=== PATIENT | female | born 1990 | race Caucasian/White ===

== ENCOUNTER 2022-07-06 12:42 | Emergency (ER) | payer BC, SELFPAY ==
[2022-07-06 13:03] VITALS: BP 115/47; PULSE 77; RESP 18; TEMP 36.5; O2SAT 98
--- NOTE | 2022-07-06 13:16 | ED.GENADULT ---
HPI - General Adult General Chief complaint: Unspecified Stated complaint: medication request Time Seen by Provider: 07/06/22 13:11 Source: patient Mode of arrival: ambulatory Limitations: no limitations History of Present Illness HPI narrative: Patient presents today requesting a medication refill. She has 5 days left of her Lamictal and Lexapro. She has a new patient appointment with a psychiatrist on July 23. She has been stable on her medications for the last 16 months. Denies any SI or HI at this time. Related Data Home Medications Medication Instructions Recorded Confirmed escitalopram oxalate 20 mg tablet 20 mg DAILY 07/06/22 07/06/22 lamotrigine 100 mg tablet 100 mg DAILY 07/06/22 07/06/22 Allergies Allergy/AdvReac Type Severity Reaction Status Date / Time acetaminophen [From Lortab] Allergy Unknown Verified 07/06/22 13:12 bupropion [From Wellbutrin] Allergy Unknown Verified 07/06/22 13:12 hydrocodone [From Lortab] Allergy Unknown Verified 07/06/22 13:12 levofloxacin [From Levaquin] Allergy Unknown Verified 07/06/22 13:12 metoclopramide [From Reglan] Allergy Unknown Verified 07/06/22 13:12 oseltamivir [From Tamiflu] Allergy Unknown Verified 07/06/22 13:12 varenicline [From Chantix] Allergy Unknown Verified 07/06/22 13:12 Review of Systems Review of Systems: CONSTITUTIONAL: Denies body aches, fever, chills, or sweats. EYES: Denies visual changes, redness, or discharge. ENT: Denies rhinorrhea, congestion, sore throat, or otalgia. CARDIOVASCULAR: Denies chest pain, palpitations, or edema. RESPIRATORY: Denies cough or dyspnea. GASTROINTESTINAL: Denies abdominal pain, nausea, vomiting, or diarrhea. GENITOURINARY: Denies dysuria or hematuria. SKIN: Denies rash, itching, or wounds. MUSCULOSKELETAL: Denies back pain, joint pain, or myalgia. NEUROLOGIC: Denies headache, numbness, tingling, or weakness. PSYCH: Denies depression or anxiety. [facility] Past Medical History Medical History (Updated 07/06/22 @ 13:21 by Fawn Smith, MASONRY CONTRACTOR ADMINISTRATOR, BC) Bipolar disorder Comments At time of signature, I have reviewed and agree with nursing past medical, surgical, social and family history unless otherwise noted. Please see nursing chart for further information. There is no relevant family history pertinent to the presenting complaint Exam Narrative: GENERAL: Well-appearing, well-nourished, and in no acute distress. HEAD: Normocephalic, atraumatic. EYES: EOMI. No redness or drainage. Conjunctivae normal. ENT: Mucous membranes pink and moist. NECK: Normal AROM. CHEST: No respiratory distress. EXTREMITIES: Normal range of motion. No edema. SKIN: Warm, dry, no rash. Capillary refill normal. Normal skin turgor. NEURO: No focal deficits. Alert and oriented x3. Gait steady. PSYCH: Normal affect. No signs of depression or anxiety. Course Course Level of Care: Express Care Visit Vital Signs Vital signs: Vital Signs Temperature 97.7 F 07/06/22 13:03 Pulse Rate 77 07/06/22 13:03 Respiratory Rate 18 07/06/22 13:03 Blood Pressure 115/47 L 07/06/22 13:03 Pulse Oximetry 98 07/06/22 13:03 Oxygen Delivery Room Air 07/06/22 13:03 Temperature 97.7 F 07/06/22 13:03 Pulse Rate 77 07/06/22 13:03 Respiratory Rate 18 07/06/22 13:03 Blood Pressure 115/47 L 07/06/22 13:03 Pulse Oximetry 98 07/06/22 13:03 Oxygen Delivery Room Air 07/06/22 13:03 Reviewed Medical Decision Making Differential Diagnosis Differential Diagnosis: Medication refill, bipolar disorder Vital Signs Vital Signs: Vital Signs Temperature 97.7 F 07/06/22 13:03 Pulse Rate 77 07/06/22 13:03 Respiratory Rate 18 07/06/22 13:03 Blood Pressure 115/47 L 07/06/22 13:03 Pulse Oximetry 98 07/06/22 13:03 Oxygen Delivery Room Air 07/06/22 13:03 Temperature 97.7 F 07/06/22 13:03 Pulse Rate 77 07/06/22 13:03 Respiratory Rate 18 07/06/22 13:03 Blood Pressure 115/47 L 07/06
[2022-07-06 13:25] VITALS: BP 126/74; PULSE 71
== END 2022-07-06 13:26 | disposition home or self-care (01) ==
PROVIDERS: Emergency Provider Nurse Practitioner
DX: Z76.0 Encounter for issue of repeat prescription (principal); F31.9 Bipolar disorder, unspecified
CPT/HCPCS: 99211; G0463

== ENCOUNTER 2022-07-22 13:28 | Emergency (ER) | payer BC, SELFPAY ==
--- NOTE | ~2022-07-22 | XR_ITS ---
EXAMINATION: XR chest 2V DATE: 07/22/2022 16:42 INDICATION: Left-sided rib pain with movement TECHNIQUE: PA and lateral views of the chest were obtained. COMPARISON: None FINDINGS: The lungs are clear with no focal airspace opacities, pulmonary edema, pleural effusion or pneumothor ax. The cardiomediastinal silhouette is normal. Mild thoracic spondylosis. IMPRESSION: 1. No acute cardiopulmonary disease. Reviewed, dictated and finalized at location A.
[2022-07-22 13:32] VITALS: BP 147/85; PULSE 86; RESP 16; TEMP 36.5; O2SAT 98
[2022-07-22 14:00] LABS: Basophils Percent Auto 0.5 % (0.2-1.2); Eosinophils Absolute Auto 0.1 K/mm3 (0-0.3); Eosinophils Percent Auto 0.9 % (0-4.4); Hematocrit 38.4 % (37.0-47.0); Hemoglobin 12.6 g/dL (12.0-15.0); Immature Granulocyte Absolute 0.02 K/mm3 (0.00-0.031); Immature Granulocyte Percent A 0.3 % (0-0.5); Lymphocytes Absolute Auto 3.19 K/mm3 (0.9-3.2); Mean Corpuscular HGB Conc 32.8 g/dl (32-36); Mean Corpuscular Hemoglobin 29.9 pg (26-34); Mean Platelet Volume 10.1 fl (7.4-10.4); Monocytes Absolute Auto 0.5 K/mm3 (0.1-0.6); Monocytes Percent Auto 6.3 % (2.6-8.5); Neutrophils Absolute Auto 3.6 K/mm3 (1.3-6.7); Platelet Count Result 265 k/mm3 (150-375); Red Blood Count 4.22 M/mm3 (4.2-5.4); Red Cell Distribution Width 13.9 % (11.5-14.5); White Blood Count 7.4 K/mm3 (4.5-10.0)
[2022-07-22 14:02] LABS: Appearance Urine Clear (Clear); Bilirubin Urine Negative (Negative); Blood Urine Negative (Negative); Color Urine Yellow (Yellow); Glucose Urine UA Negative (Negative); Ketones Urine Negative (Negative); Leukocyte Esterase Ur Negative LEU/UL (Negative); Nitrate Urine Negative (Negative); Protein Urine Negative (Negative); Urobilinogen Urine 0.2 mg/dL (<2.0)
[2022-07-22 14:09] LABS: Alanine Aminotransferase 29 U/L (6-35); Albumin Level 4.1 g/dL (3.5-5.1); Alkaline Phosphatase 79 U/L (38-126); Anion Gap 11 mmol/L (8-16); Aspartate Amino Transferase 31 U/L (14-36); Bilirubin,Total 0.4 mg/dL (0.2-1.3); Blood Urea Nitrogen 9 mg/dL (7-17); Calcium 9.3 mg/dL (8.4-10.2); Carbon Dioxide 31 mmol/L (22-30); Chloride 96 mmol/L (98-107); Estimated CRCL calculation 133 ml/min; Estimated Glomerular Filt Rate > 60; Glucose 107 mg/dL (65-110); Lipase 37 U/L (23-300); Potassium 3.8 mmol/L (3.4-5.0); Sodium 138 mmol/L (137-145)
[2022-07-22 14:15] LABS: Add Urine Microscopic? NO
[2022-07-22 16:22] VITALS: BP 117/79; PULSE 70; RESP 18; O2SAT 96
--- NOTE | 2022-07-22 16:24 | ED.ABDPAIN ---
HPI - Abdominal Pain General Chief Complaint: Abdominal Pain Stated Complaint: abd pain Time Seen by Provider: 07/22/22 16:08 History of Present Illness HPI narrative: Patient is a 32-year-old female here for evaluation of left-sided pain over the next several days. She states the pain is there all the time but is worse with movement, palpation, and after eating. She states that sharp pain located along the left side of her ribs. Patient has been moving heavy boxes at work and has also been under a lot of stress. She had decreased appetite today but was able to eat breakfast. No vomiting, fevers, chills, constipation, chest pain, syncope. Related Data Home Medications Medication Instructions Recorded Confirmed escitalopram oxalate 20 mg tablet 20 mg DAILY 07/06/22 07/06/22 lamotrigine 100 mg tablet 100 mg DAILY 07/06/22 07/06/22 omeprazole 40 mg capsule,delayed mg 07/22/22 07/22/22 release Allergies Allergy/AdvReac Type Severity Reaction Status Date / Time acetaminophen [From Lortab] Allergy Unknown Verified 07/22/22 13:34 bupropion [From Wellbutrin] Allergy Unknown Verified 07/22/22 13:34 hydrocodone [From Lortab] Allergy Unknown Verified 07/22/22 13:34 levofloxacin [From Levaquin] Allergy Unknown Verified 07/22/22 13:34 metoclopramide [From Reglan] Allergy Unknown Verified 07/22/22 13:34 oseltamivir [From Tamiflu] Allergy Unknown Verified 07/22/22 13:34 varenicline [From Chantix] Allergy Unknown Verified 07/22/22 13:34 Review of Systems Review of Systems: Gen: Denies fevers or chills Eyes: Denies eye pain or visual change ENT: Denies congestion Respiratory: Reports pain on left side of ribs. Denies shortness of breath or cough CV: Denies chest pain or palpitations GI: Denies abdominal pain nausea, emesis or diarrhea denies burning, urgency, frequency or hematuria Musculoskeletal: Denies back pain or muscle pain Neuro: Denies numbness, tingling, weakness or focal weakness Skin: Denies rash Except as documented, all other systems reviewed and negative PMFSH Past Medical History Medical History Bipolar disorder Exam Narrative: APPEARANCE: No acute distress, nontoxic, resting in bed EYES: EOMI HEENT: Normocephalic, atraumatic, OMM RESPIRATORY: No respiratory distress Clear to auscultation bilaterally with no rhonchi wheezing or rales. CARDIOVASCULAR: Regular rate and rhythm without murmurs rubs or gallops. ABDOMINAL: Soft, nontender, nondistended, no rebound or guarding MUSCULOSKELETAL: Tender to palpation along left lateral ribs just under her breast.moves all extremities. No clubbing, cyanosis or edema. NEURO: Awake and alert. Following commands, speech normal, no focal deficits SKIN:: Warm, dry. No rashes lesions or abrasions PSYCHIATRIC: Normal affect/mood Course Vital Signs Vital signs: Vital Signs Temperature 97.7 F 07/22/22 13:32 Pulse Rate 86 07/22/22 13:32 Respiratory Rate 16 07/22/22 13:32 Blood Pressure 147/85 H 07/22/22 13:32 Pulse Oximetry 98 07/22/22 13:32 Oxygen Delivery Room Air 07/22/22 13:32 Temperature 97.7 F 07/22/22 13:32 Pulse Rate 70 07/22/22 16:22 Respiratory Rate 18 07/22/22 16:22 Blood Pressure 117/79 07/22/22 16:22 Pulse Oximetry 96 07/22/22 16:22 Oxygen Delivery Room Air 07/22/22 13:32 MDM - Abdominal Pain MDM Narrative Medical decision making narrative: 32-year-old female here for evaluation of left lateral side pain for the past several days. She is nontoxic-appearing on exam with normal vital signs, the area of pain is slightly tender to palpation and worse with movement. She has no abdominal tenderness whatsoever, no vomiting, no leukocytosis and has a normal lipase, doubt intra-abdominal process. Tolerated p.o. in the ED. Chest x-ray is negative for acute disease, was most concerned over pneumothorax or pneumonia. Urinalysis is normal. Suspect musc
[2022-07-22] MEDS: IBUPROFEN 600 MG TABLET PO (17:36)
[2022-07-22 19:14] VITALS: BP 138/82; PULSE 61; RESP 18; O2SAT 96
== END 2022-07-22 19:15 | disposition home or self-care (01) ==
PROVIDERS: Emergency Medicine; Emergency Provider Emergency Medicine
DX: R07.81 Pleurodynia (principal); F31.9 Bipolar disorder, unspecified
CPT/HCPCS: 36415; 71046; 80053; 81003; 81025; 83690; 85025; 99283; A9270

== ENCOUNTER 2023-05-14 01:26 | Day surgery (SDC) | payer OTHER, SELFPAY ==
[2023-05-04 13:57] VITALS: BMI 56.7
--- NOTE | 2023-05-13 12:42 | P.PNAN_ITS ---
Anes - Initial Pre Proc Eval Procedure: Operation Date: 05/14/23 12:30 Proposed Procedures p Esophagogastroduodenoscopy & Colonoscopy - Alan Black MD Date/Time: 05/13/23 12:42 Surgeon: Alan Black MD Pre Op Diagnosis: fistula in ano, change in bowel habits, GERD Patient Data Age: 33 Gender: F Height: 1.63 m Weight: 150 kg Allergies Allergy/AdvReac Type Severity Reaction Status Date / Time acetaminophen [From Lortab] Allergy Unknown Verified 05/14/23 11:39 bupropion [From Wellbutrin] Allergy Unknown Verified 05/14/23 11:39 hydrocodone [From Lortab] Allergy Unknown Verified 05/14/23 11:39 levofloxacin [From Levaquin] Allergy Unknown Verified 05/14/23 11:39 metoclopramide [From Reglan] Allergy Unknown Verified 05/14/23 11:39 oseltamivir [From Tamiflu] Allergy Unknown Verified 05/14/23 11:39 shellfish derived Allergy Other Verified 05/14/23 11:39 varenicline [From Chantix] Allergy Unknown Verified 05/14/23 11:39 Home Medications Medication Instructions Recorded Confirmed Type omeprazole 40 mg capsule,delayed 40 mg PO DAILY 07/22/22 05/14/23 History release escitalopram oxalate 20 mg tablet 20 mg PO DAILY 05/04/23 05/14/23 History (Lexapro) gabapentin 600 mg tablet 600 mg PO DAILY 05/04/23 05/14/23 History lamotrigine 100 mg tablet 100 mg PO DAILY 05/04/23 05/14/23 History (Lamictal) lisdexamfetamine 30 mg capsule 30 mg PO DAILY 05/04/23 05/14/23 History (Vyvanse) metformin 500 mg tablet,extended 500 mg PO DAILY 05/04/23 05/14/23 History release 24 hr spironolactone 25 mg tablet 25 mg PO DAILY 05/04/23 05/14/23 History Patient hx anesthesia problems: none Family hx anesthesia problems: none Results Review: All pre-operative results and documents have been reviewed as part of the pre-op erative evaluation. [facility] Past Medical History Medical History (Updated 05/14/23 @ 12:12 by Alan Black MD) ADHD Bipolar disorder Diabetes type 2, controlled PTSD (post-traumatic stress disorder) Social History Social History Smoking status: Current every day smoker Tobacco type: cigarettes and e-cigarettes/vaping Additional smoking assessment comments: used to smoke 1 ppd cigarettes, switched to e-cigs Living arrangements: with family Katharines - Dony Final PreProcedure Day of Procedure 05/13/23 12:42 Patient weight: super morbidly obese Heart: regular rate and rhythm Lungs: clear to auscultation Airway: Mallampati scale class II Neurological: alert and oriented Last oral intake: >/= 8 hours ASA classification: III Emergent: no Anesthetic plan: proceed Anesthesia type and monitoring: general GIVS and standard monitoring Results Review: All pre-operative results and documents have been reviewed as part of the pre- operative evaluation. Informed Consent: The patient's anesthetic plan and its attendant risks and benefits were discussed with the patient/family/POA. Questions were solicited and answers provided to the satisfaction of the patient/family/POA.
[2023-05-14 11:41] VITALS: BP 127/74; PULSE 71; RESP 18; TEMP 36.1; O2SAT 100
[2023-05-14] MEDS: LACTATED RINGERS 1,000 ML 150 ML IV CONT (11:43)
--- NOTE | 2023-05-14 12:09 | PM.HPGS ---
History of Present Illness History of Present Illness Consent: Risks, benefits, and alternatives have been discussed and questions answered. Patient agrees to proceed with procedure. Chief complaint: fistula in ano, change in bowel habits, GERD Narrative: Luz Elena Chang is a 33 year old female Referred for both colonoscopy and EGD. Patient apparently has had intermittent drainage near her anus. She recently was seen by a surgeon and was found to have an anal fistula. Patient gives a history of chronic constipation. She has intermittent diarrhea stools. For these reasons colonoscopy is recommended to exclude inflammatory bowel disease. Patient denies any bleeding. She denies any fever. She denies specific abdominal pain. Additionally patient has a chronic history of heartburn and acid reflux. She states 10 years ago was diagnosed. She was placed on omeprazole 20mg p.o. daily with good results. When she tries to discontinue this medication she promptly will have recurrence of her heartburn. She has been unable to transition to other medications. Patient denies any dysphagia bleeding. An EGD is requested at this time. Patient's past medical history is significant for diabetes and bipolar illness. Review of Systems Review of Systems: Review of systems noncontributory. [facility] Past Medical History Medical History (Updated 05/14/23 @ 12:12 by Alan Black MD) ADHD Bipolar disorder Diabetes type 2, controlled PTSD (post-traumatic stress disorder) Social History Social History Smoking status: Current every day smoker Tobacco type: cigarettes and e-cigarettes/vaping Additional smoking assessment comments: used to smoke 1 ppd cigarettes, switched to e-cigs Living arrangements: with family Meds Home Medications and Allergies Home Medications Medication Instructions Recorded Confirmed Type omeprazole 40 mg capsule,delayed 40 mg PO DAILY 07/22/22 05/14/23 History release escitalopram oxalate 20 mg tablet 20 mg PO DAILY 05/04/23 05/14/23 History (Lexapro) gabapentin 600 mg tablet 600 mg PO DAILY 05/04/23 05/14/23 History lamotrigine 100 mg tablet 100 mg PO DAILY 05/04/23 05/14/23 History (Lamictal) lisdexamfetamine 30 mg capsule 30 mg PO DAILY 05/04/23 05/14/23 History (Vyvanse) metformin 500 mg tablet,extended 500 mg PO DAILY 05/04/23 05/14/23 History release 24 hr spironolactone 25 mg tablet 25 mg PO DAILY 05/04/23 05/14/23 History Allergies Allergy/AdvReac Type Severity Reaction Status Date / Time acetaminophen [From Lortab] Allergy Unknown Verified 05/14/23 11:39 bupropion [From Wellbutrin] Allergy Unknown Verified 05/14/23 11:39 hydrocodone [From Lortab] Allergy Unknown Verified 05/14/23 11:39 levofloxacin [From Levaquin] Allergy Unknown Verified 05/14/23 11:39 metoclopramide [From Reglan] Allergy Unknown Verified 05/14/23 11:39 oseltamivir [From Tamiflu] Allergy Unknown Verified 05/14/23 11:39 shellfish derived Allergy Other Verified 05/14/23 11:39 varenicline [From Chantix] Allergy Unknown Verified 05/14/23 11:39 Vital Signs Vital Signs - 24 hr 05/14/23 11:41 Temperature 97 F L Pulse Rate 71 Respiratory Rate 18 Blood Pressure 127/74 Pulse Oximetry 100 Oxygen Delivery Room Air Exam Narrative: Physical exam reveals patient to be alert. Vital signs stable. HEENT exam is unremarkable. Patient is anicteric. Lungs are clear to auscultation and percussion. Heart is without murmur or extra sounds. Abdomen Is obese. bowel sounds are present soft nontender with no organomegaly. Digital external rectal exam normal. Assessment and Plan Assessment and plan (1) Anal fistula: Code(s): K60.3 - Anal fistula Status: Acute Assessment and Plan: Anal fistula followed by surgery. Surgical repair anticipated. Colonoscopy will be performed prior to this procedure
--- NOTE | 2023-05-14 13:02 | SUR.OPER ---
EGD started at 1255 and ended at 1256. Colonoscopy began at 1303.
[2023-05-14 13:15] VITALS: BP 99/60; PULSE 61; RESP 258; O2SAT 98
[2023-05-14 13:25] VITALS: BP 99/60; PULSE 61; RESP 28; O2SAT 98
[2023-05-14 13:35] VITALS: BP 101/66; PULSE 62; RESP 28; O2SAT 98
== END 2023-05-14 13:41 | disposition home or self-care (01) ==
PROVIDERS: PCP Physician Assistant; Visit Provider Internal Medicine Gastroenterology
PROC: 0DJ08ZZ Inspection of Upper Intestinal Tract, Via Natural or Artificial Opening Endoscopic (ICD-10-PCS; CPT 43235; principal; 2023-05-14 12:30)
DX: R19.4 Change in bowel habit (principal); K60.3 Anal fistula; K64.8 Other hemorrhoids; K21.9 Gastro-esophageal reflux disease without esophagitis; E11.9 Type 2 diabetes mellitus without complications; F31.9 Bipolar disorder, unspecified; F17.210 Nicotine dependence, cigarettes, uncomplicated; F17.290 Nicotine dependence, other tobacco product, uncomplicated; E66.9 Obesity, unspecified; Z68.43 Body mass index [BMI] 50.0-59.9, adult
CPT/HCPCS: 43239; 45378; 87081; J2704; J7120

== ENCOUNTER 2025-05-21 15:52 | Outpatient (CLI) | payer OTHER, SELFPAY ==
--- NOTE | ~2025-05-21 | US_ITS ---
EXAMINATION: US pelvic complete w TV DATE: 05/21/2025 17:10 INDICATION: Pelvic pain TECHNIQUE: Multiple transabdominal and endovaginal sonographic images of the pelvis were obtained. COMPARISON: None. FINDINGS: The uterus measures 7.7 x 3.6 x 4.9 cm. Linear echogenic and shadowing IUD within the endometrial can al. The endometrial complex measures 7 mm in thickness. 1.6 cm hypoechoic fibroid in the anterior adriel rine fundus. 5 mm anechoic nabothian cyst at the cervix. The right ovary measures 3.0 x 1.9 x 1.5 cm. There are a few anechoic follicles in the right ovary wi th a 2.1 cm dominant follicle. The left ovary measures 2.5 x 1.7 x 2.0 also with a couple anechoic fo llicles the largest measuring 1.2 cm. There is normal vascular flow in the ovaries. There is no free fluid in the pelvis. IMPRESSION: 1. IUD in expected position within the endometrial canal. 2. 1.6 cm uterine fibroid. Reviewed, dictated and finalized at location B.
--- OUTSIDE RECORDS SUMMARY | 2025-05-21 16:02 | XMS_ITS | Encounter Summary ---
Author Organization [facility] Healthcare Address [address] [place] [address] Care Team Providers Care Life Skills Trainer Name Role Phone Steph Kessler Primary Care Provider [phone] Aleyda Palomo Unavailable Unavailable Radha Ivy MD Unavailable Chao Gibson MD Unavailable [phone] Encounter Details Date Type Department Care Team (Late st Contact Info) Description 03/21/2025 Results Follow-Up [facility] Medical Group Family Medicine [address] [phone] Nikole Ovalles, TECHNICAL SUPPORT DIRECTOR [address] [facility] [address] [place], [place] [id number] Hemoglobin A1c, Basic metabolic panel, eGFR Social History Tobacco Use Types Packs/Day Years Used Date Smoking Tobacco: Every Day Cigarettes Vaping Started: 11/22 Smokeless Tobacco: Never Comments:Looking at options for quitting ao i can do ao successfully this time. AUDIT-C Answer Date Recorded Q1: How often do you have a drink containing alcohol? Never 03/20/2025 Q2: How many drinks containi ng alcohol do you have on a typical day when you are drinking? Patient does not drink Q3: How often do you have si x or more drinks on one occasion? Never 03/20/2025 PHQ-2 Answer Date Recorded PHQ-2 Total Score (If total score is 3 or more points, staff should administer the PHQ-9) 0 03/20/2025 Hunger Vital Sign Answer Date Recorded Within the past 12 months, y ou worried that your food would run out before you got the money to buy more. Never true 09/29/20 23 Within the past 12 months, t he food you bought just didn't last and you didn't have money to get more. Never true 09/29/2023 Personal Safety Answer Date Recorded Have you ever been in or are you currently in a harmful physical or emotional relationship or is someone making you feel afraid or unsafe? 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 Sexual Orientation Bisexual 10/26/2022 10 :54 AM ECOMMER[employer] PROJECT MANAGER documented as of this encounter Plan of Treatment Upcoming Encounters Date Type Department Care Team (Latest Contact Info) Description 05/31/2025 9:30 AM CDT Hospital Encounter [facility] [address] [place] [id number] Ramirez Mccarty MD [address] [place] [address] DR PAUL [address] [place] [phone] 05/31/2025 9:30 AM CDT - 05/31/2025 10:00 AM CDT Surgery [facility] [address] [place] [id number] Ramirez Mccarty MD [facility] [address] PAUL [address] [place] [id number] ESOPHAGOGASTRODUODENOSCOPY Scheduled Procedures Name Priority Associated Diagnoses Date/Ti me ESOPHAGOGASTRODUODENOSCOPY Abdominal pain 05/31/2025 9:30 AM CDT COLONOSCOPY Abdominal pain 05/31/2025 9:30 AM CDT documented as of this encounter Goals Goal Patient Goal Type Associated Problems Recent Progress Patient-Stated? Author CCM Chronic Pain Care Plan Chronic Care Management Worsening( 11:03 AM CDT) No aTli Ross, RN Note: Problem: Chronic Pain Goals: 1. Minimize further functional decline 2. Maximize quality of life 3. Control pain Strategies: - Activity/exercise program recommendation - Conservative stepwise pain medicine strategy with multi-disciplinary approach - Recommend healthy lifestyle strategies and compensatory methods as needed documented as of this encounter Visit Diagnoses Not on filedocumented in this encounter Care Teams Life Skills Trainer Relationship Specialty Start Date End Date Steph Kessler PA [address] [place] [address] PCP - General Critical Care Med 10/09/22 Aleyda Palomo 09/09/23 Radha Ivy MD [address] [place] [address] Anesthesiologist Pain Management 12/25/24 Chao Gibson MD [address] [place] [id number] Consulting Physician General Surgery 04/20/25 documented as of this encounter
--- OUTSIDE RECORDS SUMMARY | 2025-05-21 16:02 | XMS_ITS | Patient Health Record ---
Author Organization [facility] Billing Info Address [address] [place] [address] [place] [address] Care Team Providers Care Home Economics Expert Name Role Phone NANCY CHACKO Primary Care Provider Allergies Allergen (clinical drug ingredient) Drug/Non Drug Allergy documented on EMR Reaction Allergy Type Onset Date Status metoclopramide reglan (uncoded) hallucination Allergy Active varenicline Chantix rash Drug Allergy Activ e Levaquin muscle aches Drug Allergy Acti ve Lortab hallucination Drug Allergy Act cony oseltamivir Tamiflu suicidal ideation Drug Allergy Active Augmentin GI distress Drug Allergy Activ e SHELLFISH anaphylaxis Drug Allergy Activ e Reason For Referral No Information Medications Medication SIG (Take, Route, Frequency, Duration) Notes Start Date End Date Status Omeprazole 40 MG TAKE ONE CAPSULE BY MOUTH DAILY for 90 Active Fluticasone Propionate 50 MCG/ACT 1 spray in each nostril Nasally BID for 30 day(s) 10/27/2021 Active Azithromycin 250 MG 2 tablet on the s t day, then 1 tablet daily for 4 days Orally Once a day for 5 day(s) 06/27/2020 Active Metronidazole 500 MG 1 tablet Orally Thr ee times a day for 10 day(s) 10/27/2021 Active PredniSONE 20 MG 2 tablets Orally Onc e a day for 5 day(s) 07/29/2016 Active Mirena Active Albuterol Sulfate HFA 108 (90 Base) MCG/ACT 2 puffs as needed Inhalation every 6 hrs as needed for 30 days PRN 10/26/2017 Active Vraylar 1.5 MG 1 capsule Orally for 30 day(s) Not-Taking Multivitamin - 1 tablet Orally Once a day for 30 day(s) Not-Taking Lexapro 20 MG 1 tablet Orally Once a day for 90 days 05/28/2020 Active Zoloft 25 MG 1 tablet Orally Once a day Not-Taking Latuda 20 MG 2 tablets with food Orally Once a day for 30 day(s) Not-Taking Oil Base CBD OIL oral drops Not-Taking Metformin HCl 500 MG 1 tablet with a dina l Orally BID for 30 day(s) 05/27/2021 Not-Taking Lamictal 100 MG 1 tablet Orally Once a day for 90 days Active Zyrtec Allergy 10 MG 1 tablet Orally Onc e a day Not-Taking Fluticasone Propionate 50 MCG/ACT 1 spray in each nostril Nasally BID for 30 day(s) 03/06/2021 Not-Taking Social History Tobacco Use: Social History Observation Description Date Details (start date - stop date) Current Smoker NA - NA Tobacco Status: Question Answer Notes Patient is a current every day smoker e-cig and occasional cigarettes Problems Problem Type SNOMED Code ICD Code Onset Dates Problem Status W/U Status Risk Notes Problem 088536648 Hypothyroidism (244.9) Active confirmed Problem 64349116308792 Obesity (278.00) Active confirme d Problem 15006341 Allergic rhiniti s (477.9) Active confirmed Problem Bipolar 2 disord er (296.89) Active confirmed Problem 5379215 Chronic gastriti s (535.10) Active confirmed Problem 13803662 Bipolar 2 disord er (F31.81) Active confirmed Problem 95138820731873976 Hx of endometr iosis (Z87.42) Active confirmed Problem 187327134 Gastroesophageal reflux disease, esophagitis presence not specified (K21.9) Active confirmed Plan Of Treatment No Information Insurance Providers Payer Name Payer Address Payer Phone Subscriber Number Group Number Insured Name Patient Relationship to Insured Coverage Start Date Coverage End Date [id number] S 1 [facility] [place] [facility] [address] [place], [place] [id number] [facility] - patient is the insured 9 Medications Administered Medication Instructions Date of Administration Dosage Notes zMethylprednisolone Acetate 40 mg (Depo Medrol) 03/12/2016 80 ug zMethylprednisolone Acetate 80 mg (Depo Medrol) 05/31/2015 80 mg zMethylprednisolone Acetate 80 mg (Depo Medrol) 07/29/2016 80 mL zMethylprednisolone Acetate 80 mg (Depo Medrol) 12/07/2016 80 mg zMethylprednisolone Acetate 80 mg (Depo Medrol) 10/26/2017 80 mg zMethylprednisolone Acetate 80 mg (Depo Medrol) 06/24/2020 80 [facility] [id number] MethylPREDNISolone Acetate 10/27/2021 80 mg Dexamethasone Na Phosphate 05/31/2015 6 mg Dexamethasone Na Phosphate 07/29/2016 6 mg Dexamethasone Na Phosphate 12/07/2016 6 mg Dexamethasone Na Phosphate 10/26/2017 6 mg Dexamethasone Na Phosphate 06/24/2020 6 mg [facility] [id number] Dexamethasone Sodium Phosphate 10/27/2021 4 mg Dexamethasone Sodium Phosphate 10/27/2021 2 mg Dexamethasone Acetate 03/12/2016 6 mg Medical (General) History Medical History History ICD Code GERD obesity Anemia Depression/anxiety Thyroid disease gardisil X 3 last Td 2006 last pap/ physical 05/10/2012 Surgical History Surgery Date(Month/Year) tonsillectomy 1997 pilonidial cyst drained 2019 Hospitalization History Reason Date(Month/Year) suicidal 11/2009
--- OUTSIDE RECORDS SUMMARY | 2025-05-21 16:02 | XMS_ITS | Encounter Summary ---
Author Organization [facility] Address [address] [facility] [address] Care Team Providers Care Fitness Sales Consultant Name Role Phone Unavailable Primary Care Provider Unavailabl e Encounter Details Date Type Department Care Team (Late st Contact Info) Description 07/09/2023 Lab Requisition [facility] - DermPath Lab [address] [facility] [place] [address] Chao Larkin MD [address] [address] [place] [address] Social History Tobacco Use Types Packs/Day Years Used Date Smoking Tobacco: Never Assessed Comments Unknown Sex and Gender Information Value Date Recorded Sex Assigned at Not on file Legal Sex Female 4:15 PM CDT Gender Identity Not on file Sexual Orientation Not on file documented as of this encounter Plan of Treatment Not on file documented as of this encounter Procedures Procedure Name Priority Date/Time Associated Diagnosis Comments DERMATOPATHOLOGY Routine 07/07/2023 3:33 AM CDT documented in this encounter Results * DERMATOPATHOLOGY (07/07/2023 3:33 AM CDT) Case Report Dermatopathology Report Case: [id number] Authorizing Provider: Chao Larkin MD Collected: 07/07/2023 03:33 AM Ordering Location: [facility] DermPath Lab Received: 07/12/2023 06:15 AM Pathologist: Liyah Gray MD Specimen: Skin, right upper back 12:54 PM CDT DERMATOPATHOLOGY LABORATORY Final Diagnosis Specimen A. 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 Other R/O Malignancy 3 12:54 PM CDT DERMATOPATHOLOGY LABORATORY Gross Description Specimen A: Received is one formalin filled container labeled with the patient's name and designated right upper back. The specimen consists of a shave biopsy measuring 6x4x2 mm. Jar 0. 3 12:54 PM CDT DERMATOPATHOLOGY LABORATORY Microscopic Description Specimen A. SKIN, right upper back: There are nests of melanocytes at the dermal-epidermal junction and within the dermis. 3 12:54 PM CDT DERMATOPATHOLOGY LABORATORY Disclaimer An external and internal positive and negative controls are appropriate for the histochemical, immunohistochemical and immunofluorescence stain(s) in this case (if any), except where stated explicitly. The performance characteristics of the stain(s) cited in this report were developed and its performance characteristic determined by the Dermatopathology Laboratory at [facility], directed by Dr. Giancarlo Cam. These tests need not be, and therefore are not, approved by the [place] Food and Drug Administration. The tests are used for clinical purposes. Billing Codes Specimen Charges Stain Charges 43740 1 3 12:54 PM CDT DERMATOPATHOLOGY LABORATORY Embedded Images 3 12:54 PM CDT DERMATOPATHOLOGY LABORATORY Pathology/Cytolo gy TISSUE SPECIMEN FROM SKIN / Unknown 07/07/2023 3:33 AM CDT 07/12/2023 6:15 AM CDT Chao Larkin MD LAB - PATHOLOGY/CYTOLOGY ORD ERABLES Final Result DERMATOPATHOLOGY LABORATORY [facility] - Department of Dermatology [address] [place] [address], [facility] [phone] documented in this encounter Visit Diagnoses Not on filedocumented in this encounter
--- OUTSIDE RECORDS SUMMARY | 2025-05-21 16:02 | XMS_ITS | Patient Health Record ---
Author Organization [facility] Address [address] [place] [address] Care Team Providers Care Livestock Agent Name Role Phone Daniele Lee Primary Care Provider Mayelin Cardoso Unavailable Allergies Allergen (clinical drug ingredient) Drug/Non Drug Allergy documented on EMR Reaction Allergy Type Onset Date Status Shellfish (FN) Shellfish (uncoded) Unknown Allergy Active Chantix Unknown Drug Allergy Active Levaquin Unknown Drug Allergy Active Lortab Unknown Drug Allergy Active Reglan Unknown Drug Allergy Active hydrocodone hydrocodone Unknown Drug Allergy Act cony Reason For Referral No Information Medications Medication SIG (Take, Route, Frequency, Duration) Notes Start Date End Date Status Multivitamin - 1 tablet Orally Once a day Active Iron 325 (65 Fe) MG 1 tablet Orally Once a day Active Lexapro 10 MG 1 tablet Orally Once a day Active Omeprazole 40 MG 1 capsule 30 minutes before morning meal Orally Once a day Active Vraylar 1.5 MG 1 capsule Orally Active Albuterol Sulfate HFA 108 (90 Base) MCG/ACT 1 puff as needed Inhalation every 4 hrs Active ZyrTEC 10 mg 1 tab(s) orally once a day *Pick strength-[facility] for [facility]* Active Problems Problem Type SNOMED Code ICD Code Onset Dates Problem Status W/U Status Risk Notes Problem Atypical facial pain (23553734) 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) Active confirmed Problem Allergic rhinitis caused by pollen (disorder) (26265436) Allergic rhinitis due to pollen (J30.1) Active confirmed Problem Chronic pansinusitis (84016614) Chronic pansinusitis (J32.4) Active confirmed Problem Deviated nasal septum (158830373) Deviated nasal septum (J34.2) Active confirmed Plan Of Treatment Pending Test Test Name Order Date Home Sleep Study 03/17/2021 Insurance Providers Payer Name Payer Address Payer Phone Subscriber Number Group Number Insured Name Patient Relationship to Insured Coverage Start Date Coverage End Date [facility] [employer] [address] [facility] [place] [phone] [id number] MADELYN LINARES Self - patient is the insured Medical (General) History Medical History History ICD Code GERD Anemia Depression/Anxiety Thyroid Disease Surgical History Surgery Date(Month/Year) Tonsillectomy Tonsillectomy 1998 Pilonidial Cyst Drained Hospitalization History Reason Date(Month/Year) Suicidal 2010
--- OUTSIDE RECORDS SUMMARY | 2025-05-21 16:02 | XMS_ITS | Clinical Summary ---
Author Organization [facility] Address [address] [facility] [place] [address] Care Team Providers Care Surgery Consultant Name Role Phone Unavailable Primary Care Provider Unavailabl e Source Comments [facility],non-owned Affiliates and Associated Physician Practices is amultiple site organization consisting of ambulatory clinics and hospital sitesin [place], [place], [place]. This disclosure is being madepursuant to the Care Everywhere program and may not contain all information available regarding this patient. Last updated 18.[facility] Social History Tobacco Use Types Packs/Day Years Used Date Smoking Tobacco: Never Assessed Comments Unknown Sex and Gender Information Value Date Recorded Sex Assigned at Not on file Legal Sex Female 4:15 PM CDT Gender Identity Not on file Sexual Orientation Not on file Plan of Treatment Health Maintenance Due Date Last Done Comments HIV SCREENING 2005 HEPATITIS C SCREENING 04/07/2008 DTAP/TDAP/TD VACCINES (1 - Tdap) 2009 HEPATITIS B VACCINE (1 of 3 - 19+ 3-dose series) 2009 PAP SMEAR 2011 COVID-19 VACCINE ( - 2023-2 5 season) 2024 DEPRESSION SCREENING 11/22/2024 INFLUENZA VACCINE (Season Ended) 2025 ZOSTER VACCINE (1 of 2) 2040 HIB VACCINE Aged Out No longer eligi ble based on patient's age to complete this topic HPV VACCINE Aged Out No longer eligi ble based on patient's age to complete this topic MENINGOCOCCAL (Group B) VACC INE SHARED DECISION-MAKING Aged Out No longer eligibl e based on patient's age to complete this topic MENINGOCOCCAL GROUPS A/C/Y/W VACCINE Aged Out No longer eligible b ased on patient's age to complete this topic PNEUMOCOCCAL VACCINE Aged Out No long er eligible based on patient's age to complete this topic Insurance [facility]
--- OUTSIDE RECORDS SUMMARY | 2025-05-21 16:02 | XMS_ITS ---
Author Organization [facility] Address [address] [place] [address] Care Team Providers Care Professor Of Radiology Name Role Phone MISSY MORTON Primary Care Provider zzMigration, Provider Unavailable Unavailabl e Allergies Allergen (clinical drug ingredient) Drug/Non Drug Allergy documented on EMR Reaction Allergy Type Onset Date Status LEVAQUIN (uncoded) other Allergy A ctive LORTAB (uncoded) Unknown Allergy Act cony metoclopramide Reglan Unknown Drug Allergy Ac tive oseltamivir Tamiflu Unknown Drug Allergy Activ e varenicline Chantix Unknown Drug Allergy Activ e REASON FOR VISIT [facility] To [facility] Conversion Encounter Medications Medication SIG (Take, Route, Frequency, Duration) Notes Start Date End Date Status Lexapro 20 MG 1 tab(s) orally once a day for 30 day(s) Active Ventolin HFA 108 (90 Base) MCG/ACT 2 puff(s) inhaled 4 times a day Active Omeprazole 40 MG 1 cap(s) orally once a day Active Encounters Encounter Location Date Provider Diagnosis [facility] [address] [place] [address] 01/07/2025 Provider zzMigration Plan Of Treatment No Information Progress Notes * MAR JARRETTOB:1989 (35 yo F)Acc No.[id number]:01/07/2025 Patient: Estevan MADELYN SUE Provider: Estevan Orosco :1990 A ge:34 Y S ex:Female Date:01/07/2025 Address:[facility] [place], [id number] Pcp:MISSY MORTON Subjective: * Chief Complaints: * [facility] . [facility] Conversion Encounter. * Medical History: * Medications: T aking Omeprazole 40 MG Capsule Delayed Release 1 cap(s) orally once a day , Taking Ventolin HFA 108 (90 Base) MCG/ACT Aerosol Solution 2 puff(s) inhaled 4 times a day , Taking Lexapro 20 MG Tablet 1 tab(s) orally once a day * Allergies: C hantix, LORTAB, Tamiflu, Reglan, LEVAQUIN: other - Allergy. Objective: Assessment: Plan: * Treatment: Forms: * Billing Information: * Visit Code: * Procedure Codes: * Electronic signature of Isaac Ruiz on 05/21/2025 at 04:02 PM CDT Sign off status: Pending * Provider: Estevan Orosco Date: 0 01/07/2025 Generated for Carolyn knapp/Eyal/Shaheedsmitting on: 0 05/21/2025 04:02 PM CDT
--- OUTSIDE RECORDS SUMMARY | 2025-05-21 16:02 | XMS_ITS | Encounter Summary ---
Author Organization [facility] Address [address] [place] [address] Care Team Providers Care Poultry Scalder Name Role Phone Steph Kessler Primary Care Provider [phone] Aleyda Palomo Unavailable Unavailable Radha Ivy MD Unavailable [phone] Chao Gibson MD Unavailable [phone] Encounter Details Date Type Department Care Team (Late st Contact Info) Description 04/23/2025 Results Follow-Up [facility] Family Medicine [address] [address] Steph Kessler PA [address] [phone] XR Abdomen 1 View AP Social History Tobacco Use Types Packs/Day Years Used Date Smoking Tobacco: Every Day Cigarettes Vaping Started: 11/22 Smokeless Tobacco: Never Comments:Looking at options for quitting ao i can do ao successfully this time. AUDIT-C Answer Date Recorded Q1: How often do you have a drink containing alcohol? Never 04/11/2025 Q2: How many drinks containi ng alcohol do you have on a typical day when you are drinking? Patient does not drink Q3: How often do you have si x or more drinks on one occasion? Never 04/11/2025 PHQ-2 Answer Date Recorded PHQ-2 Total Score (If total score is 3 or more points, staff should administer the PHQ-9) 0 04/11/2025 Hunger Vital Sign Answer Date Recorded Within [...] making you feel afraid or unsafe? Denies 04/20/2025 Comments No Sex and Gender Information Value Date Recorded Sex Assigned at Not on file Legal Sex Female 3:16 PM CDT Gender Identity Female 10/26/2022 10:54 AM BRIDGE INSPECTOR Sexual Orientation Bisexual 10/26/2022 10 :54 AM BRIDGE INSPECTOR documented as of this encounter Miscellaneous Notes * Telephone Encounter - Steph Kessler PA - 05/10/2025 11:28 AM CDT Thanks! * Telephone Encounter - Verenice Gray LPN - 05/10/2025 11:22 AM CDT I spoke with patient and given her pain and her concerns, we decided her going to the [facility] would be the best next step. She will keep us updated documented in this encounter Plan of Treatment Upcoming Encounters Date Type Department Care Team (Latest Contact Info) Description 05/31/2025 9:30 AM CDT Hospital Encounter [facility] GI [facility] [address] [place] [address] Ramirez Mccarty MD [address] [place] [id number] 05/31/2025 9:30 AM CDT - 05/31/2025 10:00 AM CDT Surgery [facility] [address] [place] [address] Ramirez Mccarty MD [facility] [address] PA[address] [place] [address] ESOPHAGOGASTRODUODENOSCOPY Scheduled Procedures Name Priority Associated Diagnoses Date/Ti me ESOPHAGOGASTRODUODENOSCOPY Abdominal pain 05/31/2025 9:30 AM CDT COLONOSCOPY Abdominal pain 05/31/2025 9:30 AM CDT documented as of this encounter Goals Goal Patient Goal Type Associated Problems Recent Progress Patient-Stated? Author CCM Chronic Pain Care Plan Chronic Care Management Worsening( 11:03 AM CDT) Tali Olsen, RN Note: Problem: Chronic Pain Goals: 1. Minimize further functional decline 2. Maximize quality of life 3. Control pain Strategies: - Activity/exercise program recommendation - Conservative stepwise pain medicine strategy with multi-disciplinary approach - Recommend healthy lifestyle strategies and compensatory methods as needed documented as of this encounter Visit Diagnoses Not on filedocumented in this encounter Care Teams Poultry Scalder Relationship Specialty Start Date End Date Steph Kessler PA [address] [place] [address] PCP - General Critical Care Med 10/09/22 Aleyda Palomo 09/09/23 Radha Ivy MD [address] [place] [address] Anesthesiologist Pain Management 12/25/24 Chao Gibson MD [address] [place] [phone] Consulting Physician General Surgery 04/20/25 documented as of this encounter
--- OUTSIDE RECORDS SUMMARY | 2025-05-21 16:02 | XMS_ITS | Referral Summary ---
Author Organization [facility] Address [address] [place] [address] Phone Care Team Providers Care Enroute Controller Name Role Phone Steph Kessler Primary Care Provider Aleyda Palomo Unavailable Unavailable Radha Ivy MD Unavailable Chao Gibson MD Unavailable Encounters Date Type Department Care Team Description 05/10/2025 Orders Only [facility] at [address] [place] [address] Ramirez Mccarty MD Abdominal pain (Primary Dx) 05/10/2025 2:13 PM CDT - 05/10/2025 3:12 PM CDT Emergency [facility] Emergency Department [address] [place] [address] Abdominal pain (Primary Dx) Discharge Disposition: Discharge to home or self care 04/30/2025 10:50 AM CDT - 04/30/2025 11:59 PM CDT Hospital Encounter [facility] at the [facility] [address] [place] [address] Advanced Medicine [address] [place] [address] Meir Hernandez NP Lumbar radiculopathy (Primary Dx); Chronic bilateral low back pain with left-sided sciatica Discharge Disposition: Discharge to home or self care 04/23/2025 Results Follow-Up [facility] [address] [phone] Steph Kessler PA XR Abdomen 1 View AP 04/20/2025 9:30 AM CDT - 04/20/2025 10:55 AM CDT Surgery [facility] [address] [place] [id number] Chao Gibson MD RECTAL EXAMINATION UNDER ANESTHESIA, UNROOFING OF PERIANAL CHRONIC INFLAMMATORY CAVITY, 04/20/2025 9:32 AM CDT Anesthesia Event [facility] [address] [place] [id number] Sylvester Brannon MD Lee, Walter, MD 04/20/2025 7:09 AM CDT - 04/20/2025 12:02 PM CDT Hospital Encounter [facility] [address] [place] [phone] Chao Gibson MD Discharge Disposition: Discharge to home or self care 04/17/2025 1:20 PM CDT Pre-Admission Testing [facility] Pre Admit Testing [address] [place] [id number] Pre-op testing (Primary Dx) 04/11/2025 3:09 PM CDT - 04/11/2025 11:59 PM CDT Hospital Encounter [facility] Diagnostic Imaging [address] [place] [id number] Chronic idiopathic constipation; LUQ pain Discharge Disposition: Discharge to home or self care 04/11/2025 Letter (Out) [facility] [address] [place] [phone] 04/11/2025 Telephone [facility] Medicine [address] [place] [phone] Steph Kessler PA 04/11/2025 11:00 AM CDT Office Visit [facility] [address] [place] [phone] Steph Kessler PA Pilonidal abscess of cleft (Primary Dx); Chronic idiopathic constipation; LUQ pain 04/04/[address] [phone] Steph Kessler PA 03/21/2025 Results Follow-Up [address] [phone] Nikole Ovalles NP Hemoglobin A1c, Basic metabolic panel, eGFR 03/20/2025 1:[address] [facility] OP Lab [address] [place] [phone] Prediabetes; Pure hypercholesterolemia 03/20/2025 12:30 PM CDT Office Visit [address] [phone] Steph Kessler PA Chronic idiopathic constipation (Primary Dx); Gastroesophageal reflux disease, unspecified whether esophagitis present; Acute cystitis without hematuria; Foraminal stenosis of lumbar region; At moderate risk for fall 03/08/2025 Nurse Triage [address] [phone] Steph Kessler PA 02/20/2025 E-Visit [address] [phone] Steph Kessler PA Your Medications from Last 3 Months Allergies Active Allergy Reactions Criticality Noted Date Comments Amoxicillin-Pot Clavulanate Other (See comments) Medium 04/23/2016 Stomach upset Augmentin Hydrocodone-Acetaminoph en Hallucinations,Me ntal status changes,Rash Medium 04/23/2016 hallucinations Levofloxacin Other (See comments) Low 01/23/2017 Body aches Metoclopramide Unknown 08/31/2020 Psychosis, hallucinations Oseltamivir Mental status changes,Hallucina tions Medium 08/26/2017 tamiflu Shellfish Containing Products Shortness of breath High 02/19/2023 Shellfish Derived Shortness of breath High 02/06/2023 Varenicline Rash Medium 04/23/2016 Chantix Bupropion Delusions Medium 10/27/2022 Medications lamoTRIgine (LaMICtal) 100 mg tablet Take 1 tablet (100 mg total) by mouth daily 10/09/20 22 Active multivitamin with minerals tablet Take 1 tablet by mouth daily Active escitalopram (Lexapro) 20 mg tablet Take 1 tablet (20 mg total) by mouth daily 10/11/20 23 Active ketoconazole (NIZORAL) 2 % creamIndications: Seborrheic dermatitis APPLY CREAM TOPICALLY TO AFFECTED AREA ONCE DAILY 30 g 01/06/20 24 Active fluticasone propionate (FLONASE) 50 mcg/actuation nasal sprayIndications: Post-nasal drip Administer 2 sprays into each nostril daily 3 each 4 04/11/20 24 Active escitalopram (LEXAPRO) 10 mg tablet Take 1 tablet (10 mg total) by mouth daily 04/25/20 24 Active blood glucose diagnostic (glucose blood) stripIndications: Diabetes Mellitus,New onset Use strips TID prn to check blood sugar 300 each 3 11/23/19 25 Active OneTouch Delica Plus Lancet 33 gauge miscIndications:P rediabetes Use to monitor sugars TID. 300 each 5 11/23/19 25 Active levonorgestreL (LILETTA) 20.4 mcg/24 hr (8 yrs) 52 mg IUD by intrauterine route once Active pregabalin (LYRICA) 75 mg capsuleIndication s:Neuropathic Pain Take 1 capsule (75 mg total) by mouth 2 (two) times a day 60 capsule 5 12/18/19 25 025 Active cane deviceIndications :Chronic left-sided low back pain with left-sided sciatica,At moderate risk for fall,Foraminal stenosis of lumbar region,Lumbar radiculopathy 1 quad cane with offset handle 1 each 12/26/19 25 Active compression socks, x-large miscIndications:L eg fatigue,Chronic left-sided low back pain with left-sided sciatica,Foramina l stenosis of lumbar region 1 Units daily 3 each 3 12/26/19 25 Active chlorhexidine (HIBICLENS) 4 % external liquidIndications :Skin Disinfection Apply topically daily as needed for wound care 946 mL 2 12/26/19 25 Active TENS unit and electrodes combo packIndications:C hronic left-sided low back pain with left-sided sciatica,Foramina l stenosis of lumbar region,Lumbar radiculopathy 1 TENS unit for chronic back pain- unit + 4 electrodes. 1 each 12/26/19 25 Active blood pressure test kit-large kitIndications:El evated blood pressure reading 1 Units daily Use to monitor blood pressure daily 1 kit 12/26/19 25 Active omeprazole (PriLOSEC) 20 mg capsuleIndication s:Gastroesophagea l reflux disease, unspecified whether esophagitis present Take 1 capsule (20 mg total) by mouth daily 90 capsule 3 02/08/20 25 Active ergocalciferol (VITAMIN D) 50,000 unit capsuleIndication s:Vitamin D deficiency Take 1 capsule (50,000 Units total) by mouth every 14 (fourteen) days 45 capsule 1 02/08/20 25 Active famotidine (PEPCID) 20 mg tabletIndications :Gastroesophageal reflux disease, unspecified whether esophagitis present Take 1 tablet (20 mg total) by mouth 2 (two) times a day as needed for heartburn or indigestion 180 tablet 1 02/08/20 25 Active Additional Information Patient taking differently:20 mg oralNightly, Reported on 04/30/2025 spironolactone (ALDACTONE) 50 mg tabletIndications :Hirsutism Take 1 tablet by mouth once daily 100 tablet 1 02/16/20 25 Active Additional Information Patient taking differently: 75 mgoral Daily, Reported on 04/30/2025 metFORMIN XR (GLUCOPHAGE XR) 500 mg 24 hr tabletIndications :Insulin resistance Take 1 tablet by mouth once daily with breakfast 90 tablet 03/08/20 25 Active polyethylene glycol (MIRALAX) 17 gram/dose bulk powderIndications :Chronic idiopathic constipation Take 17 g by mouth daily 510 g 3 03/20/20 25 Active docusate sodium (COLACE) 100 mg capsuleIndication s:constipation Take 1 capsule (100 mg total) by mouth 2 (two) times a day 180 capsule 1 03/20/20 25 Active clindamycin (CLINDAGEL) 1 % gel Apply topically 2 (two) times a day as needed (skin infections/cyst s) 60 g 04/09/20 25 Active Caplyta 10.5 mg capsule Take 10 mg by mouth nightly 04/06/20 25 Active lamoTRIgine (LaMICtal) 150 mg tablet Take 1 tablet (150 mg total) by mouth nightly Active ibuprofen (ADVIL,MOTRIN) 800 mg tablet Take 1 tablet (800 mg total) by mouth every 8 (eight) hours as needed for pain 90 tablet 04/20/20 25 Active docusate sodium (DOK) 100 mg tabletIndications :constipation Take 1 tablet (100 mg total) by mouth 2 (two) times a day for 10 days 20 tablet 04/20/20 25 Active oxyCODONE (ROXICODONE) 5 mg immediate release tabletIndications :Pain Take 1 tablet (5 mg total) by mouth every 4 (four) hours as needed for pain 10 tablet 04/20/20 25 Active blood-glucose meter miscIndications:P rediabetes Use daily or as directed for monitoring of diabetes. 1 each 04/30/20 25 Active OneTouch Verio Flex meter miscIndications:P rediabetes Inject 1 m under the skin daily as needed (prediabetes) 1 each 04/30/20 25 Active clindamycin (CLEOCIN T) 1 % gel APPLY TOPICALLY TO AFFECTED AREA TWICE DAILY NEEDED(SKIN INFECTIONS/CYST S) 04/10/20 25 Active ondansetron ODT (ZOFRAN-ODT) 4 mg disintegrating tabletIndications :Prevention of Post-Operative Nausea and Vomiting Take 1 tablet (4 mg total) by mouth every 6 (six) hours as needed for nausea or vomiting 2 tablet 05/10/20 25 Active bisacodyl EC (DULCOLAX EC) 5 mg EC tabletIndications :constipation Take 2 tablets (10 mg total) by mouth daily 4 tablet 05/10/20 25 Active OneTouch Verio Flex meter misc as directed 11/19/20 22 025 Discontinu ed(Reorder ) polyethylene glycol (GoLYTELY) 236-22.74-6.74 -5.86 gram solutionIndicatio ns:Abdominal pain Take 4,000 mL by mouth once for 1 dose 4000 mL 05/10/20 25 025 Active Problems Problem Noted Date Diagnosed Date Abdominal pain 05/10/2025 Foraminal stenosis of lumbar region 12/05/2024 Assessment & Plan (03/20/2025 1:09 PM CDT): Assessment & Plan (12/05/2024 3:24 PM ROOFER METAL): Continue to follow-up with neurosurgery and pain management Temporary parking permit completed and scanned into chart Will work on weight loss with medical nutrition therapy Herniated lumbar intervertebral disc 12/05/2024 Assessment & Plan (12/05/2024 3:24 PM ROOFER METAL): Continue to follow-up with neurosurgery and pain management Temporary parking permit completed and scanned into chart Will work on weight loss with medical nutrition therapy 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 Use a topical antibiotic ointment on affected area until healed. If currently using bar soap-discard the current bar; while having an active sore use liquid soap or Hibiclens. Once sore is healed use antibacterial soap to help prevent future infections. Discussed lots of handwashing, and bleaching shower or tub after each use while having active sores. Discussed laundering patients linens and clothes separate from other family members while having active sores. Try not to itch, rub, squeeze or pick. Watch for worsening symptoms i.e. sweats, chills, itching, burning sensation, pain, swelling, drainage, worsening redness and/or streaking. RTC prn or if new symptoms arise. Patient verbalizes understanding, all questions have been answered. Okay to follow-up with dermatology as this is a chronic condition still has frequent exacerbations Bipolar II disorder 09/12/2024 Overview (09/12/2024): Bipolar 2 disorder Chronic gastritis 09/12/2024 Overview (09/12/2024): Chronic gastritis Allergic rhinitis 09/12/2024 Overview (09/12/2024): Allergic rhinitis Hypothyroidism 09/12/2024 Overview (09/12/2024): Hypothyroidism Assessment & Plan (12/05/2024 3:23 PM ROOFER METAL): Would benefit for medical nutrition therapy, ordered Vasomotor rhinitis 09/12/2024 Overview (09/12/2024): 05-29-2013- VASAP Allergy Skin Testing- Standard Inhalants and Foods. Non- reactive. Heat intolerance 08/17/2024 Assessment & Plan (08/17/2024 3:31 PM CDT): New issue, likely side effects of antipsychotics and SSRI Will check labs to rule out endocrine cause Chronic right shoulder pain 08/17/2024 Assessment & Plan (08/17/2024 3:32 PM CDT): Due to some mild osteoarthritis She is doing better with rest, sleeping adjustment, occasional NSAIDs We discussed action and side effects of corticosteroid injection she declined today Carpal tunnel syndrome of right wrist 04/21/2024 Carpal tunnel syndrome of left wrist 12/30/2023 Attention deficit hyperactiv ity disorder (ADHD), predominantly inattentive type 12/22/2023 Assessment & Plan (12/22/2023 4:27 PM ROOFER METAL): Doing well with Vyvanse, continue Annual physical exam 12/22/2023 Assessment & Plan (12/22/2023 4:28 PM ROOFER METAL): Exercise 5 days a week, 30 mins per day recommended. Eat a heart healthy diet consisting of good, healthy protein (eggs, nuts, peanut butter, chicken, fish, turkey, less pork/beef), lots of vegetables, less carbohydrates and less sugar. Annual physical recommended. Pap- NIL neg HPV 01/2023 Vaccines recommended at health department patient declined Nicotine use disorder 12/22/2023 Assessment & Plan (08/17/2024 3:30 PM CDT): Uncontrolled She is doing poorly with the generic patches. Requested Branded because he stay on more than 3 hours and also seem to work better Adding gum for breakthrough cravings She is working with Psychiatry to adjust her medications to help with smoking cessation I am enrolling her in his state wide program, message sent to Nurse Assessment & Plan (12/22/2023 4:29 PM ROOFER METAL): Smoking cessation discussed Carpal tunnel syndrome, bilateral 11/03/2023 Assessment & Plan (12/22/2023 4:27 PM ROOFER METAL): Uncontrolled, chronic. Upcoming appointment with hand surgery Assessment & Plan (11/03/2023 3:37 PM ROOFER METAL): Rest, Ice baths 3 times a day Unable to use NSAIDs right now due to epigastric pain but try Voltaren gel Can use tylenol for breakthrough pain Home exercises discussed and demonstrated Cock up splint at night time if helpful Avoid wrist flexion Hand surgery consult due to severity and nerve conduction studies ordered Pure hypercholesterolemia 11/03/2023 Assessment & Plan (12/05/2024 3:23 PM ROOFER METAL): Would benefit for medical nutrition therapy, ordered Assessment & Plan (12/22/2023 4:27 PM ROOFER METAL): Labs were better, continue healthy eating patterns Assessment & Plan (11/03/2023 3:37 PM ROOFER METAL): Low-fat diet, check labs Insulin resistance 11/03/2023 Assessment & Plan (12/05/2024 3:23 PM ROOFER METAL): Would benefit for medical nutrition therapy, ordered Assessment & Plan (12/22/2023 4:27 PM ROOFER METAL): Continue metformin, stable Assessment & Plan (11/03/2023 3:38 PM ROOFER METAL): Low carb diet recommended, check labs Spondylosis of lumbar spine 09/08/2023 Assessment & Plan (12/05/2024 3:23 PM ROOFER METAL): Continue to follow-up with neurosurgery and pain management Temporary parking permit completed and scanned into chart Will work on weight loss with medical nutrition therapy Weight gain 06/10/2023 Assessment & Plan (08/17/2024 3:31 PM CDT): Checking labs to ensure there was no endo or metabolic reason for weight gain Agree with going back on Concerta as this will help with weight management and appetite control Class 3 severe obesity due t o excess calories without serious comorbidity with body mass index (BMI) of 50.0 to 59.9 in adult 06/10/2023 Assessment & Plan (12/05/2024 3:22 PM ROOFER METAL): BMI is trending up. Would benefit for medical nutrition therapy, ordered Assessment & Plan (08/17/2024 3:29 PM CDT): BMI is up Patient would like to get weight loss surgery but needs to quit smoking Checking labs to ensure there was no endocrine or metabolic issue contributing to her weight gain We discussed that some of the psychiatric meds cause weight gain Assessment & Plan (12/22/2023 4:26 PM ROOFER METAL): BMI has been stable. We briefly discussed weight loss surgery and patient is apprehensive regarding this due to history of eating disorder and possibility of future Currently on Vyvanse I will continue Obstructive sleep apnea 03/30/2023 Assessment & Plan (08/03/2024 2:14 PM CDT): Patient continue to wear CPAP at 14 cm water pressure while sleeping. Her DME is [facility]. Assessment & Plan (02/01/2024 2:53 PM CDT): Due to the patient stating the pressure is too high, I have decreased the pressure to 16 cm of water pressure. I did encourage the patient to wear the CPAP machine. The patient is going to reach out to her psychiatrist in hopes of helping with the anxiety. DME is [facility] I asked the patient to call into the office if the pressure needs to be readjusted Assessment & Plan (12/22/2023 4:26 PM ROOFER METAL): Uncontrolled due to difficulties with facemask, has upcoming appointment Assessment & Plan (08/03/2023 1:54 PM CDT): Due to the patient having difficulty keeping a mask seal and dry mouth I would decrease the patient's CPAP pressure to 18 cm water pressure while sleeping. I have also provided the patient with a sample fullface mask. The patient will call back in if she does not like the change in pressure. Assessment & Plan (03/30/2023 1:28 PM CDT): Patient continue to wear her CPAP at 20 cm water pressure while sleeping. Her DME is [facility]. [id number] 03/11/2023 Assessment & Plan (12/22/2023 4:26 PM ROOFER METAL): resolving Lumbar radiculopathy 01/19/2023 Assessment & Plan (12/05/2024 3:23 PM ROOFER METAL): Continue to follow-up with neurosurgery and pain management Temporary parking permit completed and scanned into chart Will work on weight loss with medical nutrition therapy Hirsutism 10/27/2022 Assessment & Plan (08/17/2024 3:28 PM CDT): Uncontrolled chronic problem Increase spironolactone to 50 mg daily Follow-up in 3-6 months may need to increase that time Assessment & Plan (12/22/2023 4:23 PM ROOFER METAL): Controlled chronic condition continue spironolactone Assessment & Plan (11/03/2023 3:38 PM ROOFER METAL): Check labs, consider increasing spironolactone to help with abnormal hair growth Prediabetes 10/27/2022 Assessment & Plan (12/05/2024 3:22 PM ROOFER METAL): Would benefit for medical nutrition therapy, ordered Assessment & Plan (08/17/2024 3:29 PM CDT): Recheck A1c Continue metformin Low carb diet Assessment & Plan (12/22/2023 4:23 PM ROOFER METAL): Controlled chronic condition continue metformin Assessment & Plan (11/03/2023 3:35 PM ROOFER METAL): I highly encouraged her to follow a low carb diet. I explained that this will help with her carpal tunnel pain and inflammation in her wrists Bipolar disorder, in full re mission, most recent episode mixed 10/27/2022 Assessment & Plan (12/22/2023 4:24 PM ROOFER METAL): Controlled chronic condition continue a psychiatry care and Vidal Ardon Vyvanse Gastroesophageal reflux disease 10/27/2022 Assessment & Plan (03/20/2025 1:09 PM CDT): Assessment & Plan (02/07/2025 3:22 PM CDT): Orders: omeprazole (PriLOSEC) 20 mg capsule; Take 1 capsule (20 mg total) by mouth daily famotidine (PEPCID) 20 mg tablet; Take 1 tablet (20 mg total) by mouth 2 (two) times a day as needed for heartburn or indigestion Assessment & Plan (12/22/2023 4:24 PM ROOFER METAL): Stable on Prilosec. Long-term use of Prilosec discussed with patient. She wishes to remain on it. Briefly discussed weight loss surgery Assessment & Plan (11/03/2023 3:36 PM ROOFER METAL): She is experiencing some abdominal pain secondary to NSAID use. She currently denies black tarry stools. I recommended doubling her Prilosec for a week so 40 mg morning and night. Avoid NSAIDs for now. Chronic post-traumatic stress disorder (PTSD) Assessment & Plan (12/22/2023 4:25 PM ROOFER METAL): Controlled in chronic condition, managed by Psychiatry continue prescription medication Vitamin D deficiency 10/27/2022 Overview (10/27/2022): Continue with vitamin-D supplementation Assessment & Plan (02/07/2025 3:22 PM CDT): Orders: ergocalciferol (VITAMIN D) 50,000 unit capsule; Take 1 capsule (50,000 Units total) by mouth every 14 (fourteen) days Assessment & Plan (12/22/2023 4:25 PM ROOFER METAL): Continue with vitamin-D supplementation, stable Assessment & Plan (11/03/2023 3:36 PM ROOFER METAL): Check labs Low serum vitamin B12 10/27/2022 Overview (10/27/2022): Continue B12 supplementation, check labs Assessment & Plan (12/22/2023 4:25 PM ROOFER METAL): Continue with B12 supplementation, at goal Assessment & Plan (11/03/2023 3:36 PM ROOFER METAL): Check labs Chronic left-sided low back pain with left-sided sciatica 10/27/2022 Assessment & Plan (12/05/2024 3:22 PM ROOFER METAL): Continue to follow-up with neurosurgery and pain management Temporary parking permit completed and scanned into chart Will work on weight loss with medical nutrition therapy Assessment & Plan (12/22/2023 4:26 PM ROOFER METAL): Remains uncontrolled but chronic. Working with pain management at this time. Improving Resolved Problems Problem Noted Date Diagnosed Date Resolved Date Sinus congestion 08/03/2024 08/17/2024 Assessment & Plan (08/03/2024 2:14 PM CDT): I have ordered a CT scan of the sinuses and referred the patient to ENT. Upper respiratory tract infection 06/22/2023 12/22/2023 Assessment & Plan (06/22/2023 12:53 PM CDT): VSS, NAD, lungs CTAB, throat exam unremarkable Symptom duration 3-4 days Rapid strep neg. Throat culture pending Rapid covid, flu negative. PCR pending Supportive care for now and monitor symptoms Tylenol or Ibuprofen for aches, pains. Take per package directions Warm salt gargles, honey, tea Antihistamines like Claritin or Zyrtec as needed for drainage. Take per package directions Delsym (cough suppressant) and Mucinex (cough expectorant) as needed for coughing. Follow package directions Frequent cough drops and lozenges Increase sugar free fluids, especially decaffeinated ones Sleep with head of bed raised to promote drainage Flonase or nasal saline spray, 2 sprays each nostril daily Discussed the life expectancy of a viral illness is 7 to 10 days. Discussed supportive measures including increase fluid intake, rest, use of Tylenol/Motrin for discomfort and/or fevers. Recommend using drug-free nasal saline every 3-4 hours with frequent nose blowing to alleviate nasal congestion and honey +/- warm tea to alleviate cough/sore throat. Instructed to use good handwashing within the household. Patient understands and agrees with treatment plan. Call or return to clinic with any questions or concerns. Patient verbalizes understanding and agreeable to plan. Avoid spreading the virus by remaining at home and away from others until you are fever-free (temperature below 100) for 24 hours. Good handwashing and covering your mouth when coughing are also important. If you are not improving or worsening in the next 5-7 days you must RETURN to the clinic, go to your PCP, or Urgent Care/ER to be SEEN and reevaluated. No further prescriptions or refills will be given by phone without another evaluation. If you develop a high fever 103+, neck stiffness, trouble breathing, chest pain, or other life threatening symptoms GO TO THE ER IMMEDIATELY. Sacroiliac joint dysfunction of both sides 01/19/2023 12/22/2023 Snoring 11/02/2022 03/30/2023 Assessment & Plan (11/02/2022 11:31 AM ROOFER METAL): The patient presents with snoring, witnessed apneas and daytime hypersomnia. I have recommended proceeding with a nocturnal polysomnogram with a split night protocol if necessary and no MSLT. She will follow-up here in 3 months. Pilonidal cyst 10/27/2022 12/22/2023 Overview (10/27/2022): to surgery for excision Suspected sleep apnea 10/27/20222022 Overview (10/27/2022): Sleep study indicated History of suicidal ideation 10/27/2022 12/22/2023 Overview (10/27/2022): to psychiatry Cellulitis of female breast 10/27/2022 12/22/2023 Immunizations Immunization Administration Dates Next Due Influenza, Trivalent, Cell Culture-based MDCK, Preservative Free, Antibiotic Free, Intramuscular 01/08/2025 Influenza, Unspecified 08/22/2024(Deferr ed: Patient decision),08/22/2024(Deferred: Patient decision),08/17/2024(Deferred: Patient Refused),07/23/2024(Deferred: Patient decision),12/22/2023(Deferred: Patient decision),11/03/2023(Deferred: Patient decision),09/23/2023(Deferred: Parental decision),09/23/2023(Deferred: Patient decision),08/22/2023(Deferred: Patient decision),08/22/2023(Deferred: Patient decision),08/22/2023(Deferred: Patient Refused),11/04/2022(Deferred: Patient decision),10/27/2022(Deferred: Patient Refused),09/23/2022(Deferred: Patient decision),09/23/2022(Deferred: Patient decision),09/23/2022(Deferred: Patient decision),08/22/2022(Deferred: Patient Refused),08/22/2022(Deferred: Patient decision),08/22/2022(Deferred: Patient decision),08/22/2022(Deferred: Patient decision),12/24/2021(Deferred: Patient Refused),08/22/2021(Deferred: Patient decision),08/22/2021(Deferred: Patient decision),08/22/2021(Deferred: Patient decision),08/22/2021(Deferred: Patient decision),08/22/2021(Deferred: Patient Refused),11/22/2020(Deferred: Patient Refused) Tdap 06/15/2024,03/07/2014 Varicella 03/07/2014 Social History Tobacco Use Types Packs/Day Years Used Date Smoking Tobacco: Every Day Cigarettes Vaping Started: 11/22 Smokeless Tobacco: Never Tobacco Cessation:Ready to Q uit: Not Asked; Counseling Given: Not Answered Comments:Looking at options for quitting ao i can do ao successfully this time. AUDIT-C Answer Date Recorded Q1: How often do you have a drink containing alcohol? Never 04/30/2025 Q2: How many drinks containi ng alcohol do you have on a typical day when you are drinking? Patient does not drink Q3: How often do you have si x or more drinks on one occasion? Never 04/30/2025 PHQ-2 Answer Date Recorded PHQ-2 Total Score [...] making you feel afraid or unsafe? Denies 05/10/2025 Comments No Sex and Gender Information Value Date Recorded Sex Assigned at Not on file Legal Sex Female 3:16 PM CDT Gender Identity Female 10/26/2022 10:54 AM ROOFER METAL Sexual Orientation Bisexual 10/26/2022 10 :54 AM ROOFER METAL Last Filed Vital Signs Vital Sign Reading Time Taken Comments Blood Pressure 104/56 05/10/2025 3:05 PM CDT Pulse 69 05/10/2025 3:05 PM CDT Temperature 37.2 C (98.9 F) 05/10/2025 12:03 PM CDT Respiratory Rate 18 05/10/2025 3:05 PM CDT Oxygen Saturation 96% 05/10/2025 3:05 PM CDT Inhaled Oxygen Concentration - - Weight 153.2 kg (337 lb 11.9 oz) 2024 12:03 PM CDT Height 162.6 cm (5' 4) 05/10/2025 12:0 3 PM CDT Body Mass Index 57.97 05/10/2025 12:03 PM CDT Plan of Treatment Upcoming Encounters Date Type Department Care Team (Latest Contact Info) Description 05/31/2025 9:30 AM CDT Hospital Encounter [facility] GI [facility] [address] [place] [id number] Ramirez Mccarty MD [facility] [facility] [address] [place] [address] 05/31/2025 9:30 AM CDT - 05/31/2025 10:00 AM CDT Surgery [facility] [address] [place] [address] Ramirez Mccarty MD [address] [place] [id number] ESOPHAGOGASTRODUODENOSCOPY Scheduled Procedures Name Priority Associated Diagnoses Date/Ti de ESOPHAGOGASTRODUODENOSCOPY Abdominal pain 05/31/2025 9:30 AM CDT COLONOSCOPY Abdominal pain 05/31/2025 9:30 AM CDT Goals Goal Patient Goal Type Associated Problems [...] lifestyle strategies and compensatory methods as needed Procedures Procedure Name Priority Date/Time Associated Diagnosis Comments CT ABDOMEN PELVIS W CONTRAST ED 05/10/2025 1:48 PM CDT POCT HCG, URINE Routine 05/10/2025 1:03 PM CDT URINALYSIS, MICROSCOPIC ONLY STAT 05/10/2025 12:21 PM CDT URINALYSIS AND REFLEX TO MICROSCOPIC AND CULTURE STAT 05/10/2025 12:21 PM CDT EGFR STAT 05/10/2025 12:13 PM CDT DIFFERENTIAL AUTO STAT 05/10/2025 12:13 PM CDT LIPASE STAT 05/10/2025 12:13 PM CDT COMPREHENSIVE METABOLIC PANEL STAT 05/10/2025 12:13 PM CDT CBC WITH AUTO DIFFERENTIAL STAT 05/10/2025 12:13 PM CDT POCT GLUCOSE DEVICE Routine 05/10/2025 12:03 PM CDT POCT GLUCOSE DEVICE Routine 04/20/2025 10:36 AM CDT IA AN PROCEDURE PLACEHOLDER Routine 04/20/2025 9:56 AM CDT IA AN ELECTIVE ENDOTRACHEAL AIRWAY Routine 04/20/2025 9:56 AM CDT ANAL FISTULOTOMY 04/20/2025 9:37 AM CDT PERIANAL FISTULA POC BLOOD GAS AND CHEMISTRIES, VENOUS Routine 04/20/2025 8:22 AM CDT POCT GLUCOSE DEVICE Routine 04/20/2025 7:40 AM CDT POCT HCG, URINE Routine 04/20/2025 7:30 AM CDT ECG 12-LEAD Routine 04/17/2025 2:02 PM CDT Pre-op testing XR ABDOMEN AP 1 VIEW Schedule Routine, Read Routine (OP Routine) 04/11/2025 3:27 PM CDT Chronic idiopathic constipation LUQ pain EGFR Routine 03/20/2025 1:19 PM CDT Prediabetes Pure hypercholesterolemia BASIC METABOLIC PANEL Routine 03/20/2025 1:19 PM CDT Prediabetes Pure hypercholesterolemia HEMOGLOBIN A1C Routine 03/20/2025 1:19 PM CDT Prediabetes Pure hypercholesterolemia HM PAP SMEAR WITH HPV Routine 03/04/2023 from Last 3 Months or Most Recently Relevant to Health Maintenance Results * CT Abdomen Pelvis W Contrast (05/10/2025 1:48 PM CDT) Anatomical Region Laterality Modality Body N/A Computed Tomogra phy 05/10/2025 2:24 PM CDT Narrative 05/10/2025 2:28 PM CDT EXAM DESCRIPTION: CT ABDOMEN PELVIS W CONTRAST REASON FOR STUDY: Abdominal pain, acute, nonlocalized c/o left upper quad abdominal pain and nausea. Reports PCP sent in for possible obstruction TECHNIQUE: CT scan of the abdomen and pelvis performed with intravenous and without oral contrast using helical scanning technique with dynamic intravenous contrast injection. Reconstructed coronal and sagittal MPR images reviewed. All images stored on PACS. Automated exposure control was used as a dose optimization technique for this examination. CONTRAST TYPE/DOSE: 100mL of IOVERSOL 350 MG IODINE/ML INTRAVENOUS SYRINGE injected via intravenous COMPARISON: None FINDINGS: LOWER CHEST: No significant pulmonary abnormalities. No effusion. LIVER: Normal size. No identified cystic or solid masses. GALLBLADDER: No stones identified. No wall thickening or inflammatory changes. BILE DUCTS: No intrahepatic or extrahepatic ductal dilatation. SPLEEN: Normal size. No focal lesions. PANCREAS: No identified cystic or solid masses. No significant calcifications. No adjacent inflammation or peripancreatic fluid collections. Pancreatic duct not dilated. ADRENALS: Normal. KIDNEYS/URINARY TRACT: No significant perinephric stranding. No identified significant cystic or solid masses. No visualized stones. No hydronephrosis or hydroureter. Symmetric enhancement. Urinary bladder is unremarkable. GI: The distal esophagus and stomach are unremarkable. No dilated bowel loops. No obvious wall thickening. Normal appendix. No significant diverticular disease. PERITONEUM: No ascites or free air. RETROPERITONEUM: No mass or adenopathy. REPRODUCTIVE: An IUD is present. No adnexal mass. VASCULATURE: No abdominal aortic aneurysm. MUSCULOSKELETAL: No significant abnormality. OTHER: No other abnormality. IMPRESSION: No acute findings of the abdomen or pelvis. THIS IS AN ELECTRONICALLY VERIFIED FINAL REPORT 05/10/2025 2:28 PM - Electronically signed by Phani Acosta M.D. KR: JAVED Report ID: [id number] Reading Location: [place] [address] Procedure Note Phani Acosta MD - 05/10/2025 EXAM DESCRIPTION: CT ABDOMEN PELVIS W CONTRAST REASON FOR STUDY: Abdominal pain, acute, nonlocalized c/o left upper quad abdominal pain and nausea. Reports PCP sent in for possible obstruction TECHNIQUE: CT scan of the abdomen and pelvis performed with intravenousand without oral contrast using helical scanning technique with dynamic intravenous contrast injection. Reconstructed coronal and sagittal MPRimages reviewed. All images stored on PACS. Automated exposure control was usedas a dose optimization technique for this examination. CONTRAST TYPE/DOSE: 100mL of IOVERSOL 350 MG IODINE/ML INTRAVENOUSSYRINGE injected via intravenous COMPARISON: None FINDINGS: LOWER CHEST: No significant pulmonary abnormalities. Noeffusion. LIVER: Normal size. No identified cystic or solid masses. GALLBLADDER: No stones identified. No wall thickening or inflammatory changes. BILE DUCTS: No intrahepatic or extrahepatic ductal dilatation. SPLEEN: Normal size. No focal lesions. PANCREAS: No identified cystic or solid masses. No significant calcifications. No adjacent inflammation or peripancreatic fluidcollections. Pancreatic duct not dilated. ADRENALS: Normal. KIDNEYS/URINARY TRACT: No significant perinephric stranding. Noidentified significant cystic or solid masses. No visualized stones. Nohydronephrosis or hydroureter. Symmetric enhancement. Urinary bladder is unremarkable. GI: The distal esophagus and stomach are unremarkable. No dilated bowel loops. No obvious wall thickening. Normal appendix. No significant diverticular disease. PERITONEUM: No ascites or free air. RETROPERITONEUM: No mass or adenopathy. REPRODUCTIVE: An IUD is present. No adnexal mass. VASCULATURE: No abdominal aortic aneurysm. MUSCULOSKELETAL: No significant abnormality. OTHER: No other abnormality. IMPRESSION: No acute findings of the abdomen or pelvis. THIS IS AN ELECTRONICALLY VERIFIED FINAL REPORT 05/10/2025 2:28 PM - Electronically signed by Phani Acosta M.D. KR: JAVED Report ID: [id number] Reading Location: [place] [address] PROCEDURES Final Re sult * POCT hCG, urine (05/10/2025 1:03 PM CDT) HCG, ur, POC Negative Negative Lot Number [id number] QC Backgroud Clear Acceptable QC Control Line Acceptable Urine 05/10/2025 1:03 PM CDT Alcides Lu DO POINT OF CARE TEST ORDERABL ES Final Result * (ABNORMAL) Urinalysis reflex to microscopic and culture Urine (05/10/2025 12:21 PM CDT) Color, ur Yellow Yellow Comment:Testing performed by : [address] [address] Clarity, ur Clear Clear GLENNY Comment:Testing performed by : [address] [address] Specific gravity, ur 1.015 1.003 - 1.030 GLENNY Comment:Testing performed by : [address] [address] pH, urine 5.5 GLENNY Comment: Interpretive Data U rine pH is affected by diet, medications, systemic acid-base disturbances, and renal tubular function. pH may affect urinary stone formation. For example, urine pH below 6.0 may help reduce the tendency for calcium phosphate stones and pH greater than 6.0 may reduce the tendency for uric acid stone formation. Source: [facility] Current Interpretive Data was last revised on 2017 Testing performed by: [facility], [address] [place] [address]., [address] Protein, ur ql Negative Negative GLENNY Comment:Testing performed by : [address] [address] Glucose, ur ql Negative Negative GLENNY Comment:Testing performed by : [address], [place]., [address] Ketones, ur Negative Negative GLENNY Comment:Testing performed by : [address] [address] Bilirubin, ur Negative Negative GLENNY Comment:Testing performed by : [address], [place]., [address] Blood, ur Trace(A) Negative GLENNY Comment:Testing performed by : [address] [address] Urobilinogen, ur <2.0 <2.0 mg/dL GLENNY Comment:Testing performed by : [address] [address] Nitrite, ur Negative Negative GLENNY Comment:Testing performed by : [address] [address] Leukocyte esterase, ur Negative Negative GLENNY Comment:Testing performed by : [address] [address] UA reflex comment Reflex to microscopic UA will be performed. GLENNY Comment:Testing performed by : [address] [address] Urine 05/10/2025 12:2 1 PM CDT 05/10/2025 12:25 PM CDT us Alcides Lu DO LAB MICROBIOLOGY - GENERAL ORDERABLES Final Result GLENNY GARCIA [address] [facility] Department [place] [address] * (ABNORMAL) Urinalysis, microscopic only (05/10/2025 12:21 PM CDT) Pathologist [facility] WBC, ur 0-5 0 - 5 /HPF Comment:Testing performed by : [facility], [address] [place] [address]., [address] RBC, ur 3-5(A) 0 - 2 /HPF GLENNY Comment:Testing performed by : [address] [address] Epithelial cells, squamous, ur 21-50(A) 0 - 5 /HPF GLENNY Comment:Testing performed by : [address] [address] Mucous, ur Present(A) GLENNY Comment:Testing performed by : [address] [address] Culture Reflex Comment Reflex conditions for urine culture (WBC >10) not met. GLENNY Comment:Testing performed by : [address] [address] Urine 05/10/2025 12:2 1 PM CDT 05/10/2025 12:25 PM CDT Alcides Lu DO LAB URINE ORDERABLES Final Result GLENNY [facility] Department [place] [address] * eGFR (05/10/2025 12:13 PM CDT) Pathologist [facility] eGFR >90 >=60 mL/min/1. 73 m2 Comment: Interpretive Data Reference Interval Normal >/= 90 mL/min/1.73m2 Mildly decreased* 60 - 89 mL/min/1.73m2 Mildly to moderately decreased 45 - 59 mL/min/1.73m2 Moderately to severely decreased 30 - 44 mL/min/1.73m2 Severely decreased 15 - 29 mL/min/1.73m2 Kidney Failure < 15 mL/min/1.73m2 *Relative to young adult level Estimated glomerular filtration rate is determined by the 2020 CKD-EPI equation recommended by the National Kidney Foundation (A Unifying Approach to GFR Estimation: Recommendations of the NKF-ASK Task Force on Reassessing the Inclusion of Race in Diagnosing Kidney Disease, JASN 202). The CKD-EPI equation should not be used for patients with unstable renal function and has not been validated in children and those over 70. Current interpretive data was last reviewed 2021. Testing performed by: [address] [address] Blood 05/10/2025 12:1 3 PM CDT 05/10/2025 12:16 PM CDT us Alcides Lu DO LAB BLOOD ORDERABLES Final Result GLENNY [facility] Department [place] [address] * (ABNORMAL) Differential, auto (05/10/2025 12:13 PM CDT) Neutrophil abs 7.29(H) 1.50 - 6.50 K/cumm Comment:Testing performed by : [address] [address] Imm gran abs 0.05 0.00 - 0.10 K/cumm GLENNY Comment:Testing performed by : [address] [address] Lymphocyte abs 2.61 0.80 - 3.30 K/cumm GLENNY Comment:Testing performed by : [address] [address] Monocyte abs 0.47 0.20 - 0.80 K/cumm GLENNY Comment:Testing performed by : [address] [address] Eosinophil abs 0.08 0.00 - 0.50 K/cumm GLENNY Comment:Testing performed by : [address] [address] Basophil abs 0.06 0.00 - 0.10 K/cumm GLENNY Comment:Testing performed by : [address] [address] Neutrophil pct 68.9 % [facility] Comment: Interpretive Data Percent cell count reference ranges are not reported, since discordance with absolute values may lead to misinterpretation of CBC data. Current Interpretive Data was last revised on 2018. Testing performed by: [address] [address] Imm gran pct 0.5 % [facility] Comment: Interpretive Data Percent cell count reference ranges are not reported, since discordance with absolute values may lead to misinterpretation of CBC data. Current Interpretive Data was last revised on 2018. Testing performed by: [address] [address] Lymphocyte pct 24.7 % [facility] Comment: Interpretive Data Percent cell count reference ranges are not reported, since discordance with absolute values may lead to misinterpretation of CBC data. Current Interpretive Data was last revised on 2018. Testing performed by: [address] [address] Monocyte pct 4.5 % [facility] Comment: Interpretive Data Percent cell count reference ranges are not reported, since discordance with absolute values may lead to misinterpretation of CBC data. Current Interpretive Data was last revised on 2018. Testing performed by: [address] [address] Eosinophil pct 0.8 % [facility] Comment: Interpretive Data Percent cell count reference ranges are not reported, since discordance with absolute values may lead to misinterpretation of CBC data. Current Interpretive Data was last revised on 2018. Testing performed by: [address] [address] Basophil pct 0.6 % [facility] Comment: Interpretive Data Percent cell count reference ranges are not reported, since discordance with absolute values may lead to misinterpretation of CBC data. Current Interpretive Data was last revised on 2018. Testing performed by: [address] [address] Blood 05/10/2025 12:1 3 PM CDT 05/10/2025 12:15 PM CDT Alcides Lu DO LAB BLOOD ORDERABLES Final Result [facility] [address] [facility] Department [place] [address] * (ABNORMAL) CBC with auto differential (05/10/2025 12:13 PM CDT) [facility] Signature WBC 10.56(H) 3.80 - 9.90 K/cumm Comment:Testing performed by : [address] [address] Hgb 11.4(L) 11.9 - 15.5 g/dL GLENNY Comment:Testing performed by : [address] [address] Hct 34.3(L) 35.6 - 45.5 % GLENNY Comment:Testing performed by : [address] [address] Plt 297 150 - 400 K/cumm GLENNY Comment:Testing performed by : [address] [address] MPV 10.2 9.1 - 12.3 fL GLENNY Comment:Testing performed by : [address] [address] RBC 3.95 3.90 - 5.20 M/cumm GLENNY Comment:Testing performed by : [address] [address] MCV 86.8 81.3 - 96.4 fL GLENNY Comment:Testing performed by : [address] [address] MCH 28.9 27.1 - 33.3 pg GLENNY Comment:Testing performed by : [address] [address] MCHC 33.2 32.3 - 35.7 g/dL GLENNY Comment:Testing performed by : [address] [address] RDW CV 14.5 11.1 - 14.9 % GLENNY Comment:Testing performed by : [address], [address] RDW SD 46.0 35.7 - 48.1 fL GLENNY GARCIA Comment:Testing performed by : [address] [address] NRBC abs 0.00 0.00 - 0.01 K/cumm GLENNY GARCIA Comment:Testing performed by : [address] [address] Blood Venous blood specimen / Unknown 05/10/2025 12:13 PM CDT 05/10/2025 12:15 PM CDT Alcides Lu LAB BLOOD ORDERABLES Final Result Performing Organization Address City/[facility]/ZIP Co de Phone Number [address] [employer] [place] [address] * Lipase (05/10/2025 12:13 PM CDT) Pathologist [facility] Lipase 28 10 - 99 Units/L Comment:Testing performed by : [address] [address] Blood Venous blood specimen / Unknown 05/10/2025 12:13 PM CDT 05/10/2025 12:16 PM CDT Alcides Lu LAB BLOOD ORDERABLES Final Result Performing Organization Address City/[facility] Co de Phone Number [address] [address] * Comprehensive metabolic panel (05/10/2025 12:13 PM CDT) Sodium 137 135 - 145 mmol/L Comment:Testing performed by : [address] [address] Potassium, pl 4.2 3.3 - 4.9 mmol/L GLENNY GARCIA Comment:Testing performed by : [address] [address] Chloride 100 97 - 110 mmol/L GLENNY GARCIA Comment:Testing performed by : [address] [address] CO2 25 22 - 32 mmol/L GLENNY Comment:Testing performed by : [address] [address] Anion gap 12 2 - 15 mmol/L GLENNY Comment:Testing performed by : [address] [address] BUN 12 6 - 25 mg/dL GLENNY Comment:Testing performed by : [address] [address] Creatinine 0.80 0.60 - 1.10 mg/dL GLENNY Comment:Testing performed by : [address] [address] Glucose 151 70 - 199 mg/dL [facility] Comment: Interpretive Data Fasting glucose >/= 126 mg/dl is diagnostic for diabetes. Fasting is defined as no caloric intake for at least 8 hours. Fasting glucose between 100 mg/dl to 125 mg/dl is diagnostic of prediabetes. In a patient with classic symptoms of hyperglycemia or hyperglycemic crisis, a random glucose >/= 200 mg/dl is diagnostic for diabetes. In the absence of unequivocal hyperglycemia, results should be confirmed by repeat testing. The classification and Diagnosis of Diabetes Diabetes Care 202; 46: S19-S40. Current interpretive data was last revised 2022. Testing performed by: [address] [address] Calcium 9.2 8.5 - 10.3 mg/dL GLENNY Comment:Testing performed by : [address] [address] Bilirubin, total 0.2 0.1 - 1.2 mg/dL GLENNY Comment:Testing performed by : [address] [address] Protein, pl 6.8 6.5 - 8.5 g/dL GLENNY Comment:Testing performed by : [address] [address] Albumin 4.2 3.5 - 5.0 g/dL GLENNY Comment:Testing performed by : [address] [address] Alk phos 96 40 - 130 Units/L GLENNY Comment:Testing performed by : [address] [address] ALT 25 7 - 45 Units/L GLENNY GARCIA Comment:Testing performed by : [address] [address] AST 22 10 - 45 Units/L GLENNY Comment:Testing performed by : [address] [address] Blood 05/10/2025 12:1 3 PM CDT 05/10/2025 12:16 PM CDT Alcides Lu DO LAB BLOOD ORDERABLES Final Result Performing Organization Address [facility] Co de Phone Number [address] [employer] [place] [address] * POCT glucose (05/10/2025 12:03 PM CDT) Glucose, POC 178 70 - 199 mg/dL Comment:Testing performed by : [address], [address] Glucose comment 1 Use This Result GLENNY GARCIA Comment:Testing performed by : [address] [address] Blood 05/10/2025 12:0 3 PM CDT 05/10/2025 12:03 PM CDT Notinfile Unknown LAB POCT ORDERABLES - DEVICE F inal Result Performing Organization Address [facility] Co de Phone Number [address] [address] * POCT glucose (04/20/2025 10:36 AM CDT) Glucose, POC 116 70 - 199 mg/dL Comment:Testing performed by : [address] [address] Blood 04/20/2025 10:3 6 AM CDT 04/20/2025 10:36 AM CDT Chao Gibson MD LAB POCT ORDERABLES - DEVICE Final Result GLENNY GARCIA [address] [facility] Department [place] [address] * IA AN ELECTIVE ENDOTRACHEAL AIRWAY, IA AN PROCEDURE PLACEHOLDER (04/20/2025 9:56 AM CDT) Narrative Celia Peralta CRNA - 04/20/2025 9:56 AM CDT Celia Peralta CRNA 04/20/2025 9:57 AM Airway Patient location: OR Urgency: elective Date/time: 04/20/2025 9:44 AM Indications for airway management: anesthesia Difficult airway: no Staff: Supervising provider: Sylvester Brannon MD Placed by: FIRE INVESTIGATION MANAGER: Celia Peralta CRNA Emergent airway documentation: Risks and benefits discussed: yes Consent obtained: yes Consent given by: patient Airway prep: Preoxygenated: yes Mask difficulty assessment: 0 - not attempted Spontaneous ventilation during airway: absent Sedation level during airway: deep Final airway details: Final airway type: endotracheal airway Tube type: ETT ETT size: 7.0 mm Cuffed: yes Technique used for successful ETT placement: direct laryngoscopy Devices/Methods used in placement: cricoid pressure Insertion site: oral Blade type: Riya Blade size: 3 Cormack-Lehane (direct): grade I - full view of glottis Cuff volume: 3 mL Cuff inflated with: air ETT to teeth: 22 cm Placement verified by: auscultation and CO2 detection Airway secured with: silk tape Number of attempts: 1no Sylvester Brannon MD ANESTHESIA ORDERAB LES Final Result * (ABNORMAL) POC Blood Gas and Chemistries, Venous - (04/20/2025 8:22 AM CDT) [facility] pH,robert POC 7.35 7.32 - 7.43 Comment:Testing performed by : [address] [address] pCO2, robert POC 45 40 - 50 mmHg GLENNY GARCIA Comment:Testing performed by : [address] [address] pO2,robert POC 39 mmHg [facility] Comment: Interpretive Data No reference range established. Current interpretive data was last revised 2020. Testing performed by: [address] [address] HCO3, robert (Calc) POC 25 20 - 30 mmol/L [facility] Comment:Testing performed by : [address], [place]., [address] Base excess, robert POC -1 mmol/L [facility] Comment: Interpretive Data No reference range established. Current interpretive data was last revised 2020. Testing performed by: [address], [place]., [address] Hemoglobin, robert POC 11.6(L) 11.9 - 15.5 g/dL [facility] Comment:Testing performed by : [address], [place]., [address] Hematocrit, robert POC 34.0(L) 35.6 - 45.5 % [facility] Comment:Testing performed by : [address] [address] Sodium, robert POC 139 135 - 145 mmol/L [facility] Comment:Testing performed by : [address] [address] Potassium, robert POC 4.1 3.3 - 4.9 mmol/L [facility] Comment: Interpretive Data This method is not able to assess for hemolysis, which may falsely increase potassium concentrations. If further testing is needed to evaluate this result, consider in-laboratory plasma potassium. Current Interpretive Data was last revised on 2022. Testing performed by: [address] [address] Glucose, robert POC 102 70 - 199 mg/dL [facility] Comment:Testing performed by : [address] [address] Ionized Calcium, robert POC 5.00 4.50 - 5.10 mg/dL [facility] Comment:Testing performed by : [address], [place]., [address] Blood 04/20/2025 8:22 AM CDT 04/20/2025 8:22 AM CDT Chao Gibson MD LAB POCT ORDERABLES - DEVICE Final Result Performing Organization Address City/[facility]/ZIP Co de Phone Number [facility] [employer] [place] [address] * POCT glucose (04/20/2025 7:40 AM CDT) Pathologist [facility] Glucose, POC 100 70 - 199 mg/dL Comment:Testing performed by : [facility], [address] [place] [address]., [address] Blood 04/20/2025 7:40 AM CDT 04/20/2025 7:40 AM CDT Chao Gibson MD LAB POCT ORDERABLES - DEVICE Final Result Performing Organization Address [facility] de Phone Number [facility] [employer] [place] [address] * POCT hCG, urine (04/20/2025 7:30 AM CDT) [facility] HCG, ur, POC Negative Negative Lot Number [id number] QC Backgroud Clear Acceptable QC Control Line Acceptable Urine 04/20/2025 7:30 AM CDT Manohar Reece MD POINT OF CARE TEST ORDERABLES Fi nal Result * ECG 12 lead (04/17/2025 2:02 PM CDT) Pathologist [facility] Ventricular Rate EKG/Min 67 BPM [facility] Atrial Rate 67 BPM [facility] IA-Interval (MSEC) 156 ms [facility] QRS-Interval (MSEC) 98 ms [facility] QT-Interval (MSEC) 414 ms [facility] QTc 437 ms [facility] P [place] 58 degrees [facility] R [place] 47 degrees [facility] T [place] 50 degrees [facility] Diagnosis Normal sinus rhythm Normal ECG When compared with ECG of 13-JAN-2024 13:38, No significant change was found Confirmed by SULTAN TUTTLE M.D. ([id number]) on 04/17/2025 4:17:05 PM [facility] 04/17/2025 2:02 PM CDT 04/17/2025 4:17 PM CDT Manohar Reece MD ECG ORDERABLES Final Result [facility] * XR Abdomen 1 View AP (04/11/2025 3:27 PM CDT) Anatomical Region Laterality Modality Body, Abdomen N/A Computed Radiogr aphy 04/22/2025 2:46 PM CDT Narrative 04/22/2025 2:47 PM CDT EXAM DESCRIPTION: XR ABDOMEN AP 1 VIEW REASON FOR STUDY: LUQ abdominal pain LUQ abdominal pain w/ constipation x 3 weeks. Little bowel movements. TECHNIQUE: 1 radiographic view of the abdomen. COMPARISON: None FINDINGS: BOWEL: Nonobstructive gas pattern. Moderate stool throughout the colon. SOFT TISSUES: No abnormal calcifications. LINES/TUBES: None. BONES: No acute osseous abnormality. IUD overlying the pelvis. IMPRESSION: No acute abnormality. THIS IS AN ELECTRONICALLY VERIFIED FINAL REPORT 04/22/2025 2:47 PM - Electronically signed by Nicholas Wilcox M.D. RW: NUBIA Report ID: [id number] Reading Location: [id number] Procedure Note Nicholas Wilcox MD - 04/22/2025 EXAM DESCRIPTION: XR ABDOMEN AP 1 VIEW REASON FOR STUDY: LUQ abdominal pain LUQ abdominal pain w/ constipation x 3 weeks. Little bowel movements. TECHNIQUE: 1 radiographic view of the abdomen. COMPARISON: None FINDINGS: BOWEL: Nonobstructive gas pattern. Moderate stool throughoutthe colon. SOFT TISSUES: No abnormal calcifications. LINES/TUBES: None. BONES: No acute osseous abnormality. IUD overlying the pelvis. IMPRESSION: No acute abnormality. THIS IS AN ELECTRONICALLY VERIFIED FINAL REPORT 04/22/2025 2:47 PM - Electronically signed by Nicholas Wilcox M.D. RW: NUBIA Report ID: [id number] Reading Location: [id number] us Steph CD IMG XR PROCEDURES Final Result * eGFR (03/20/2025 1:19 PM CDT) eGFR >90 >=60 mL/min/1. 73 m2 Comment: Interpretive Data Reference Interval Normal >/= 90 mL/min/1.73m2 Mildly decreased* 60 - 89 mL/min/1.73m2 Mildly to moderately decreased 45 - 59 mL/min/1.73m2 Moderately to severely decreased 30 - 44 mL/min/1.73m2 Severely decreased 15 - 29 mL/min/1.73m2 Kidney Failure < 15 mL/min/1.73m2 *Relative to young adult level Estimated glomerular filtration rate is determined by the 2020 CKD-EPI equation recommended by the National Kidney Foundation (A Unifying Approach to GFR Estimation: Recommendations of the NKF-ASK Task Force on Reassessing the Inclusion of Race in Diagnosing Kidney Disease, JASN 2020). The CKD-EPI equation should not be used for patients with unstable renal function and has not been validated in children and those over 70. Current interpretive data was last reviewed 2021. Testing performed by: [address] [address] Blood 03/20/2025 1:19 PM CDT 03/20/2025 7:12 PM CDT us Nikole Ovalles HOSTING ENGINEER LAB BLOOD ORDERABLES Final R esult [facility] [address] [facility] Department [place] [address] * (ABNORMAL) Hemoglobin A1c (03/20/2025 1:19 PM CDT) Hgb A1C 6.0(H) 4.0 - 5.6 % Comment:Testing performed by : [address] [address] Estimated Average Glucose 126 mg/dL [facility] Comment: The ADA recommends reporting an estimated Average Glucose (eAG) with all Hemoglobin A1c results using the equation derived from a study of 507 normal and diabetic adults. Minority populations were underrepresented and children were not included. (Diabetes Care 31:0272-7280, 2008). The eAG is not equivalent to a fasting glucose. Testing performed by: [address] [address] Blood 03/20/2025 1:19 PM CDT 03/20/2025 7:12 PM CDT us Nikole Ovalles NP LAB BLOOD ORDERABLES Final R esult [facility] Department [place] [address] * (ABNORMAL) Basic metabolic panel (03/20/2025 1:19 PM CDT) Sodium 137 135 - 145 mmol/L Comment:Testing performed by : [address] [address] Potassium, pl 5.1(H) 3.3 - 4.9 mmol/L [facility] Comment:Testing performed by : [address] [address] Chloride 101 97 - 110 mmol/L [facility] Comment:Testing performed by : [address] [address] CO2 27 22 - 32 mmol/L [facility] Comment:Testing performed by : [address] [address] Anion gap 9 2 - 15 mmol/L [facility] Comment:Testing performed by : [address] [address] BUN 10 6 - 25 mg/dL [facility] Comment:Testing performed by : [address] [address] Creatinine 0.80 0.60 - 1.10 mg/dL [facility] Comment:Testing performed by : [address] [address] Glucose 101 70 - 199 mg/dL [facility] Comment: Interpretive Data Fasting glucose >/= 126 mg/dl is diagnostic for diabetes. Fasting is defined as no caloric intake for at least 8 hours. Fasting glucose between 100 mg/dl to 125 mg/dl is diagnostic of prediabetes. In a patient with classic symptoms of hyperglycemia or hyperglycemic crisis, a random glucose >/= 200 mg/dl is diagnostic for diabetes. In the absence of unequivocal hyperglycemia, results should be confirmed by repeat testing. The classification and Diagnosis of Diabetes Diabetes Care 202; 46: S19-S40. Current interpretive data was last revised 2022. Testing performed by: [address] [address] Calcium 9.8 8.5 - 10.3 mg/dL [facility] Comment:Testing performed by : [address] [address] Blood 03/20/2025 1:19 PM CDT 03/20/2025 7:12 PM CDT us Nikole Ovalles NP LAB BLOOD ORDERABLES Final R esult [facility] [address] [facility] Department [place] [address] * PAP SMEAR WITH HPV (03/04/2023) Historical Provider HEALTH MAINTENANCE Final Result from Last 3 Months or Most Recently Relevant to Health Maintenance Insurance [facility] Care Teams Enroute Controller Relationship Specialty Start Date End Date Steph Kessler PA [address] [place], [place] [id number] PCP - General Critical Care Med 10/09/22 Aleyda Palomo 09/09/23 Radha Ivy MD [address] [place] [address] Anesthesiologist Pain Management 12/25/24 Chao Gibson MD [address] [place] [id number] Consulting Physician General Surgery 04/20/25
--- OUTSIDE RECORDS SUMMARY | 2025-05-21 16:03 | XMS_ITS | Clinical Summary ---
Author Organization [facility] Address [address] [place] [address] Care Team Providers Care Lime Kiln Operator Name Role Phone Steph Kessler PA-C Primary Care Provider [phone] Allergies Active Allergy Reactions Criticality Noted Date Comments Amoxicillin-Pot Clavulanate Other (see comment) Medium 04/23/2016 Augmentin that makes pt sick to stomach, other amoxicillin based products can tolerate Bupropion Hallucinations Medium 10/27/2022 Hydrocodone-Acetamino phen Hallucinations,Other (see comment),Rash Medium 04/23/2016 hallucinations hallucinations Levofloxacin Other (see comment) Low 01/23/2017 Body aches Body aches Metoclopramide Unknown 08/31/2020 Psychosis, hallucinations Oseltamivir Hallucinations Medium 10/27/2022 Shellfish-Derived Products Shortness of Breath High 02/06/2023 Varenicline Rash Medium 04/23/2016 Medications Multiple Vitamin (MULTIVITAMIN ADULT OR) Take 1 tablet by mouth daily. Active escitalopram (LEXAPRO) 20 MG tablet Take 1.5 tablets (30 mg total) by mouth see administration instructions. Takes a total of 30 mg 12/14/19 23 Active ibuprofen (MOTRIN) 200 MG tablet Take 1 tablet (200 mg total) by mouth every 8 (eight) hours as needed. Active lamoTRIgine (LAMICTAL) 100 MG tablet Take 1 tablet (100 mg total) by mouth 2 (two) times daily. 100 mg am, 250 mg pm 10/09/20 Active levonorgestrel (MIRENA) 20 MCG/DAY IUD 1 Intra Uterine Device by Intrauterine route once. Active omeprazole (PRILOSEC) 40 MG capsule Take 1 capsule (40 mg total) by mouth daily. 11/23/19 23 Active metFORMIN ER (GLUCOPHAGE-XR) 500 MG 24 hr tablet Take 1 tablet (500 mg total) by mouth daily with breakfast. 11/04/20 22 Active spironolactone (ALDACTONE) 25 MG tablet Take 2 tablets (50 mg total) by mouth daily. 11/04/20 22 Active ondansetron (ZOFRAN-ODT) 4 MG disintegrating tablet Take 1 tablet (4 mg total) by mouth every 8 (eight) hours as needed for Nausea. 20 tablet 02/10/20 24 Active ketoconazole (NIZORAL) 2 % cream Apply topically daily. 01/06/20 24 Active methylphenidate CR (CONCERTA) 36 MG tablet Take 1 tablet (36 mg total) by mouth every morning. Active pregabalin (LYRICA) 75 MG capsule Take 1 capsule (75 mg total) by mouth 2 (two) times daily. Active traMADol (ULTRAM) 50 MG tabletIndications: Acute Pain < 7 Day Supply Take 1 tablet (50 mg total) by mouth every 6 (six) hours as needed for Pain. Indications: Acute Pain < 7 Day Supply 20 tablet 02/09/20 25 Active naproxen (NAPROSYN) 500 MG tablet Take 1 tablet (500 mg total) by mouth 2 (two) times daily with meals. 10 tablet 03/08/20 25 Active Encounters Date Type Department Care Team Description 05/18/2025 1:30 PM CDT Office Visit [facility] Physical Therapy [address] [place], [place] [id number] Meir Friedman NP Walters, Cierra J, PT Initial Evaluation 05/18/2025 Travel 03/08/2025 1:49 PM CDT - 03/08/2025 2:54 PM CDT Emergency [facility] Emergency Room [address] [place] [address] Alan Tinoco MD Urinary Symptoms Discharge Disposition: Home or Self Care (Routine Discharge) 03/08/2025 Travel 03/06/2025 1:06 PM CDT - 03/06/2025 11:59 PM CDT Hospital Encounter [facility] Outpatient [place] [address] Steph Kessler PA-C Pawloski, Megan M, OTR Discharge Disposition: Home or Self Care (Routine Discharge) 03/06/2025 Travel from Last 3 Months Social History Tobacco Use Types Packs/Day Years Used Date Smoking Tobacco: Every Day Cigarettes Smokeless Tobacco: Current Tobacco Cessation:Ready to Q uit: Not Asked; Counseling Given: Not Answered Alcohol Use Standard Drinks/Week Comments Not Currently 0 (1 standard drink = 0.6 oz pur e alcohol) Comments No Sex and Gender Information Value Date Recorded Sex Assigned at Female 02/08/2025 11:44 AM CDT Legal Sex Female 11:10 AM LEGAL RECOVERY SPECIALIST Gender Identity Not on file Sexual Orientation Not on file Last Filed Vital Signs Vital Sign Reading Time Taken Comments Blood Pressure 130/89 03/08/2025 1:51 PM CDT Pulse 80 03/08/2025 1:51 PM CDT Temperature 36.3 C (97.3 F) 03/08/2025 1:51 PM CDT Respiratory Rate 16 03/08/2025 1:51 PM CDT Oxygen Saturation 98% 03/08/2025 1:51 PM CDT Inhaled Oxygen Concentration - - Weight 153.3 kg (338 lb) 03/08/2025 1:51 PM CDT Height 162.6 cm (5' 4) 03/08/2025 1:51 PM CDT Body Mass Index 58.02 03/08/2025 1:51 PM CDT Plan of Treatment Upcoming Encounters Date Type Department Care Team (Late st Contact Info) Description 05/22/2025 3:00 PM CDT Office Visit [facility] Physical Therapy [address] [place], [place] [address] Meir Friedman, SANDRA [address] [facility] [address] [place] [address] Celia Varma, [place] [address] 06/01/2025 1:30 PM CDT Office Visit [facility] Physical Therapy [address] [place] [address] Maximilian العراقي, BRAKE ADJUSTER 06/04/2025 1:30 PM CDT Office Visit [facility] Physical Therapy [address] [place] [address] Sarina Beltrán, PT [address] [place] [address] 06/11/2025 1:30 PM CDT Office Visit [facility] Physical Therapy [address] [place] [address] Sybil Perez, BRAKE ADJUSTER 06/19/2025 1:30 PM CDT Office Visit [facility] Physical Therapy [address] [place] [address] Sarina Beltrán, PT [address] [place], [place] [id number] Health Maintenance Due Date Last Done Comments Cervical Cancer Screening Pa p Smear (Age 30 to 64) Every 3 Years 1990 Annual Physical 1993 Hepatitis C 2008 Hepatitis B Vaccines (1 of 3 - 19+ 3-dose series) 2009 Pneumococcal Vaccine: Pediatrics (0 to 5 Years) and At-Risk Patients (6 to 49 Years) (1 of 2 - PCV) 2009 Cervical Cancer Screening Pa p with HPV Testing (Age 30 to 64) Every 5 Years 2020 Cervical Cancer Screening wi th HPV 2020 COVID-19 Vaccine (2023-2 5 season) 2024 DTaP, Tdap and Td Vaccines ( 3 - Td or Tdap) 06/15/2034 06/15/2024, 03/07/2014 HPV Vaccines Aged Out No longer eligi ble based on patient's age to complete this topic Meningococcal B Vaccine Aged Out No l onger eligible based on patient's age to complete this topic Meningococcal Vaccine Aged Out No jayro manuel eligible based on patient's age to complete this topic RSV Immunizations Under 20 Months Aged Out No longer eligible b ased on patient's age to complete this topic Procedures Procedure Name Priority Date/Time Associated Diagnosis Comments TEST URINE STAT 03/08/2025 2:00 PM CDT HC URINALYSIS AUTO W/O MICRO STAT 03/08/2025 2:00 PM CDT from Last 3 Months Results * (ABNORMAL) URINALYSIS (03/08/2025 2:00 PM CDT) COLOR (U) LIGHT YELLOW 03/08/2025 2:24 PM CDT [facility] TRANSPARENCY SLIGHTLY CLOUDY 03/08/2025 2:24 PM CDT [facility] SPECIFIC GRAVITY (U) 1.010 1.002 - 1.030 03/08/2025 2:24 PM CDT [facility] U PH 7.0 4.5 - 8.0 03/08/2025 2:24 PM CDT [facility] LEUKOCYTES (U) 3+(A) NEGATIVE 03/08/2025 2:24 PM CDT [facility] NITRITES NEGATIVE NEGATIVE 03/08/2025 2:24 PM CDT [facility] PROTEIN RANDOM (U) 2+(A) NEGATIVE 03/08/2025 2:24 PM CDT [facility] GLUCOSE (U) NEGATIVE NEGATIVE 03/08/2025 2:24 PM CDT [facility] KETONES MG/DL (U) NEGATIVE NEGATIVE 03/08/2025 2:24 PM CDT [facility] UROBILINOGEN NORMAL NORMAL EU/DL 03/08/2025 2:24 PM CDT [facility] BILIRUBIN (U) NEGATIVE NEGATIVE 03/08/2025 2:24 PM CDT [facility] BLOOD (U) 5+(A) NEGATIVE 03/08/2025 2:24 PM CDT [facility] WBC/HPF 20-50 /HPF 03/08/2025 2:24 PM CDT [facility] RBC/HPF 50-100 /HPF 03/08/2025 2:24 PM CDT [facility] EPI/HPF 0-5 /HPF 03/08/2025 2:24 PM CDT [facility] MUCUS 1+ 03/08/2025 2:24 PM CDT [facility] URINE SPECIMEN OBTAINED BY CLEAN CATCH PROCEDURE / Unknown 03/08/2025 2:00 PM CDT us Alan Tinoco MD URINE ORDERABLES Final Result Performing Organization Address City/[facility] Co de Phone Number [facility] [address] [place] [address], [place] [phone] * TEST URINE (03/08/2025 2:00 PM CDT) URINE HCG TEST NEGATIVE NEGATIVE 03/08/2025 2:14 PM CDT [facility] Comment: VERY DILUTE URINE SPECIMENS MAY NOT CONTAIN RECEPTION AGENT LEVELS OF HCG. IF IS STILL SUSPECTED, A SERUM HCG TEST IS RECOMMENDED. URINE SPECIMEN FROM URETHRA / Unknown 03/08/2025 2:00 PM CDT us Alan Tinoco MD URINE ORDERABLES Final Result Performing Organization Address City/[facility]/ZIP Co de Phone Number [facility] [address] [place] [address], [place] [phone] from Last 3 Months Insurance [place] Care Teams Lime Kiln Operator Relationship Specialty Start Date End Date Steph Kessler PA-C [address] [place] [address] PCP - General PHYSICIAN SOLID WASTE DIVISION SUPERVISOR 11/03/22
--- OUTSIDE RECORDS SUMMARY | 2025-05-21 16:03 | XMS_ITS | Patient Health Record ---
Author Organization Formerly [facility] Address [address] [place] [address] Care Team Providers Care Block Hacker Name Role Phone Stacia Aleyda Primary Care Provider Karin Cabello Unavailable Allergies Allergen (clinical drug ingredient) Drug/Non Drug Allergy documented on EMR Reaction Allergy Type Onset Date Status metoclopramide Reglan psychosis Drug Allergy Ac tive Shellfish (FN) Shellfish-derived Products nausea and vomiting Drug Allergy Active Reason For Referral No Information Medications Medication SIG (Take, Route, Frequency, Duration) Notes Start Date End Date Status Lexapro 20 MG 1 tablet Orally Once a day; Duration: 30 days 30 mg total Active Lyrica 50 MG 1 capsule Orally two times daily Active Lexapro 10 MG 1 tablet Orally Once a day; Duration: 16 days total Lexapro 30 mg daily 01/31/2024 Active Lexapro 10 MG 1 tablet Orally Once a day; Duration: 30 days 30 mg total Active lamoTRIgine 100 MG 1 tablet every morning, 1.5 tablet every evening Orally two times daily; Duration: 30 days Active Caplyta 10.5 MG 2 tablets Orally onc e daily; Duration: 30 days Active Social History Tobacco Use: Social History Observation Description Date Details (start date - stop date) Light tobacco s moker 06/05/2007 - NA PRAPARE Question Answer Notes Date Completed/Updated: 04/02/2025 What is your current housing situation? I have h ousing Are you worried about losing your housing? No What is the highest level of school that you have finished? More than high school What is your current work situation? Oth erwise unemployed but not seeking work (ex. 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 Check all that apply I do not have problems meeting my needs Has lack of transportation k ept you from medical appointments, meetings, work or from getting things needed for daily living? No How often do you see or talk to people that you care about and feel close to? (For example: talking to friends on the phone, visiting friends or family, going to congregational or club meetings) 3 to 5 times a week How stressed are you? Stress is when someone feels tense, nervous, anxious, or can\t sleep at night because their mind is troubled Quite a bit In the past year have you sp ent more than 2 nights in a row in a fdc, nursing home, senior living center, or juvenile correctional facility? No Do you feel physically and e motionally safe where you currently live? Yes In the past year, have you b een afraid of your partner or ex-partner? No PRAPARE Score: 4 Tobacco Control (Standard) Question Answer Notes Tobacco use: Light tobacco smoker When did you start smoking? 06/05/2007 How often do you smoke cigarettes? Every day How many cigarettes a day do you smoke? 5 or les s How soon after you wake up d o you smoke your first cigarette? 6-30 minutes Are you interested in quitting? Not ready to jesús t When did you start smoking? 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), inattentive type (F90.0) Active confirmed Problem Bipolar 2 disorder (81989021) Bipolar 2 disorder (F31.81) Active confirmed Problem Tobacco user (082319595) Nicotine dependence with current use (F17.200) Active confirmed Encounters Encounter Location Date Provider Diagnosis [address] [place] [phone] 06/14/2024 Aleyda Sparr PTSD (post-traumatic stress disorder) F43.10 ; ADHD (attention deficit hyperactivity disorder), inattentive type F90.0 and Bipolar 2 disorder F31.81 [facility] [address] [place] [phone] 07/19/2024 Aleyda Sparr PTSD (post-traumatic stress disorder) F43.10 ; ADHD (attention deficit hyperactivity disorder), inattentive type F90.0 ; Bipolar 2 disorder F31.81 and Nicotine dependence with current use F17.200 [facility] [address] [place] [phone] 08/11/2024 Aleyda Sparr PTSD (post-traumatic stress disorder) F43.10 ; ADHD (attention deficit hyperactivity disorder), inattentive type F90.0 ; Bipolar 2 disorder F31.81 and Nicotine dependence with current use F17.200 [facility] [address] [place] [phone] 09/22/2024 Aleyda Sparr PTSD (post-traumatic stress disorder) F43.10 ; ADHD (attention deficit hyperactivity disorder), inattentive type F90.0 ; Bipolar 2 disorder F31.81 and Nicotine dependence with current use F17.200 [facility] [address] [place] [phone] 11/02/2024 Aleyda Sparr PTSD (post-traumatic stress disorder) F43.10 ; ADHD (attention deficit hyperactivity disorder), inattentive type F90.0 ; Bipolar 2 disorder F31.81 and Nicotine dependence with current use F17.200 [facility] [address] [place] [phone] 12/08/2024 Aleyda Sparr PTSD (post-traumatic stress disorder) F43.10 ; ADHD (attention deficit hyperactivity disorder), inattentive type F90.0 ; Bipolar 2 disorder F31.81 and Nicotine dependence with current use F17.200 [facility] [address] [place] [phone] 01/03/2025 Aleyda Sparr PTSD (post-traumatic stress disorder) F43.10 ; ADHD (attention deficit hyperactivity disorder), inattentive type F90.0 ; Bipolar 2 disorder F31.81 and Nicotine dependence with current use F17.200 [facility] [address] [place] [phone] 02/28/2025 Aleyda Sparr PTSD (post-traumatic stress disorder) F43.10 ; ADHD (attention deficit hyperactivity disorder), inattentive type F90.0 ; Bipolar 2 disorder F31.81 and Nicotine dependence with current use F17.200 [facility] [address] [address] 04/05/2025 Aleyda Sparr PTSD (post-traumatic stress disorder) F43.10 ; ADHD (attention deficit hyperactivity disorder), inattentive type F90.0 ; Bipolar 2 disorder F31.81 and Nicotine dependence with current use F17.200 [facility] [address] [place] [phone] 05/15/2025 Aleyda Sparr PTSD (post-traumatic stress disorder) F43.10 ; ADHD (attention deficit hyperactivity disorder), inattentive type F90.0 ; Bipolar 2 disorder F31.81 and Nicotine dependence with current use F17.200 [facility] [address] [place] [phone] 08/03/2024 [facility] [address] [address] 08/23/2024 Aleyda Palomo [address] [place] [address] 09/13/2024 Aleyda Palomo Bipolar 2 disorder F31.81 and ADHD (attention deficit hyperactivity disorder), inattentive type F90.0 [facility] [address] [address] 09/13/2024 Aleyda Palomo ADHD (attention deficit hyperactivity disorder), inattentive type F90.[address] [place] [address] 10/05/2024 Aleyda Palomo [address] [place] [address] 10/24/2024 Karin Cabello [facility] [address] [address] 11/02/2024 Aleyda Palomo [facility] [address] [address] 02/16/2025 Aleyda Sparr Bipolar 2 disorder F31.81 [address] [place] [address] 02/16/2025 Aleyda Aguilerar [facility] [address] [address] 03/20/2025 Aleyda Sparr Bipolar 2 disorder F31.81 and ADHD (attention deficit hyperactivity disorder), inattentive type F90.[address] [place] [address] 04/03/2025 Aleyda Palomo [facility] [address] [address] 04/18/2025 Aleyda Palomo [address] [place] [address] 05/01/2025 Aleyda Sparr Bipolar 2 disorder F31.81 Assessments Encounter Date Diagnosis (ICD Code) Assessment Notes Treatment Notes Treatment Clinical Notes Section Notes 07/19/2024 PTSD (post-traumatic stress disorder) (ICD-10 - F43.10) PTSD group therapy with therapist Apryl [facility] 08/11/2024 PTSD (post-traumatic stress disorder) (ICD-10 - F43.10) PTSD group therapy with therapist Apryl [facility] 09/13/2024 Bipolar 2 disorder (ICD-10 - F31.81) 09/13/2024 ADHD (attention deficit hyperactivity disorder), inattentive type (ICD-10 - F90.0) 09/22/2024 PTSD (post-traumatic stress disorder) (ICD-10 - F43.10) PTSD group therapy with therapist Apryl [facility] 11/02/2024 PTSD (post-traumatic stress disorder) (ICD-10 - F43.10) PTSD group therapy with therapist Apryl [facility] 02/16/2025 Bipolar 2 disorder (ICD-10 - F31.81) 02/28/2025 PTSD (post-traumatic stress disorder) (ICD-10 - F43.10) PTSD group therapy with therapist Apryl [facility] 06/14/2024 PTSD (post-traumatic stress disorder) (ICD-10 - F43.10) PTSD group therapy with therapist Apryl [facility] 05/15/2025 PTSD (post-traumatic stress disorder) (ICD-10 - F43.10) PTSD group therapy with therapist Apryl [facility] 05/01/2025 Bipolar 2 disorder (ICD-10 - F31.81) 04/05/2025 PTSD (post-traumatic stress disorder) (ICD-10 - F43.10) PTSD group therapy with therapist Apryl [facility] 03/20/2025 Bipolar 2 disorder (ICD-10 - F31.81) 01/03/2025 PTSD (post-traumatic stress disorder) (ICD-10 - F43.10) PTSD group therapy with therapist Apryl [facility] 12/08/2024 PTSD (post-traumatic stress disorder) (ICD-10 - F43.10) PTSD group therapy with therapist Apryl [facility] 12/08/2024 ADHD (attention deficit hyperactivity disorder), inattentive type (ICD-10 - F90.0) -- titrate Concerta for poor focus and concentration, evaluate at follow up --improved focus and concentration, decreased racing thoughts, still feels a little foggy, ran out of Concerta 27 mg started taking Concerta 18 mg x2, head felt more clear, improved focus with 36 mg, will titrate Concerta and monitor for SE, education provided concerning Concerta titration, pt verbalized understanding of the same trialed Vyvanse and AdderallAmrita 01/03/2025 ADHD (attention deficit hyperactivity disorder), inattentive type (ICD-10 - F90.0) -- continue Concerta for poor focus and concentration, evaluate at follow up --improved focus and concentration, occasional racing thoughts, still feels a little foggy at times, feels this is situational, trialed Vyvanse and Adderall, Strattera 03/20/2025 ADHD (attention deficit hyperactivity disorder), inattentive type (ICD-10 - F90.0) 04/05/2025 ADHD (attention deficit hyperactivity disorder), inattentive type (ICD-10 - F90.0) - __feels like Concerta isn't working at all, poor focus and concentration, poor motivation - DC Concerta due to ineffectiveness, and elevated b/p - hold ADHD tx for now trialed Vyvanse and Adderall, Strattera 05/15/2025 ADHD (attention deficit hyperactivity disorder), inattentive type (ICD-10 - F90.0) - - hold ADHD tx for now trialed Vyvanse and Adderall, Strattera, Concerta 09/13/2024 ADHD (attention deficit hyperactivity disorder), inattentive type (ICD-10 - F90.0) 06/14/2024 ADHD (attention deficit hyperactivity disorder), inattentive type (ICD-10 - F90.0) -feels Stratter was helpful in calming mind, improve focus, improve motivation, symptoms are not as bad as they had been, but feels they could be better __titrate Strattera for poor focus and concentration, evaluate at follow up trialed Vyvanse and Adderall 02/28/2025 ADHD (attention deficit hyperactivity disorder), inattentive type (ICD-10 - F90.0) -- titrate Concerta for poor focus and concentration, evaluate at follow up --feels like Concerta isn't strong enough, or last long enoug, isn't as effective as Vyvanse was, decreased focus and concentration, racing thoughts at times, trialed Vyvanse and Adderall, Strattera 11/02/2024 ADHD (attention deficit hyperactivity disorder), inattentive type (ICD-10 - F90.0) -- titrate Concerta for poor focus and concentration, evaluate at follow up --decreased focus, increased racing thoughts, doesn't feel Concerta has been working at all, poor motivaiton trialed Vyvanse and Adderall, Strattera 09/22/2024 ADHD (attention deficit hyperactivity disorder), inattentive type (ICD-10 - F90.0) --continue Concerta for poor focus and concentration, evaluate at follow up --feels Concerta is working well, slows down racing thoughts, slowly loses effectiveness during the day, no abrupt drop off, lasts about 10 hours, prefers to continue same dose trialed Vyvanse and Adderall, Strattera 08/11/2024 ADHD (attention deficit hyperactivity disorder), inattentive type (ICD-10 - F90.0) --trial Concerta for poor focus and concentration, evaluate at follow up trialed Vyvanse and Adderall, Strattera 07/19/2024 ADHD (attention deficit hyperactivity disorder), inattentive type (ICD-10 - F90.0) -feels Stratter was causing constipation, quit taking Strattera __DC Strattera --hold treatment for ADHD for now, due to trialing Naltrexone for smoking cessation trialed Vyvanse and Adderall 07/19/2024 Bipolar 2 disorder (ICD-10 - F31.81) Reasons, potential benefits, potential risks, interactions and side effects of all medications were discussed. The Patient/Guardian asked appropriate questions, appeared to understand the answers, and decided to accept the treatment and continue being followed. Alternatives and expected course without treatment were reviewed. The Patient/Guardian is aware of the need to contact the office or return for an earlier appointment if any problems or concerns arise. May also contact the 24-hour crisis hotline ([facility]), refer to the closest emergency room or call 911 if new symptoms arise of existing symptoms worsen. The Patient/Guardian is aware that this would apply to symptoms like: suicidal ideation, homicidal ideation, high risk behaviors, manic symptoms, psychotic symptoms, physical symptoms, or any other symptoms that may be dangerous to self or others. Greater than 50% of time spent on coordination and counseling where psychopharmacology as well as psychotherapeutic interventions were discussed along with review of treatments in the past. Education provided concerning need for adequate hydration Patient/Guardian verbalized understanding of education, treatment plan and follow up Follow-up appt performed 100% telephonically/virtua lly unable to assess, VS, involuntary movement, Follow up in 1 MO or sooner as needed --May self-administer or be administered own oral medication per [facility]. Provided informed consent with understanding of side effects, risks and benefits as well as alternative treatments as previously discussed and with the above recommended medications ang other aspects of the treatment program. Agrees to return sooner if symptoms worsen or suicidal or homicidal ideations occur. --support and education provided concerning illness and treatment plan, risks and benefits, pt verbalized understanding of the same and agreeable __continue Lamotrigine for mood swings, depression, anxiety __continue Lexapro for anxiety and depression, evaluate at follow up __denies mood swings, feels irritable with hot weather, trying to quit smoking and feels more depressed with attempts to quit --is quitting smoking to have bypass surgery 07/19/2024 Nicotine dependence with current use (ICD-10 - F17.200) --quit smoking x12 hours, started crying, low energy and motivation, started smoking again --education and support concerning smoking cessation, pt has trialed Chantix and Nicotine patches --trial Naltrexone for smoking cessation, evaluate at follow up, pt verbalized understaning of the same, risks and benefit education provided, verbalized understanding of the same 08/11/2024 Bipolar 2 disorder (ICD-10 - F31.81) Reasons, potential benefits, potential risks, interactions and side effects of all medications were discussed. The Patient/Guardian asked appropriate questions, appeared to understand the answers, and decided to accept the treatment and continue being followed. Alternatives and expected course without treatment were reviewed. The Patient/Guardian is aware of the need to contact the office or return for an earlier appointment if any problems or concerns arise. May also contact the 24-hour crisis hotline ([facility]), refer to the closest emergency room or call 911 if new symptoms arise of existing symptoms worsen. The Patient/Guardian is aware that this would apply to symptoms like: suicidal ideation, homicidal ideation, high risk behaviors, manic symptoms, psychotic symptoms, physical symptoms, or any other symptoms that may be dangerous to self or others. Greater than 50% of time spent on coordination and counseling where psychopharmacology as well as psychotherapeutic interventions were discussed along with review of treatments in the past. Education provided concerning need for adequate hydration Patient/Guardian verbalized understanding of education, treatment plan and follow up Follow-up appt performed 100% telephonically/virtua lly unable to assess, VS, involuntary movement, Follow up in 1 MO or sooner as needed --May self-administer or be administered own oral medication per [facility]. Provided informed consent with understanding of side effects, risks and benefits as well as alternative treatments as previously discussed and with the above recommended medications ang other aspects of the treatment program. Agrees to return sooner if symptoms worsen or suicidal or homicidal ideations occur. --support and education provided concerning illness and treatment plan, risks and benefits, pt verbalized understanding of the same and agreeable __continue Lamotrigine for mood swings, depression, anxiety __continue Lexapro for anxiety and depression, evaluate at follow up __admits mood swings, feels irritable, trying to quit smoking and feels more depressed with attempts to quit, feels focus and concentration is uncontrolled, having financial difficulties --is quitting smoking to have gastric bypass surgery 09/22/2024 Bipolar 2 disorder (ICD-10 - F31.81) Reasons, potential benefits, potential risks, interactions and side effects of all medications were discussed. The Patient/Guardian asked appropriate questions, appeared to understand the answers, and decided to accept the treatment and continue being followed. Alternatives and expected course without treatment were reviewed. The Patient/Guardian is aware of the need to contact the office or return for an earlier appointment if any problems or concerns arise. May also contact the 24-hour crisis hotline ([facility]), refer to the closest emergency room or call 911 if new symptoms arise of existing symptoms worsen. The Patient/Guardian is aware that this would apply to symptoms like: suicidal ideation, homicidal ideation, high risk behaviors, manic symptoms, psychotic symptoms, physical symptoms, or any other symptoms that may be dangerous to self or others. Greater than 50% of time spent on coordination and counseling where psychopharmacology as well as psychotherapeutic interventions were discussed along with review of treatments in the past. Education provided concerning need for adequate hydration Patient/Guardian verbalized understanding of education, treatment plan and follow up Follow-up appt performed 100% telephonically/virtua javier unable to assess, VS, involuntary movement, Follow up in 1 MO or sooner as needed --May self-administer or be administered own oral medication per [facility]. Provided informed consent with understanding of side effects, risks and benefits as well as alternative treatments as previously discussed and with the above recommended medications ang other aspects of the treatment program. Agrees to return sooner if symptoms worsen or suicidal or homicidal ideations occur. --support and education provided concerning illness and treatment plan, risks and benefits, pt verbalized understanding of the same and agreeable __continue Lamotrigine for mood swings, depression, anxiety evaluate at follow up __continue Lexapro for anxiety and depression, evaluate at follow up __decreased mood swings, less irritable, has has several life situations that have increased depression and anxiety, had to put cat to sleep, friend OD'd and wouldn't give her location, feels she's handled these situations ok --is quitting smoking to have gastric bypass surgery 11/02/2024 Bipolar 2 disorder (ICD-10 - F31.81) Reasons, potential benefits, potential risks, interactions and side effects of all medications were discussed. The Patient/Guardian asked appropriate questions, appeared to understand the answers, and decided to accept the treatment and continue being followed. Alternatives and expected course without treatment were reviewed. The Patient/Guardian is aware of the need to contact the office or return for an earlier appointment if any problems or concerns arise. May also contact the 24-hour crisis hotline ([facility]), refer to the closest emergency room or call 911 if new symptoms arise of existing symptoms worsen. The Patient/Guardian is aware that this would apply to symptoms like: suicidal ideation, homicidal ideation, high risk behaviors, manic symptoms, psychotic symptoms, physical symptoms, or any other symptoms that may be dangerous to self or others. Greater than 50% of time spent on coordination and counseling where psychopharmacology as well as psychotherapeutic interventions were discussed along with review of treatments in the past. Education provided concerning need for adequate hydration Patient/Guardian verbalized understanding of education, treatment plan and follow up Follow-up appt performed 100% telephonically/virtua lly unable to assess, VS, involuntary movement, Follow up in 1 MO or sooner as needed --May self-administer or be administered own oral medication per [facility]. Provided informed consent with understanding of side effects, risks and benefits as well as alternative treatments as previously discussed and with the above recommended medications ang other aspects of the treatment program. Agrees to return sooner if symptoms worsen or suicidal or homicidal ideations occur. --support and education provided concerning illness and treatment plan, risks and benefits, pt verbalized understanding of the same and agreeable __titrate Lamotrigine for mood swings, depression, anxiety evaluate at follow up __continue Lexapro for anxiety and depression, evaluate at follow up __increased mood swings, irritable, easily triggered, increased depression, moderate anxiety, poor sleep, poor energy and motivation, holidays have always been a struggle, __is quitting smoking to have gastric bypass surgery 02/28/2025 Bipolar 2 disorder (ICD-10 - F31.81) Reasons, potential benefits, potential risks, interactions and side effects of all medications were discussed. The Patient/Guardian asked appropriate questions, appeared to understand the answers, and decided to accept the treatment and continue being followed. Alternatives and expected course without treatment were reviewed. The Patient/Guardian is aware of the need to contact the office or return for an earlier appointment if any problems or concerns arise. May also contact the 24-hour crisis hotline ([facility]), refer to the closest emergency room or call 911 if new symptoms arise of existing symptoms worsen. The Patient/Guardian is aware that this would apply to symptoms like: suicidal ideation, homicidal ideation, high risk behaviors, manic symptoms, psychotic symptoms, physical symptoms, or any other symptoms that may be dangerous to self or others. Greater than 50% of time spent on coordination and counseling where psychopharmacology as well as psychotherapeutic interventions were discussed along with review of treatments in the past. Education provided concerning need for adequate hydration Patient/Guardian verbalized understanding of education, treatment plan and follow up Follow-up appt performed 100% telephonically/virtua lly with pt consent, unable to assess, VS, involuntary movement, Follow up in 1 MO or sooner as needed --May self-administer or be administered own oral medication per [facility]. Provided informed consent with understanding of side effects, risks and benefits as well as alternative treatments as previously discussed and with the above recommended medications ang other aspects of the treatment program. Agrees to return sooner if symptoms worsen or suicidal or homicidal ideations occur. --support and education provided concerning illness and treatment plan, risks and benefits, pt verbalized understanding of the same and agreeable --had sinus surgery 02/08/25--feeling tired and still recovering from surgery. Some mood swings, racing thoughts, and irritability, feels they are related to the current political climate and fairly well managed. Mild depression, moderate anxiety she feels are manageable. Ok energy and motivation. Denies SI/HI, AH/VH. Prefers to continue with current med regimen --mood swings at times, denies racing thoughts, irritable at times, mild depression, moderate anxiety. Still healing from sinus surgery which is affecting her mood. Current political climate is also affecting her mood, feels medicine is effective enough. Prefers to continue with same med regimen for now. Poor energy and motivation. __continue Lamotrigine for mood swings, depression, anxiety evaluate at follow up __continue Lexapro for anxiety and depression, evaluate at follow up __ 06/14/2024 Bipolar 2 disorder (ICD-10 - F31.81) Reasons, potential benefits, potential risks, interactions and side effects of all medications were discussed. The Patient/Guardian asked appropriate questions, appeared to understand the answers, and decided to accept the treatment and continue being followed. Alternatives and expected course without treatment were reviewed. The Patient/Guardian is aware of the need to contact the office or return for an earlier appointment if any problems or concerns arise. May also contact the 24-hour crisis hotline ([facility]), refer to the closest emergency room or call 911 if new symptoms arise of existing symptoms worsen. The Patient/Guardian is aware that this would apply to symptoms like: suicidal ideation, homicidal ideation, high risk behaviors, manic symptoms, psychotic symptoms, physical symptoms, or any other symptoms that may be dangerous to self or others. Greater than 50% of time spent on coordination and counseling where psychopharmacology as well as psychotherapeutic interventions were discussed along with review of treatments in the past. Education provided concerning need for adequate hydration Patient/Guardian verbalized understanding of education, treatment plan and follow up Follow-up appt performed 100% telephonically/virtua javier unable to assess, VS, involuntary movement, Follow up in 1 MO or sooner as needed --May self-administer or be administered own oral medication per [facility]. Provided informed consent with understanding of side effects, risks and benefits as well as alternative treatments as previously discussed and with the above recommended medications ang other aspects of the treatment program. Agrees to return sooner if symptoms worsen or suicidal or homicidal ideations occur. --support and education provided concerning illness and treatment plan, risks and benefits, pt verbalized understanding of the same and agreeable __continue Lamotrigine for mood swings, depression, anxiety __continue Lexapro for anxiety and depression, evaluate at follow up __occasional mood swings, feels irritable is due to quitting smoking,, hormone fluctuations, and pain, pt is seeing pain med clinic for pain management, continue med regimen, evaluate at follow up --has appt scheduled with [facility] in August to discuss bariatric surgery --is quitting smoking to have bypass surgery 05/15/2025 Bipolar 2 disorder (ICD-10 - F31.81) Reasons, potential benefits, potential risks, interactions and side effects of all medications were discussed. The Patient/Guardian asked appropriate questions, appeared to understand the answers, and decided to accept the treatment and continue being followed. Alternatives and expected course without treatment were reviewed. The Patient/Guardian is aware of the need to contact the office or return for an earlier appointment if any problems or concerns arise. May also contact the 24-hour crisis hotline ([facility]), refer to the closest emergency room or call 911 if new symptoms arise of existing symptoms worsen. The Patient/Guardian is aware that this would apply to symptoms like: suicidal ideation, homicidal ideation, high risk behaviors, manic symptoms, psychotic symptoms, physical symptoms, or any other symptoms that may be dangerous to self or others. Greater than 50% of time spent on coordination and counseling where psychopharmacology as well as psychotherapeutic interventions were discussed along with review of treatments in the past. Education provided concerning need for adequate hydration Patient/Guardian verbalized understanding of education, treatment plan and follow up Follow-up appt performed 100% telephonically/virtua lly with pt consent, unable to assess, VS, involuntary movement, Follow up in 6-8 weeks or sooner as needed - May self-administer or be administered own oral medication per [facility]. Provided informed consent with understanding of side effects, risks and benefits as well as alternative treatments as previously discussed and with the above recommended medications ang other aspects of the treatment program. Agrees to return sooner if symptoms worsen or suicidal or homicidal ideations occur. - support and education provided concerning illness and treatment plan, risks and benefits, pt verbalized understanding of the same and agreeable - Denies mood swings, occasional racing thoughts. Decreased irritability. Mild depression, Mild to moderate anxiety, spikes at times. Poor energy and motivation. Slightly improved executive functioning, task paralysis. Currently experiencing hidradentitis supprative. Denies SI/HI, AH/VH. Improved sleep, and sleep schedule. Caplyta has been somewhat effective, agreeable to titrating Caplyta - __continue Lamotrigine for mood swings, depression, anxiety evaluate at follow up __continue Lexapro for anxiety and depression, evaluate at follow up __titrate Caplyta for anxiety, depression, anhedonia, evaluate at follow up 04/05/2025 Bipolar 2 disorder (ICD-10 - F31.81) Reasons, potential benefits, potential risks, interactions and side effects of all medications were discussed. The Patient/Guardian asked appropriate questions, appeared to understand the answers, and decided to accept the treatment and continue being followed. Alternatives and expected course without treatment were reviewed. The Patient/Guardian is aware of the need to contact the office or return for an earlier appointment if any problems or concerns arise. May also contact the 24-hour crisis hotline ([facility]), refer to the closest emergency room or call 911 if new symptoms arise of existing symptoms worsen. The Patient/Guardian is aware that this would apply to symptoms like: suicidal ideation, homicidal ideation, high risk behaviors, manic symptoms, psychotic symptoms, physical symptoms, or any other symptoms that may be dangerous to self or others. Greater than 50% of time spent on coordination and counseling where psychopharmacology as well as psychotherapeutic interventions were discussed along with review of treatments in the past. Education provided concerning need for adequate hydration Patient/Guardian verbalized understanding of education, treatment plan and follow up Follow-up appt performed 100% telephonically/virtua lly with pt consent, unable to assess, VS, involuntary movement, Follow up in 1 MO or sooner as needed - May self-administer or be administered own oral medication per [facility]. Provided informed consent with understanding of side effects, risks and benefits as well as alternative treatments as previously discussed and with the above recommended medications ang other aspects of the treatment program. Agrees to return sooner if symptoms worsen or suicidal or homicidal ideations occur. - support and education provided concerning illness and treatment plan, risks and benefits, pt verbalized understanding of the same and agreeable - Denies mood swings, occasional racing thoughts. Only irritable when she's around more people or leaves home. Then it takes me a while to recover. Moderate depression, spikes at times. Moderate anxiety, spikes at times. Decreased energy and motivation. Reports poor executive functioning, task paralysis. Currently experiencing hidradentitis supprative. Denies SI/HI, AH/VH. Poor sleep, inconsistent sleep and schedule. Education provided related to to sleep routine and interventions. Pt offers multiple excuses for why offered options and interventions wouldn't work or be effective. -reports therapist thinks she needs a medication change and medication isn't working for her. Education and support provided related to medication management and tx options __continue Lamotrigine for mood swings, depression, anxiety evaluate at follow up __continue Lexapro for anxiety and depression, evaluate at follow up __trial Caplyta for anxiety, depression, anhedonia, evaluate at follow up 01/03/2025 Bipolar 2 disorder (ICD-10 - F31.81) Reasons, potential benefits, potential risks, interactions and side effects of all medications were discussed. The Patient/Guardian asked appropriate questions, appeared to understand the answers, and decided to accept the treatment and continue being followed. Alternatives and expected course without treatment were reviewed. The Patient/Guardian is aware of the need to contact the office or return for an earlier appointment if any problems or concerns arise. May also contact the 24-hour crisis hotline ([facility]), refer to the closest emergency room or call 911 if new symptoms arise of existing symptoms worsen. The Patient/Guardian is aware that this would apply to symptoms like: suicidal ideation, homicidal ideation, high risk behaviors, manic symptoms, psychotic symptoms, physical symptoms, or any other symptoms that may be dangerous to self or others. Greater than 50% of time spent on coordination and counseling where psychopharmacology as well as psychotherapeutic interventions were discussed along with review of treatments in the past. Education provided concerning need for adequate hydration Patient/Guardian verbalized understanding of education, treatment plan and follow up Follow-up appt performed 100% telephonically/virtua lly with pt consent, unable to assess, VS, involuntary movement, Follow up in 2 MO or sooner as needed --May self-administer or be administered own oral medication per [facility]. Provided informed consent with understanding of side effects, risks and benefits as well as alternative treatments as previously discussed and with the above recommended medications ang other aspects of the treatment program. Agrees to return sooner if symptoms worsen or suicidal or homicidal ideations occur. --support and education provided concerning illness and treatment plan, risks and benefits, pt verbalized understanding of the same and agreeable __continue Lamotrigine for mood swings, depression, anxiety evaluate at follow up __continue Lexapro for anxiety and depression, evaluate at follow up __decreased mood swings, less frequent and intense, less irritable, not as easily triggered, mild depression, moderate anxiety, poor sleep, improved energy and motivation, somewhat overwhelmed and stressed due to back pain. Prefers to continue with same med regimen __wants to quit smoking so she can have gastric bypass surgery 12/08/2024 Bipolar 2 disorder (ICD-10 - F31.81) Reasons, potential benefits, potential risks, interactions and side effects of all medications were discussed. The Patient/Guardian asked appropriate questions, appeared to understand the answers, and decided to accept the treatment and continue being followed. Alternatives and expected course without treatment were reviewed. The Patient/Guardian is aware of the need to contact the office or return for an earlier appointment if any problems or concerns arise. May also contact the 24-hour crisis hotline ([facility]), refer to the closest emergency room or call 911 if new symptoms arise of existing symptoms worsen. The Patient/Guardian is aware that this would apply to symptoms like: suicidal ideation, homicidal ideation, high risk behaviors, manic symptoms, psychotic symptoms, physical symptoms, or any other symptoms that may be dangerous to self or others. Greater than 50% of time spent on coordination and counseling where psychopharmacology as well as psychotherapeutic interventions were discussed along with review of treatments in the past. Education provided concerning need for adequate hydration Patient/Guardian verbalized understanding of education, treatment plan and follow up Follow-up appt performed 100% telephonically/virtua javier unable to assess, VS, involuntary movement, Follow up in 1 MO or sooner as needed --May self-administer or be administered own oral medication per [facility]. Provided informed consent with understanding of side effects, risks and benefits as well as alternative treatments as previously discussed and with the above recommended medications ang other aspects of the treatment program. Agrees to return sooner if symptoms worsen or suicidal or homicidal ideations occur. --support and education provided concerning illness and treatment plan, risks and benefits, pt verbalized understanding of the same and agreeable __continue Lamotrigine for mood swings, depression, anxiety evaluate at follow up __continue Lexapro for anxiety and depression, evaluate at follow up __decreased mood swings, less irritable, not as easily triggered, mild depression, moderate anxiety, poor sleep, improved energy and motivation, somewhat overwhelmed due to back pain __wants to quit smoking so she can have gastric bypass surgery 12/08/2024 Nicotine dependence with current use (ICD-10 - F17.200) --education and support concerning smoking cessation, pt has trialed Chantix and Nicotine patches 01/03/2025 Nicotine dependence with current use (ICD-10 - F17.200) --education and support concerning smoking cessation, pt has trialed Chantix and Nicotine patches 04/05/2025 Nicotine dependence with current use (ICD-10 - F17.200) - education and support concerning smoking cessation, pt has trialed Chantix and Nicotine patches 05/15/2025 Nicotine dependence with current use (ICD-10 - F17.200) - education and support concerning smoking cessation, pt has trialed Chantix and Nicotine patches 02/28/2025 Nicotine dependence with current use (ICD-10 - F17.200) --education and support concerning smoking cessation, pt has trialed Chantix and Nicotine patches 11/02/2024 Nicotine dependence with current use (ICD-10 - F17.200) --education and support concerning smoking cessation, pt has trialed Chantix and Nicotine patches 09/22/2024 Nicotine dependence with current use (ICD-10 - F17.200) --education and support concerning smoking cessation, pt has trialed Chantix and Nicotine patches 08/11/2024 Nicotine dependence with current use (ICD-10 - F17.200) --education and support concerning smoking cessation, pt has trialed Chantix and Nicotine patches --DC Naltrexone like the way she felt with Naltrexone 05/15/2025 Other Engaged individ ual in suicide risk assessment. Provided risk based intervention to ensure saftey and linkage to ongoing services Plan Of Treatment No Information Insurance Providers Payer Name Payer Address Payer Phone Subscriber Number Group Number Insured Name Patient Relationship to Insured Coverage Start Date Coverage End Date [address] [phone] [id number] [facility] on, Luz Elena Self - patient is the insured [facility] [address] [place] [phone] [id number] [facility] on, Luz Elena Self - patient is the insured 3 Medical (General) History Surgical History Surgery Date(Month/Year) Radio Frequency Nerve abaltion 12/21/23 Left Carpal tunnel surgery 01/18/24
--- OUTSIDE RECORDS SUMMARY | 2025-05-21 16:03 | XMS_ITS | Patient Health Record ---
Author Organization [facility] Address [address] [address] Care Team Providers Care Home Care Coordinator Name Role Phone MISSY MORTON Primary Care Provider zzMigration, Provider Unavailable Unavailabl e Allergies Allergen (clinical drug ingredient) Drug/Non Drug Allergy documented on EMR Reaction Allergy Type Onset Date Status LEVAQUIN (uncoded) other Allergy A ctive LORTAB (uncoded) Unknown Allergy Act cony metoclopramide Reglan Unknown Drug Allergy Ac tive oseltamivir Tamiflu Unknown Drug Allergy Activ e varenicline Chantix Unknown Drug Allergy Activ e Reason For Referral No Information Medications Medication SIG (Take, Route, Frequency, Duration) Notes Start Date End Date Status Lexapro 20 MG 1 tab(s) orally once a day for 30 day(s) Active Ventolin HFA 108 (90 Base) MCG/ACT 2 puff(s) inhaled 4 times a day Active Omeprazole 40 MG 1 cap(s) orally once a day Active Social History Tobacco Use: Social History Observation Description Date Details (start date - stop date) Current Smoker NA - NA TOBACCO USE Question Answer Notes Are you a: current smoker Problems Problem Type SNOMED Code ICD Code Onset Dates Problem Status W/U Status Risk Notes Problem 17492123 Chronic fatigue (R53.82) Active confirmed Problem BMI 45.0-49.9, adult (Z68.42) Active confirmed Encounters Encounter Location Date Provider Diagnosis [facility] [address] [place] [address] 01/07/2025 Provider moiseszMigration Plan Of Treatment No Information Insurance Providers Payer Name Payer Address Payer Phone Subscriber Number Group Number Insured Name Patient Relationship to Insured Coverage Start Date Coverage End Date [facility] [address] [facility] [address] [place], [place] [id number] [place], [place]N Self - patient is the insured Medications Administered Medication Instructions Date of Administration Dosage Notes DEXAMETHASONE <1 mg> 02/03/2017 1 mL DEXAMETHASONE <1 mg> 10/06/2018 10 mg Medical (General) History Medical History History ICD Code obesity depression Surgical History Surgery Date(Month/Year) tonsillectomy wisdom teeth removal Hospitalization History Reason Date(Month/Year) stomach virus 2013 psychiatric hospitalization 2009
--- OUTSIDE RECORDS SUMMARY | 2025-05-21 16:03 | XMS_ITS | Continuity of Care Document ---
Author Organization [facility]. 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 Name Role Phone Unavailable Unavailable Unavailable Unavailable Unavailable Unavailable Unavailable Unavailable Unavailable Unavailable Unavailable Unavailable Unavailable Unavailable Unavailable Unavailable Unavailable Unavailable Unavailable Unavailable Unavailable Unavailable Unavailable Unavailable Unavailable Unavailable Unavailable Unavailable Unavailable Unavailable Unavailable Unavailable Unavailable Unavailable Problems Pilonidal cyst Onset:10-Jun-2020 Kimmie Duarte DO NOTICE: A previous version o f this encounter summary may have had an inaccurate diagnosis descriptor that has been removed. The previous version with the inaccurate descriptor is available in an archived version. Onset:27-Jul-2018 Bitten by dog, initial encounter Onset:26-Aug-2017 Puncture wound without forei gn body of left upper arm, initial encounter Onset:26-Aug-2017 History of endometriosis Comments:Hx of endometriosis Gastroesophageal reflux dise ase Comments:Gastroesophageal reflux disease, esophagitis presence not specified Bipolar II disorder Comments:Bipolar 2 disorder Chronic gastritis Comments:Chronic gastritis Allergic rhinitis Comments:Allergic rhinitis OTHER AND UNSPECIFIED BIPOLA R DISORDERS, OTHER(296.89) Comments:Bipolar 2 disorder Severe obesity Comments:Obesity Acquired hypothyroidism Comments:Hypothyroidism Gastro-esophageal reflux disease without esophagitis Generalized anxiety disorder Allergies and Adverse Reactions levofloxacin(Allergy) Onset: 10-Jun-2020 Reaction:MUSCLE PAIN Levaquin(Allergy) Onset: 26-Aug-2017 Shellfish(Allergy) Onset: 26-Aug-2017 Reglan(Allergy) Onset: 26-Aug-2017 Tamiflu(Allergy) Onset: 26-Aug-2017 hydrocodone(Allergy) Onset: 31-Oct-2014 Reaction:UNKNOWN acetaminophen(Allergy) Onset: 31-Oct-2014 Reaction:UNKNOWN metoclopramide(Allergy) Onset: 31-Oct-2014 Reaction:UNKNOWN shellfish derived(Allergy) Onset: 31-Oct-2014 Reaction:UNKOWN Lortab(Allergy) Reaction:hallucination Augmentin(Allergy) Reaction:GI distress Augmentin(Allergy) Reaction:GI distress Augmentin(Allergy) Reaction:GI distress Levaquin(Allergy) Reaction:muscle aches Augmentin(Allergy) Reaction:GI distress Chantix(Allergy) Reaction:rash Augmentin(Allergy) Reaction:GI distress reglan(Allergy) Reaction:hallucination Oseltamivir 75 MG Oral Capsu le [Tamiflu](Allergy) Reaction:suicidal ideation Augmentin(Allergy) Reaction:GI distress SHELLFISH(Allergy) Reaction:anaphylaxis Augmentin(Allergy) Reaction:GI distress Augmentin(Allergy) Reaction:GI distress Medications 120 ACTUAT Fluticasone propi singh 0.05 MG/ACTUAT Nasal Inhaler;50 MCG/ACT Nasally BID, 1 spray in each nostril Quantity:1 SANDOVAL PAPPAS Start:27-Oct-2021 Comments:50 MCG/ACT Nasally BID, 1 spray in each nostril metroNIDAZOLE 500 MG Oral Tablet;500 MG Orally Three times a day, 1 tablet Quantity:30 SANDOVAL PAPPAS Start:27-Oct-2021 Comments:500 MG Orally Three times a day, 1 tablet metFORMIN hydrochloride 500 MG Oral Tablet;500 MG Orally BID, 1 tablet with a meal Quantity:60 SANDOVAL PAPPAS Start:27-May-2021 Status:Inactive Comments:500 MG Orally BID, 1 tablet with a meal Azithromycin;250 MG Orally O nce a day, 2 tablet on the first day, then 1 tablet daily for 4 days Quantity:6 SANDOVAL PAPPAS Start:27-Jun-2020 Comments:250 MG Orally Once a day, 2 tablet on the first day, then 1 tablet daily for 4 days escitalopram 10 MG Oral Tabl et;10 MILLIGRAM PO DAILY Start:10-Jun-2020 Comments:10 MG PO DAILY omeprazole 40 MG Delayed Rel ease Oral Capsule;40 MILLIGRAM PO DAILY Start:10-Jun-2020 Comments:40 MG PO DAILY Escitalopram 20 MG Oral Tabl et [Lexapro];20 MG Orally Once a day, 1 tablet SANDOVAL PAPPAS Start:28-May-2020 Comments:20 MG Orally Once a day, 1 tablet Ciprofloxacin 3 MG/ML / Dexamethasone 1 MG/ML Otic Suspension [Ciprodex];0.3-0.1 % Otic Twice a day, 4 drops into affected ear Quantity:1 SANDOVAL MIAN Start:10-Aug-2018 Status:Inactive Comments:0.3-0.1 % Otic Twice a day, 4 drops into affected ear Medrol (Manoj);Medrol (Manoj) Quantity:1 Refills:0 6 tablets by mouth as directed Emanuel Bansal Start:27-Jul-2018 amoxicillin 875 MG / clavula zayra 125 MG Oral Tablet [Augmentin];Augmentin Quantity:20 Refills:0 1 tablet by mouth twice a day Emanuel Bansal Start:27-Jul-2018 promethazine hydrochloride 2 5 MG Oral Tablet;promethazine Quantity:20 Refills:0 1 tablet by mouth every 4 hours as needed PRN Emanuel Bansal Start:27-Jul-2018 omeprazole 40 MG Delayed Rel ease Oral Capsule;omeprazole 40 mg capsule,delayed release 1 By Mouth (PO), QD(Daily) Start:27-Jul-2018 lamoTRIgine 25 MG Oral Table t [LaMICtal];Lamictal 25 mg tablet 1 By Mouth (PO), QD(Daily) Start:27-Jul-2018 sertraline 50 MG Oral Tablet [Zoloft];Zoloft 50 mg tablet 1 By Mouth (PO), QD(Daily) Start:27-Jul-2018 Ventolin HFA;108 (90 Base) M CG/ACT Inhalation every 6 hrs as needed, 2 puffs as needed Quantity:1 SANDOVAL PAPPAS Start:26-Oct-2017 Comments:108 (90 Base) MCG/ACT Inhalation every 6 hrs as needed, 2 puffs as needed Ergocalciferol 20527 UNT Ora l Capsule;87933 UNIT Orally Weekly, 1 capsule Quantity:6 SANDOVAL PAPPAS Start:29-Apr-2017 Status:Inactive Comments:86300 UNIT Orally Weekly, 1 capsule Cyclobenzaprine HCl;10 MG Or ally At bedtime as needed, 1 tablet as needed Quantity:15 SANDOVAL PAPPAS Start:27-Apr-2017 Status:Inactive Comments:10 MG Orally At bedtime as needed, 1 tablet as needed {21 (methylPREDNISolone 4 MG Oral Tablet [Medrol]) } Pack [Medrol Dosepak];4 MG Orally Daily, as directed Quantity:1 SANDOVAL PAPPAS Start:03-Feb-2017 Status:Inactive Comments:4 MG Orally Daily, as directed Oseltamivir 75 MG Oral Capsu le [Tamiflu];75 MG Orally Twice a day, 1 capsule Quantity:10 SANDOVAL MIAN Start:05-Jan-2017 Status:Inactive Comments:75 MG Orally Twice a day, 1 capsule ALPRAZolam 0.5 MG Oral Table t [Xanax];0.5 MG Orally Once a day as needed for panic attacks, 1/2 to 1 tablet Quantity:30 SANDOVAL MIAN Start:11-Nov-2016 Status:Inactive Comments:0.5 MG Orally Once a day as needed for panic attacks, 1/2 to 1 tablet cefdinir 300 MG Oral Capsule ;300 MG Orally every 12 hrs, 1 capsule Quantity:20 SANDOVAL MIAN Start:03-Aug-2016 Status:Inactive Comments:300 MG Orally every 12 hrs, 1 capsule predniSONE 20 MG Oral Tablet ;20 MG Orally Once a day, 2 tablets Quantity:10 SANDOVAL MIAN Start:29-Jul-2016 Comments:20 MG Orally Once a day, 2 tablets 60 ACTUAT Fluticasone propio zayra 0.05 MG/ACTUAT Nasal Inhaler [Flonase];50 MCG/ACT Nasally Twice per day, 1 spray in each nostril Quantity:1 SANDOVAL MIAN Start:12-Mar-2016 Status:Inactive Comments:50 MCG/ACT Nasally Twice per day, 1 spray in each nostril Phentermine HCl;37.5 MG Oral ly Once a day, 1 tablet Quantity:30 SANDOVAL MIAN Start:14-Aug-2015 Status:Inactive Comments:37.5 MG Orally Once a day, 1 tablet 200 ACTUAT Ipratropium Bromi de 0.017 MG/ACTUAT Metered Dose Inhaler [Atrovent];17 MCG/ACT Inhalation Four times a day, 2 puffs Quantity:1 SANDOVAL MIAN Start:24-Jun-2015 Status:Inactive Comments:17 MCG/ACT Inhalation Four times a day, 2 puffs {21 (methylPREDNISolone 4 MG Oral Tablet [Medrol]) } Pack [Medrol Dosepak];4 MG Orally , as directed Quantity:1 SANDOVAL MIAN Start:20-Jun-2015 Status:Inactive Comments:4 MG Orally , as directed Levofloxacin 500 MG Oral Tab let [Levaquin];500 MG Orally Once a day, 1 tablet Quantity:7 SANDOVAL PAPPAS Start:20-Jun-2015 Status:Inactive Comments:500 MG Orally Once a day, 1 tablet Benzonatate;200 MG Orally Th ree times a day, 1 capsule as needed Quantity:21 SANDOVAL PAPPAS Start:03-Jun-2015 Status:Inactive Comments:200 MG Orally Three times a day, 1 capsule as needed Mupirocin 0.02 MG/MG Topical Ointment [Bactroban];2 % Externally Three times a day, 1 application to affected area Quantity:1 SANDOVAL PAPPAS Start:31-May-2015 Status:Inactive Comments:2 % Externally Three times a day, 1 application to affected area Amoxicillin 875 MG / Clavula zayra 125 MG Oral Tablet [Augmentin];875-125 MG Orally Twice a day, 1 tablet Quantity:20 SANDOVAL PAPPAS Start:31-May-2015 Status:Inactive Comments:875-125 MG Orally Twice a day, 1 tablet NexIUM Start:30-Oct-2014 Status:Discontinued estradiol 0.5 MG Oral Tablet Start:30-Oct-2014 Status:Discontinued sertraline 50 MG Oral Tablet Start:30-Oct-2014 Status:Discontinued Flonase;, SANDOVAL PAPPAS Status:Inactive Comments:, Iwakezrq-Effzwlmmmk-Xlodnzws n;- Externally Once a day, 1 application to affected area SANDOVAL PAPPAS Status:Inactive Comments:- Externally Once a day, 1 application to affected area Multivitamin/Iron;, SANDOVAL PAPPAS Status:Inactive Comments:, Nexium;, SANDOVAL PAPPAS Status:Inactive Comments:, Mirena;, SANDOVAL PAPPAS Comments:, Oil Base;CBD OIL oral drops , SANDOVAL PAPPAS Status:Inactive Comments:CBD OIL oral drops , Anna Allergy;, SANDOVAL PAPPAS Status:Inactive Comments:, Estradiol;, SANDOVAL PAPPAS Status:Inactive Comments:, Sertraline 25 MG Oral Tablet [Zoloft];25 MG Orally Once a day, 1 tablet SANDOVAL PAPPAS Status:Inactive Comments:25 MG Orally Once a day, 1 tablet 120 ACTUAT Triamcinolone Lazaro tonide 0.055 MG/ACTUAT Nasal Inhaler [Nasacort];55 MCG/ACT Nasally Once a day, 1 puff in each nostril Quantity:1 SANDOVAL PAPPAS Status:Inactive Comments:55 MCG/ACT Nasally Once a day, 1 puff in each nostril Prazosin 1 MG Oral Capsule;1 MG Orally Twice a day, 1 capsule SANDOVAL PAPPAS Status:Inactive Comments:1 MG Orally Twice a day, 1 capsule Ondansetron;8 MG Orally ever y 6 hours as needed, 1 tablet Quantity:12 SANDOVAL PAPPAS Status:Inactive Comments:8 MG Orally every 6 hours as needed, 1 tablet lamoTRIgine 100 MG Oral Tabl et [LaMICtal];100 MG Orally Once a day, 1 tablet Quantity:30 SANDOVAL PAPPAS Comments:100 MG Orally Once a day, 1 tablet {21 (Ethinyl Estradiol 0.035 MG / Norethindrone 0.4 MG Oral Tablet) / 7 (Inert Ingredients 1 MG Oral Tablet) } Pack [Ovcon 35 Day];1MG Norethindrone Acetate/20 MCG Ethinyl orally daily, 1 tablet SANDOVAL PAPPAS Status:Inactive Comments:1MG Norethindrone Acetate/20 MCG Ethinyl orally daily, 1 tablet Amoxicillin 775 MG Extended Release Oral Tablet [Moxatag];unknown Orally bid, 1 tablet with a meal SANDOVAL PAPPAS Status:Inactive Comments:unknown Orally bid, 1 tablet with a meal Magnesium;200 MG Orally Once a day, 2 tablets with a meal SANDOVAL PAPPAS Status:Inactive Comments:200 MG Orally Once a day, 2 tablets with a meal Vitamin B12;100 MCG Orally O nce a day, 1 tablet SANDOVAL PAPPAS Status:Inactive Comments:100 MCG Orally Once a day, 1 tablet Probiotic;Orally , SANDOVAL PAPPAS Status:Inactive Comments:Orally , Fexofenadine hydrochloride 1 80 MG Oral Tablet [Anna];, SANDOVAL PAPPAS Status:Inactive Comments:, Multi Vitamin;- Orally Once a day, 1 tablet Quantity:30 SANDOVAL PAPPAS Status:Inactive Comments:- Orally Once a day, 1 tablet ZyrTEC (cetirizine dihydroch loride 10 MG) Oral Tablet;10 MG Orally Once a day, 1 tablet SANDOVAL PAPPAS Status:Inactive Comments:10 MG Orally Once a day, 1 tablet Omeprazole 40 MG Delayed Rel ease Oral Capsule;40 MG , TAKE ONE CAPSULE BY MOUTH DAILY Quantity:90 SANDOVAL PAPPAS Comments:40 MG , TAKE ONE CA PSULE BY MOUTH DAILY Vraylar;1.5 MG Orally , 1 ca psule Quantity:15 SANDOVAL PAPPAS Status:Inactive Comments:1.5 MG Orally , 1 capsule Lurasidone Hydrochloride 20 MG Oral Tablet [Latuda];20 MG Orally Once a day, 2 tablets with food Quantity:60 SANDOVAL PAPPAS Status:Inactive Comments:20 MG Orally Once a day, 2 tablets with food Social History Smoking Status Smokes tobacco daily Recorded: 10-Jun-2020 Heavy tobacco smoker Results INFECTIOUS AGENT, IMMUNOASSAY, DIRECT OBSERVATION; INFLUENZA ([id number]) [facility] Comments:SHWETHA CELESTE 12/07/2016 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 Chlamydia and Gonorrhoeae Encounters Ambulatory 27-Jul-2018 EMANUEL BANSAL (Attending) [facility] 12-Mar-2015 18:28 Rosa Pulliam DO (Attending) [facility] 12-Mar-2015 14:54 Rosa Pulliam DO (Attending) [facility] 22-Oct-2014 16:42 Rosa Pulliam DO (Attending) [facility]
--- OUTSIDE RECORDS SUMMARY | 2025-05-21 16:03 | XMS_ITS | Clinical Summary ---
Author Organization [facility] Address [address] [address] Phone Care Team Providers Care Business Mgr Name Role Phone Steph Kessler Primary Care Provider [phone] Aleyda Palomo Unavailable Unavailable Radha Ivy MD Unavailable [phone] Choa Gibson MD Unavailable Allergies Active Allergy Reactions Criticality Noted Date [...] CDT): Assessment & Plan (12/05/2024 3:24 PM WARDROBE SUPERVISOR): Continue to follow-up with neurosurgery and pain management Temporary parking permit completed and scanned into chart Will work on weight loss with medical nutrition therapy Herniated lumbar intervertebral disc 12/05/2024 Assessment & Plan (12/05/2024 3:24 PM WARDROBE SUPERVISOR): Continue to follow-up with neurosurgery and pain management Temporary parking permit completed and scanned into chart Will work on weight loss with medical nutrition therapy Degeneration of intervertebr al disc of lumbar region with discogenic back pain and lower extremity pain 12/05/2024 Assessment & Plan (12/05/2024 3:24 PM WARDROBE SUPERVISOR): Continue to follow-up with neurosurgery and pain management Temporary parking permit completed and scanned into chart Will work on weight loss with medical nutrition therapy Boils of multiple sites 12/05/2024 Assessment & Plan (12/05/2024 3:25 PM WARDROBE SUPERVISOR): Actions and side effects of meds discussed. [...] Hypothyroidism Assessment & Plan (12/05/2024 3:23 PM WARDROBE SUPERVISOR): Would benefit for medical nutrition therapy, ordered [...] 12/22/2023 Assessment & Plan (12/22/2023 4:27 PM WARDROBE SUPERVISOR): Doing well with Vyvanse, continue Annual physical exam 12/22/2023 Assessment & Plan (12/22/2023 4:28 PM WARDROBE SUPERVISOR): Exercise 5 days a week, 30 mins [...] Nurse Assessment & Plan (12/22/2023 4:29 PM WARDROBE SUPERVISOR): Smoking cessation discussed Carpal tunnel syndrome, bilateral 11/03/2023 Assessment & Plan (12/22/2023 4:27 PM WARDROBE SUPERVISOR): Uncontrolled, chronic. Upcoming appointment with hand surgery Assessment & Plan (11/03/2023 3:37 PM WARDROBE SUPERVISOR): Rest, Ice baths 3 times a day Unable to use NSAIDs right now due to epigastric pain but try Voltaren gel Can use tylenol for breakthrough pain Home exercises discussed and demonstrated Cock up splint at night time if helpful Avoid wrist flexion Hand surgery consult due to severity and nerve conduction studies ordered Pure hypercholesterolemia 11/03/2023 Assessment & Plan (12/05/2024 3:23 PM WARDROBE SUPERVISOR): Would benefit for medical nutrition therapy, ordered Assessment & Plan (12/22/2023 4:27 PM WARDROBE SUPERVISOR): Labs were better, continue healthy eating patterns Assessment & Plan (11/03/2023 3:37 PM WARDROBE SUPERVISOR): Low-fat diet, check labs Insulin resistance 11/03/2023 Assessment & Plan (12/05/2024 3:23 PM WARDROBE SUPERVISOR): Would benefit for medical nutrition therapy, ordered Assessment & Plan (12/22/2023 4:27 PM WARDROBE SUPERVISOR): Continue metformin, stable Assessment & Plan (11/03/2023 3:38 PM WARDROBE SUPERVISOR): Low carb diet recommended, check labs Spondylosis of lumbar spine 09/08/2023 Assessment & Plan (12/05/2024 3:23 PM WARDROBE SUPERVISOR): Continue to follow-up with neurosurgery and pain [...] 06/10/2023 Assessment & Plan (12/05/2024 3:22 PM WARDROBE SUPERVISOR): BMI is trending up. Would benefit for [...] gain Assessment & Plan (12/22/2023 4:26 PM WARDROBE SUPERVISOR): BMI has been stable. We briefly discussed [...] readjusted Assessment & Plan (12/22/2023 4:26 PM WARDROBE SUPERVISOR): Uncontrolled due to difficulties with facemask, has [...] pressure while sleeping. Her DME is adapt. [id number] 03/11/2023 Assessment & Plan (12/22/2023 4:26 PM WARDROBE SUPERVISOR): resolving Lumbar radiculopathy 01/19/2023 Assessment & Plan (12/05/2024 3:23 PM WARDROBE SUPERVISOR): Continue to follow-up with neurosurgery and pain management Temporary parking permit completed and scanned into chart Will work on weight loss with medical nutrition therapy Hirsutism 10/27/2022 Assessment & Plan (08/17/2024 3:28 PM CDT): Uncontrolled chronic problem Increase spironolactone to 50 mg daily Follow-up in 3-6 months may need to increase that time Assessment & Plan (12/22/2023 4:23 PM WARDROBE SUPERVISOR): Controlled chronic condition continue spironolactone Assessment & Plan (11/03/2023 3:38 PM WARDROBE SUPERVISOR): Check labs, consider increasing spironolactone to help with abnormal hair growth Prediabetes 10/27/2022 Assessment & Plan (12/05/2024 3:22 PM WARDROBE SUPERVISOR): Would benefit for medical nutrition therapy, ordered Assessment & Plan (08/17/2024 3:29 PM CDT): Recheck A1c Continue metformin Low carb diet Assessment & Plan (12/22/2023 4:23 PM WARDROBE SUPERVISOR): Controlled chronic condition continue metformin Assessment & Plan (11/03/2023 3:35 PM WARDROBE SUPERVISOR): I highly encouraged her to follow a low carb diet. I explained that this will help with her carpal tunnel pain and inflammation in her wrists Bipolar disorder, in full re mission, most recent episode mixed 10/27/2022 Assessment & Plan (12/22/2023 4:24 PM WARDROBE SUPERVISOR): Controlled chronic condition continue a psychiatry care [...] indigestion Assessment & Plan (12/22/2023 4:24 PM WARDROBE SUPERVISOR): Stable on Prilosec. Long-term use of Prilosec discussed with patient. She wishes to remain on it. Briefly discussed weight loss surgery Assessment & Plan (11/03/2023 3:36 PM WARDROBE SUPERVISOR): She is experiencing some abdominal pain secondary to NSAID use. She currently denies black tarry stools. I recommended doubling her Prilosec for a week so 40 mg morning and night. Avoid NSAIDs for now. Chronic post-traumatic stress disorder (PTSD) Assessment & Plan (12/22/2023 4:25 PM WARDROBE SUPERVISOR): Controlled in chronic condition, managed by Psychiatry continue prescription medication Vitamin D deficiency 10/27/2022 Overview (10/27/2022): Continue with vitamin-D supplementation Assessment & Plan (02/07/2025 3:22 PM CDT): Orders: ergocalciferol (VITAMIN D) 50,000 unit capsule; Take 1 capsule (50,000 Units total) by mouth every 14 (fourteen) days Assessment & Plan (12/22/2023 4:25 PM WARDROBE SUPERVISOR): Continue with vitamin-D supplementation, stable Assessment & Plan (11/03/2023 3:36 PM WARDROBE SUPERVISOR): Check labs Low serum vitamin B12 10/27/2022 Overview (10/27/2022): Continue B12 supplementation, check labs Assessment & Plan (12/22/2023 4:25 PM WARDROBE SUPERVISOR): Continue with B12 supplementation, at goal Assessment & Plan (11/03/2023 3:36 PM WARDROBE SUPERVISOR): Check labs Chronic left-sided low back pain with left-sided sciatica 10/27/2022 Assessment & Plan (12/05/2024 3:22 PM WARDROBE SUPERVISOR): Continue to follow-up with neurosurgery and pain management Temporary parking permit completed and scanned into chart Will work on weight loss with medical nutrition therapy Assessment & Plan (12/22/2023 4:26 PM WARDROBE SUPERVISOR): Remains uncontrolled but chronic. Working with pain [...] 03/30/2023 Assessment & Plan (11/02/2022 11:31 AM WARDROBE SUPERVISOR): The patient presents with snoring, witnessed apneas and daytime hypersomnia. I have recommended proceeding with a nocturnal polysomnogram with a split night protocol if necessary and no MSLT. She will follow-up here in 3 months. Pilonidal cyst 10/27/2022 12/22/2023 Overview (10/27/2022): to surgery for excision Suspected sleep apnea 10/27/20223 Overview (10/27/2022): Sleep study indicated History of suicidal ideation 10/27/2022 12/22/2023 Overview (10/27/2022): to psychiatry Cellulitis of female breast 10/27/2022 12/22/2023 Encounters Date Type Department Care Team Description 05/10/2025 2:13 PM CDT - 05/10/2025 3:[address] [facility] Emergency Department [address] [place] [id number] Abdominal pain (Primary Dx) Discharge Disposition: Discharge to home or self care 05/10/2025 Orders Only [facility] Gastroenterology at [address] [place] [phone] Ramirez Mccarty MD Abdominal pain (Primary Dx) 04/30/2025 10:50 AM CDT - 04/30/2025 11:59 PM CDT Hospital Encounter [facility] [address] [facility] Advanced [facility] [address] [place], [place] [phone] Meir Hernandez NP Lumbar radiculopathy (Primary Dx); Chronic bilateral low back pain with left-sided sciatica Discharge Disposition: Discharge to home or self care 04/23/2025 Results Follow-Up [facility] Family Medicine [address] [phone] Steph Kessler PA XR Abdomen 1 View AP 04/20/2025 9:32 AM CDT Anesthesia Event [facility] OR [address] [place] [address] Sylvester Brannon MD Lee, Walter, MD 04/20/2025 9:30 AM CDT - 04/20/2025 10:55 AM CDT Surgery [facility] OR [address] [place] [address] Chao Gibson MD RECTAL EXAMINATION UNDER ANESTHESIA, UNROOFING OF PERIANAL CHRONIC INFLAMMATORY CAVITY, 04/20/2025 7:09 AM CDT - 04/20/2025 12:02 PM CDT Hospital Encounter [facility] Main OR [address] [place] [address] Chao Gibson MD Discharge Disposition: Discharge to home or self care 04/17/2025 1:20 PM CDT Pre-Admission Testing [facility] Pre Admit Testing [address] [place] [address] Pre-op testing (Primary Dx) 04/11/2025 3:09 PM CDT - 04/11/2025 11:59 PM CDT Hospital Encounter [facility] Diagnostic Imaging [address] [place] [address] Chronic idiopathic constipation; LUQ pain Discharge Disposition: Discharge to home or self care 04/11/2025 11:00 AM CDT Office Visit [address] [phone] Steph Kessler PA Pilonidal abscess of cleft (Primary Dx); Chronic idiopathic constipation; LUQ pain 04/11/2025 Letter (Out) [address] [phone] 04/11/[address] [phone] Steph Kessler PA 04/04/[address] [phone] Steph Kessler PA 03/21/2025 Results Follow-Up [address] [phone] Nikole Ovalles NP Hemoglobin A1c, Basic metabolic panel, eGFR 03/20/2025 1:10 PM CDT Lab [facility] OP Lab [address] [place] [address] Prediabetes; Pure hypercholesterolemia 03/20/2025 12:30 PM CDT Office Visit [address] [phone] Steph Kessler PA Chronic idiopathic constipation (Primary Dx); Gastroesophageal reflux disease, unspecified whether esophagitis present; Acute cystitis without hematuria; Foraminal stenosis of lumbar region; At moderate risk for fall 03/08/2025 Nurse Triage [address] [phone] Steph Kessler PA 02/20/2025 E-Visit [address] [phone] Steph Kessler PA Your Medications from Last 3 Months Immunizations Immunization Administration Dates Next Due Influenza, [...] Refused),11/22/2020(Deferred: Patient Refused) Tdap 06/15/2024,03/07/2014 Varicella 03/07/2014 Surgical History Surgery Date Site/Laterality Comments WISDOM TOOTH EXTRACTION TONSILECTOMY, ADENOIDECTOMY, BILATERAL MYRINGOTOMY AND TUBES Bilateral CARPAL TUNNEL RELEASE 12/23/2023 - 01/20/2024 Bilateral COLONOSCOPY ABLATION lumbar SINUS SURGERY 02/08/2025 septoplasty with margarita turbinate reduction Medical History Medical History Date Comments GERD (gastroesophageal reflux disease) 0 Anxiety 2000 Menstrual problem 2002 Bipolar disorder, in full re mission, most recent episode mixed 10/27/2022 Stable at this time on curre nt meds. Patient is aware I can not prescribe Lamictal. She is interested in seeing a psychiatrist. Referral placed. Chronic left-sided low back pain with left-sided sciatica 10/27/2022 Chronic post-traumatic stres s disorder (PTSD) 10/27/2022 Continue with counseling and continue current meds Gastroesophageal reflux disease 10/27/2022 Stable on Prilosec. Long-term use of Prilosec discussed with patient. She wishes to remain on it. Screen for B12 deficiency Hirsutism 10/27/2022 Consider an andr ogen papo if testosterone is high, check lab History of suicidal ideation 10/27/2022 to psychiatry Low serum vitamin B12 10/27/2022 Continue B 12 supplementation, check labs Pilonidal cyst 10/27/2022 to surgery for e xcision Prediabetes 10/27/2022 Check labs, will provide direction for metformin at that time. Patient would prefer the extended release Vitamin D deficiency 10/27/2022 Continue wi th vitamin-D supplementation Sleep apnea wears cpap night ly Total body pain Low back pain Anal fissure Diabetes mellitus (HCC) Arthritis 2022 ADHD (attention deficit hype ractivity disorder) Allergic rhinitis Anemia Motion sickness Family History Medical History Relation Name Comments Bipolar disorder Brother Roger Mental illness Brother Roger athlete's heart Brother Roger Mental illness Father Santos Sleep apnea Father Santos Arthritis Maternal Grandfather Sandoval Kiran Diabetes Maternal Grandfather Sandoval Kiran Hearing loss Maternal Grandfather Sandoval Kiran Heart disease Maternal Grandfather Sandoval Kiran Hypertension Maternal Grandfather Sandoval Kiran Obesity Maternal Grandfather Sandoval Kiran Other Maternal Grandfather Sandoval Kiran Skin cancer Maternal Grandfather Sandoval Kiran Anemia Maternal Grandmother Dior Kiran Arthritis Maternal Grandmother Dior Kiran Miscarriages / Stillbirths Maternal Grandmother Shirle y Kiran Thyroid disease Maternal Grandmother Dior Kiran Allergies Mother Maria Elena Chang Asthma Mother Maria Elena Chang Depression Mother Maria Elena Chang Heart disease Mother Maria Elena Chang Hyperlipidemia Mother Maria Elena Chang Hypertension Mother Maria Elena Chang Mental illness Mother Maria Elena Chang Miscarriages / Stillbirths Mother Maria Elena Sosa gton Obesity Mother Maria Elena Chang Sleep apnea Mother Maria Elena Chang Arthritis Mother's Sister Azalea Koch Alcohol abuse Paternal Grandfather Timmack Chang Hearing loss Paternal Grandfather Timmack Cornejoton Relation Name Status Comments Brother Roger Alive Father Santos Alive Maternal Grandfather Sandoval Beck Maternal Grandmother Dior Beck Alive Mother Maria Elena Chang Alive Mother's Sister Azalea Koch Paternal Grandfather Timmack Chang Paternal Grandmother Social History Tobacco Use Types Packs/Day Years [...] CDT Gender Identity Female 10/26/2022 10:54 AM WARDROBE SUPERVISOR Sexual Orientation Bisexual 10/26/2022 10 :54 AM WARDROBE SUPERVISOR Obstetrics History Last Filed Vital Signs Vital Sign Reading [...] Description 05/31/2025 9:30 AM CDT Hospital Encounter [facility] GI Lab [address] [place] [address] Ramirez Mccarty MD [address] [facility] [address] [place] [address] 05/31/2025 9:30 AM CDT - 05/31/2025 10:00 AM CDT Surgery [facility] [address] [place] [address] Ramirez Mccarty MD [address] [facility] [place] [place] [address] ESOPHAGOGASTRODUODENOSCOPY Scheduled Procedures Name Priority Associated Diagnoses Date/Ti me ESOPHAGOGASTRODUODENOSCOPY Abdominal pain 05/31/2025 9:30 AM CDT COLONOSCOPY Abdominal pain 05/31/2025 9:30 AM CDT Health Maintenance Due Date Last Done Comments Hepatitis C Screening 1990 Hepatitis B Screening 2008 Pneumococcal vaccine <65 (1 of 2 - PCV) 2009 Regular Well Visit/Exam 18-64 12/22/2024 12/22/2023 Depression Screening 04/11/2026 04/11/2025, 03/20/2025, 02/07/2025, Additional history exists Cervical Cancer Screening 03/04/2028 03/04/2023 DTaP/Tdap/Td Vaccine (3 - Td or Tdap) 06/15/2034 06/15/2024, 03/07/2014 Varicella Vaccines Discontinued 03/07/2014 Influenza Vaccine Completed 01/08/2025 HPV Vaccines Aged Out No longer eligi ble based on patient's age to complete this topic Goals Goal Patient Goal Type Associated Problems [...] GLUCOSE DEVICE Routine 04/20/2025 10:36 AM CDT CA AN PROCEDURE PLACEHOLDER Routine 04/20/2025 9:56 AM CDT CA AN ELECTIVE ENDOTRACHEAL AIRWAY Routine 04/20/2025 9:56 [...] Phani Acosta M.D. KR: JAVED Report ID: [id number] Reading Location: [place] [address] Procedure Note Phani Acosta MD - 05/10/2025 [...] Electronically signed by Phani Acosta M.D. KR: KR Report ID: [id number] Reading Location: [id number] [place] [facility] IMG CT PROCEDURES Final Re [...] ur Yellow Yellow Comment:Testing performed by : [address] [address] Clarity, ur Clear Clear GLENNY Comment:Testing performed by : [address] [address] Specific gravity, ur 1.015 1.003 - 1.030 GLENNY Comment:Testing performed by : [address] [address] pH, urine 5.5 GLENNY Comment: Interpretive Data U rine pH is affected by diet, medications, systemic acid-base disturbances, and renal tubular function. pH may affect urinary stone formation. For example, urine pH below 6.0 may help reduce the tendency for calcium phosphate stones and pH greater than 6.0 may reduce the tendency for uric acid stone formation. Source: UNATION Current Interpretive Data was last revised on 2017 Testing performed by: [address] [address] Protein, ur ql Negative Negative GLENNY Comment:Testing performed by : [address] [address] Glucose, ur ql Negative Negative GLENNY GARCIA Comment:Testing performed by : [address], [place]., [address] Ketones, ur Negative Negative GLENNY GRACIA Comment:Testing performed by : [address], [place]., [address] Bilirubin, ur Negative Negative GLENNY GARCIA Comment:Testing performed by : [address], [place]., [address] Blood, ur Trace(A) Negative GLENNY GARCIA Comment:Testing performed by : [address], [place]., [address] Urobilinogen, ur <2.0 <2.0 mg/dL GLENNY GARCIA Comment:Testing performed by : [address], [place]., [address] Nitrite, ur Negative Negative GLENNY GARCIA Comment:Testing performed by : [address], [place]., [address] Leukocyte esterase, ur Negative Negative GLENNY GARCIA Comment:Testing performed by : [address], [place]., [address] UA reflex comment Reflex to microscopic UA will be performed. GLENNY GARCIA Comment:Testing performed by : [address], [place]., [address] Urine 05/10/2025 12:2 1 PM CDT 05/10/2025 12:25 PM CDT Alcides Lu DO LAB MICROBIOLOGY - GENERAL ORDERABLES Final Result Performing Organization Address City/State/[facility] Co de Phone Number GLENNY GARCIA [address] [facility] Department of Laboratories [place], [place] [phone] * (ABNORMAL) Urinalysis, microscopic only (05/10/2025 12:21 PM CDT) WBC, ur 0-5 0 - 5 /HPF Comment:Testing performed by : [address], [place]., [address] RBC, ur 3-5(A) 0 - 2 /HPF GLENNY GARCIA Comment:Testing performed by : [address] [address] Epithelial cells, squamous, ur 21-50(A) 0 - 5 /HPF GLENNY Comment:Testing performed by : [facility], [address] [place] [address]., [address] Mucous, ur Present(A) GLENNY Comment:Testing performed by : [address] [address] Culture Reflex Comment Reflex conditions for urine culture (WBC >10) not met. GLENNY Comment:Testing performed by : [address] [address] Urine 05/10/2025 12:2 1 PM CDT 05/10/2025 12:25 PM CDT Alcides Lu DO LAB URINE ORDERABLES Final Result GLENNY [address] [facility] Department [place] [address] * eGFR (05/10/2025 12:13 PM CDT) eGFR >90 >=60 mL/min/1. 73 [...] was last reviewed 2021. Testing performed by: [address] [address] Blood 05/10/2025 12:1 3 PM CDT 05/10/2025 12:16 PM CDT us Alcides Lu DO LAB BLOOD ORDERABLES Final Result GLENNY [address] [facility] Department [place] [address] * (ABNORMAL) Differential, auto (05/10/2025 12:13 PM CDT) Neutrophil abs 7.29(H) 1.50 - 6.50 K/cumm Comment:Testing performed by : [address] [address] Imm gran abs 0.05 0.00 - 0.10 K/cumm GLENNY Comment:Testing performed by : [address] [address] Lymphocyte abs 2.61 0.80 - 3.30 K/cumm GLENNY Comment:Testing performed by : [address] [address] Monocyte abs 0.47 0.20 - 0.80 K/cumm GLENNY Comment:Testing performed by : [address] [address] Eosinophil abs 0.08 0.00 - 0.50 K/cumm GLENNY Comment:Testing performed by : [address] [address] Basophil abs 0.06 0.00 - 0.10 K/cumm GLENNY Comment:Testing performed by : [address] [address] Neutrophil pct 68.9 % GLENNY Comment: Interpretive Data Percent cell count reference ranges are not reported, since discordance with absolute values may lead to misinterpretation of CBC data. Current Interpretive Data was last revised on 2018. Testing performed by: [address] [address] Imm gran pct 0.5 % GLENNY Comment: Interpretive Data Percent cell count reference ranges are not reported, since discordance with absolute values may lead to misinterpretation of CBC data. Current Interpretive Data was last revised on 2018. Testing performed by: [address] [address] Lymphocyte pct 24.7 % [facility] Comment: Interpretive Data Percent cell count reference ranges are not reported, since discordance with absolute values may lead to misinterpretation of CBC data. Current Interpretive Data was last revised on 2018. Testing performed by: [address] [address] Monocyte pct 4.5 % [facility] Comment: Interpretive Data Percent cell count reference ranges are not reported, since discordance with absolute values may lead to misinterpretation of CBC data. Current Interpretive Data was last revised on 2018. Testing performed by: [address] [address] Eosinophil pct 0.8 % [facility] Comment: Interpretive Data Percent cell count reference ranges are not reported, since discordance with absolute values may lead to misinterpretation of CBC data. Current Interpretive Data was last revised on 2018. Testing performed by: [address] [address] Basophil pct 0.6 % [facility] Comment: Interpretive Data Percent cell count reference ranges are not reported, since discordance with absolute values may lead to misinterpretation of CBC data. Current Interpretive Data was last revised on 2018. Testing performed by: [address] [address] Blood 05/10/2025 12:1 3 PM CDT 05/10/2025 12:15 PM CDT us Alcides Lu DO LAB BLOOD ORDERABLES Final Result GLENNY [address] [facility] Department [place] [address] * (ABNORMAL) CBC with auto differential (05/10/2025 12:13 PM CDT) WBC 10.56(H) 3.80 - 9.90 K/cumm Comment:Testing performed by : [address] [address] Hgb 11.4(L) 11.9 - 15.5 g/dL GLENNY Comment:Testing performed by : [address] [address] Hct 34.3(L) 35.6 - 45.5 % GLENNY Comment:Testing performed by : [address] [address] Plt 297 150 - 400 K/cumm GLENNY Comment:Testing performed by : [address] [address] MPV 10.2 9.1 - 12.3 fL GLENNY Comment:Testing performed by : [address], [address] RBC 3.95 3.90 - 5.20 M/cumm GLENNY Comment:Testing performed by : [address] [address] MCV 86.8 81.3 - 96.4 fL GLENNY Comment:Testing performed by : [address] [address] MCH 28.9 27.1 - 33.3 pg GLENNY Comment:Testing performed by : [address] [address] MCHC 33.2 32.3 - 35.7 g/dL GLENNY Comment:Testing performed by : [address] [address] RDW CV 14.5 11.1 - 14.9 % GLENNY Comment:Testing performed by : [address] [address] RDW SD 46.0 35.7 - 48.1 fL GLENNY Comment:Testing performed by : [address], [address] NRBC abs 0.00 0.00 - 0.01 K/cumm GLENNY Comment:Testing performed by : [address] [address] Blood Venous blood specimen / Unknown 05/10/2025 12:13 PM CDT 05/10/2025 12:15 PM CDT Alcides Peterson Jorgerajinder LAB BLOOD ORDERABLES Final Result GLENNY [address] [address] * Lipase (05/10/2025 12:13 PM CDT) Lipase 28 10 - 99 Units/L Comment:Testing performed by : [address] [address] Blood Venous blood specimen / Unknown 05/10/2025 12:13 PM CDT 05/10/2025 12:16 PM CDT Alcides Lu LAB BLOOD ORDERABLES Final Result Performing Organization Address City/[facility] Co de Phone Number GLENNY [address] [address] * Comprehensive metabolic panel (05/10/2025 12:13 PM CDT) Sodium 137 135 - 145 mmol/L Comment:Testing performed by : [address] [address] Potassium, pl 4.2 3.3 - 4.9 mmol/L GLENNY Comment:Testing performed by : [address] [address] Chloride 100 97 - 110 mmol/L GLENNY Comment:Testing performed by : [address] [address] CO2 25 22 - 32 mmol/L GLENNY Comment:Testing performed by : [address] [address] Anion gap 12 2 - 15 mmol/L GLENNY Comment:Testing performed by : [address] [address] BUN 12 6 - 25 mg/dL GLENNY Comment:Testing performed by : [address] [address] Creatinine 0.80 0.60 - 1.10 mg/dL GLENNY Comment:Testing performed by : [address] [address] Glucose 151 70 - 199 mg/dL GLENNY Comment: Interpretive Data Fasting glucose >/= 126 [...] classification and Diagnosis of Diabetes Diabetes Care 2021; 46: S19-S40. Current interpretive data was last revised 2022. Testing performed by: [address] [address] Calcium 9.2 8.5 - 10.3 mg/dL GLENNY Comment:Testing performed by : [address] [address] Bilirubin, total 0.2 0.1 - 1.2 mg/dL GLENNY Comment:Testing performed by : [address] [address] Protein, pl 6.8 6.5 - 8.5 g/dL GLENNY Comment:Testing performed by : [address] [address] Albumin 4.2 3.5 - 5.0 g/dL GLENNY Comment:Testing performed by : [address] [address] Alk phos 96 40 - 130 Units/L GLENNY Comment:Testing performed by : [address] [address] ALT 25 7 - 45 Units/L GLENNY Comment:Testing performed by : [address] [address] AST 22 10 - 45 Units/L GLENNY Comment:Testing performed by : [address] [address] Blood 05/10/2025 12:1 3 PM CDT 05/10/2025 12:16 PM CDT us Alcides Lu DO LAB BLOOD ORDERABLES Final Result Performing Organization Address [facility] de Phone Number GLENNY [address] [address] * POCT glucose (05/10/2025 12:03 PM CDT) Glucose, POC 178 70 - 199 mg/dL Comment:Testing performed by : [facility], [address] [place] [address]., [address] Glucose comment 1 Use This Result GLENNY Comment:Testing performed by : [address] [address] Blood 05/10/2025 12:0 3 PM CDT 05/10/2025 12:03 PM CDT us Notinfile Unknown LAB POCT ORDERABLES - DEVICE F inal Result Performing Organization Address [facility] de Phone Number HERMAN[address] [address] * POCT glucose (04/20/2025 10:36 AM CDT) Glucose, POC 116 70 - 199 mg/dL Comment:Testing performed by : [address] [address] Blood 04/20/2025 10:3 6 AM CDT 04/20/2025 10:36 AM CDT Chao Gibson MD LAB POCT ORDERABLES - DEVICE Final Result Performing Organization Address [facility] Co de Phone Number [address] [address] * CA AN ELECTIVE ENDOTRACHEAL AIRWAY, CA AN PROCEDURE PLACEHOLDER (04/20/2025 9:56 AM CDT) Narrative Celia Peralta CRNA - 04/20/2025 9:56 AM CDT Celia Peralta CRNA 04/20/2025 9:57 AM Airway Patient location: OR Urgency: elective Date/time: 04/20/2025 9:44 AM Indications for airway management: anesthesia Difficult airway: no Staff: Supervising provider: Sylvester Brannon MD Placed by: TRANSFER DRIVER: Celia Peralta CRNA Emergent airway documentation: Risks [...] with: silk tape Number of attempts: 1no us Sylvester Brannon MD ANESTHESIA ORDERAB LES Final Result * (ABNORMAL) POC Blood Gas and Chemistries, Venous - (04/20/2025 8:22 AM CDT) [facility] Signature pH,robert POC 7.35 7.32 - 7.43 Comment:Testing performed by : [address] [address] pCO2, robert POC 45 40 - 50 mmHg GLENNY Comment:Testing performed by : [address] [address] pO2,robert POC 39 mmHg GLENNY Comment: Interpretive Data No reference range established. Current interpretive data was last revised 2020. Testing performed by: [address] [address] HCO3, robert (Calc) POC 25 20 - 30 mmol/L GLENNY Comment:Testing performed by : [address] [address] Base excess, robert POC -1 mmol/L GLENNY Comment: Interpretive Data No reference range established. Current interpretive data was last revised 2020. Testing performed by: [address] [address] Hemoglobin, robert POC 11.6(L) 11.9 - 15.5 g/dL GLENNY Comment:Testing performed by : [address] [address] Hematocrit, robert POC 34.0(L) 35.6 - 45.5 % GLENNY Comment:Testing performed by : [address] [address] Sodium, robert POC 139 135 - 145 mmol/L GLENNY Comment:Testing performed by : [address] [address] Potassium, robert POC 4.1 3.3 - 4.9 mmol/L GLENNY Comment: Interpretive Data This method is not able to assess for hemolysis, which may falsely increase potassium concentrations. If further testing is needed to evaluate this result, consider in-laboratory plasma potassium. Current Interpretive Data was last revised on 2022. Testing performed by: [address] [address] Glucose, robert POC 102 70 - 199 mg/dL GLENNY Comment:Testing performed by : [address] [address] Ionized Calcium, robert POC 5.00 4.50 - 5.10 mg/dL GLENNY Comment:Testing performed by : [address] [address] Blood 04/20/2025 8:22 AM CDT 04/20/2025 8:22 AM CDT us Chao Gibson MD LAB POCT ORDERABLES - DEVICE Final Result GLENNY GARCIA [address] [facility] Department [place] [address] * POCT glucose (04/20/2025 7:40 AM CDT) [facility] Glucose, POC 100 70 - 199 mg/dL Comment:Testing performed by : [address], [place]., [address] Blood 04/20/2025 7:40 AM CDT 04/20/2025 7:40 AM CDT Chao Gibson MD LAB POCT ORDERABLES - DEVICE Final Result GLENNY [address] [facility] Department [place] [address] * POCT hCG, urine (04/20/2025 7:30 AM CDT) HCG, ur, POC Negative Negative Lot Number [id number] QC Backgroud Clear Acceptable QC Control Line Acceptable Urine 04/20/2025 7:30 AM CDT Manohar Reece MD POINT OF CARE TEST ORDERABLES Fi nal Result * ECG 12 lead (04/17/2025 2:02 PM CDT) Ventricular Rate EKG/Min 67 BPM [facility] Atrial Rate 67 BPM [facility] CA-Interval (MSEC) 156 ms [facility] QRS-Interval (MSEC) 98 ms [facility] QT-Interval (MSEC) 414 ms [facility] QTc 437 ms [facility] P [place] 58 degrees [facility] R [place] 47 degrees [facility] T [place] 50 degrees [facility] Diagnosis Normal sinus rhythm Normal ECG When compared with ECG of 13-JAN-2024 13:38, No significant change was found Confirmed by SULTAN TUTTLE M.D. ([id number]) on 04/17/2025 4:17:05 PM [facility] 04/17/2025 2:02 PM CDT 04/17/2025 4:17 PM CDT Manohar Reece MD ECG ORDERABLES Final Result [facility] * XR Abdomen 1 View [...] Nicholas Wilcox M.D. RW: NUBIA Report ID: [id number] Reading Location: [id number] Procedure Note Nicholas Wilcox MD - 04/22/2025 [...] Nicholas Wilcox M.D. RW: NUBIA Report ID: [id number] Reading Location: [id number] Steph DC IMG XR PROCEDURES Final Result * eGFR [...] was last reviewed 2021. Testing performed by: [address] [address] Blood 03/20/2025 1:19 PM CDT 03/20/2025 7:12 PM CDT us Nikole Ovalles NP LAB BLOOD ORDERABLES Final R esult HERMANJUNITO [address] [facility] Department [place] [address] * (ABNORMAL) Hemoglobin A1c (03/20/2025 1:19 PM CDT) Hgb A1C 6.0(H) 4.0 - 5.6 % Comment:Testing performed by : [address] [address] Estimated Average Glucose 126 mg/dL GLENNY GARCIA Comment: The ADA recommends reporting an estimated Average Glucose (eAG) with all Hemoglobin A1c results using the equation derived from a study of 507 normal and diabetic adults. Minority populations were underrepresented and children were not included. (Diabetes Care 31:2970-8569, 2008). The eAG is not equivalent to a fasting glucose. Testing performed by: [address] [address] Blood 03/20/2025 1:19 PM CDT 03/20/2025 7:12 PM CDT us Nikoel Ovalles NP LAB BLOOD ORDERABLES Final R esult GLENNY [address] [facility] Department [place] [address] * (ABNORMAL) Basic metabolic panel (03/20/2025 1:19 PM CDT) Sodium 137 135 - 145 mmol/L Comment:Testing performed by : [address] [address] Potassium, pl 5.1(H) 3.3 - 4.9 mmol/L GLENNY Comment:Testing performed by : [address] [address] Chloride 101 97 - 110 mmol/L GLENNY Comment:Testing performed by : [address] [address] CO2 27 22 - 32 mmol/L GLENNY Comment:Testing performed by : [address] [address] Anion gap 9 2 - 15 mmol/L GLENNY Comment:Testing performed by : [address] [address] BUN 10 6 - 25 mg/dL GLENNY Comment:Testing performed by : [address] [address] Creatinine 0.80 0.60 - 1.10 mg/dL GLENNY Comment:Testing performed by : [address] [address] Glucose 101 70 - 199 mg/dL GLENNY Comment: Interpretive Data Fasting glucose >/= 126 [...] was last revised 2022. Testing performed by: [facility], [address] [place] [address]., [address] Calcium 9.8 8.5 - 10.3 mg/dL GLENNY GARCIA Comment:Testing performed by : [facility], [address] [place] [address]., [address] Blood 03/20/2025 1:19 PM CDT 03/20/2025 7:12 PM CDT us Nikole Ovalles NP LAB BLOOD ORDERABLES Final R esult GLENNY GARCIA [address] [facility] Department [place] [address] * PAP SMEAR WITH HPV (03/04/2023) Historical Provider MD HEALTH MAINTENANCE Final Result from Last 3 Months or Most Recently Relevant to Health Maintenance Insurance [facility] Care Teams Business Mgr Relationship Specialty Start Date End Date Steph Kessler PA [address] [place] [id number] PCP - General Critical Care Med 10/09/22 Aleyda Palomo 09/09/23 Radha Ivy MD [address] [place] [address] Anesthesiologist Pain Management 12/25/24 Chao Gibson MD [address] [place] [id number] Consulting Physician General Surgery 04/20/25
== END 2025-05-21 15:53 | disposition home or self-care (01) ==
PROVIDERS: PCP Physician Assistant; Visit Provider Obstetrics & Gynecology
DX: D25.9 Leiomyoma of uterus, unspecified (principal); Z97.5 Presence of (intrauterine) contraceptive device
CPT/HCPCS: 76830; 76856